=== PATIENT | male | born 1960 | race Caucasian/White ===

== ENCOUNTER 2020-02-29 07:41 | Inpatient (IN) | payer OTHER, SELFPAY ==
[2020-02-29] VITALS (9 sets, daily range): BP systolic 91–141; BP diastolic 63–81; PULSE 55–75; RESP 18–20; TEMP 36.1–36.8; O2SAT 91–98; BMI 46.8
--- NOTE | 2020-02-29 08:19 | ED_ITS ---
HPI - Fall General Chief Complaint: Fall Stated Complaint: fall, face lac Time Seen by Provider: 02/29/20 08:19 Source: EMS Mode of arrival: EMS Limitations: no limitations History of Present Illness HPI Narrative: patient has history of sleep apnea on home oxygen with history of atrial fibrillation was walking upstairs took 2 steps lost balance felt dizzy and fell backwards hitting his head to the oxygen tank came with superficial abrasion to left 2nd toe and right ear pinna patient denies any loss of conscio usness no nausea no vomiting. Patient does have chronic leg venous stasis with poor follow-up has not seen any wound clinic for last 1 year does dressing of his own MD complaint: fall Onset (ago): minute(s) ( just prior to arrival) Fall from: standing Fall witnessed: no Place fall occurred: home Loss of consciousness: none Symptoms prior to fall: dizziness Context: tripped/slipped Location of injury: head and other ( left 2nd toe) Related Data Home Medications Medication Instructions Recorded Confirmed atorvastatin 40 mg PO BEDTIME 02/29/20 02/29/20 bumetanide 2 mg PO BID 02/29/20 02/29/20 diltiazem HCl [Diltia XT] 240 mg PO BID 02/29/20 02/29/20 metoprolol succinate 100 mg PO BID 02/29/20 02/29/20 rivaroxaban [Xarelto] 20 mg PO DAILY 02/29/20 02/29/20 Allergies Allergy/AdvReac Type Severity Reaction Status Date / Time No Known Allergies Allergy Unverified 12/22/19 15:34 [No Known Allergies*] Review of Systems Review of Systems: REVIEW OF SYSTEMS: Pertinent positives and negatives are stated above in the history. GEN: no fevers, chills, fatigue HEENT: no nasal congestion, sore throat, ear pain NEURO: no headache, dizziness, focal weakness PULM: no cough, shortness of breath CV: no chest pain, palpitations, ABD: no abdominal pain, nausea, vomiting, diarrhea : no dysuria, urgency, frequency SKIN: chronic venous stasis bilateral legs ROS otherwise negative x 10 PMFSH Past Medical History Medical History (Updated 02/29/20 @ 14:24 by Wolf Thomas MD) Cellulitis COPD (chronic obstructive pulmonary disease) Hypercholesteremia Hyperlipemia Hypertension Social History Social History Alcohol intake: current Alcohol intake frequency: 3 or more drinks per day Smoking Status: Current every day smoker Use of substances other than those prescribed or required for medical reasons: No Advance Directives: No Advance Directives Information Provided: Yes Physical Exam Vital Signs: Vital Signs: Last Vital Signs Pulse 55 02/29/20 12:00 Resp 18 02/29/20 12:00 BP 91/65 02/29/20 12:00 Pulse Ox 98 02/29/20 12:00 Body Mass Index 46.8 Const: General: cooperative, comfortable, no acute distress and well developed Nutritional Appearance: obese Orientation/consciousness: oriented to person, oriented to place and oriented to time Limitations: no limitations HENMT: Head: Yes abrasion (r EAR) Ears: hearing grossly normal bilaterally General nose exam: Normal external nose present Face and sinus: Yes other (ABRASION RIGHT EAR PAIN) Mouth: Normal oral and palatal mucosa present Eyes: General: appearance normal, both eyes and all related structures Neck: Neck: Yes normal visual inspection Lymphatic: no lymphadenopathy noted Resp: Effort & Inspection: normal respiratory effort Auscultation: clear to auscultation bilaterally, no crackles, no rales and no rhonchi Cardio: Palpation: normal PMI Rate: regular rate Rhythm: regular rhythm Heart sounds: S1 normal heart sound present and S2 normal heart sound present GI: Inspection: Yes normal to inspection Palpation (GI): Soft to palpation and nontender : General: Yes no CVA tenderness Back/Spine/Pelvis: Back: no CVA tenderness Thoracic/Lumbar Spine: thoracic and lumbar spine normal to inspection Skin: Other: venous stasis bilateral lower extremities with crust and weeping wounds with surrounding cellulitis Neuro: General: oriented to person, oriented to place and oriented to time Cranial nerves: Yes CN's II-XII intact bilaterally MDM - Fall MDM Narrative Medical decision making narrative: patient with mechanical fall with no significant injuries CT scan head is negative x-ray is also negative. On further evaluation patient had chronic stasis ulcers on both lower extremities with serous discharge seems to be infected will admit patient for IV antibiotic and wound care as patient has not seen anyone specialist for long time Medical Records Attestation: I reviewed the patient's medical records. Lab Data Attestation: I reviewed the patient's lab results. Result diagrams: 02/29/20 06:07 02/29/20 06:07 Labs: Lab Results 02/29/20 02/29/20 02/29/20 Range/Units 06:07 06:07 08:42 WBC 6.1 (4.8-10.8) X10*3/uL RBC 3.89 L (4.60-5.80) X10*6/uL Hgb 11.3 L (14.0-18.0) g/dl Hct 37.4 L (42-52) % MCV 96.1 (80-98) fL MCH 29.0 (27.0-33.0) pg MCHC 30.2 L (31.0-36.0) g/dl RDW 17.0 H (11.0-16.0) % Plt Count 269 (160-400) X10*3/uL MPV 9.3 L (9.4-12.4) fL Immature Gran % (Auto) 1.5 H (0.0-0.4) % Neut % (Auto) 76.5 H (45-73) % Lymph % (Auto) 7.7 L (20-40) % [place] % (Auto) 13.0 H (2-11) % Eos % (Auto) 1.0 (0-4) % Baso % (Auto) 0.3 (0-2) % Lymph # (Auto) 0.5 L (1.2-4.9) X10*3/uL [place] # (Auto) 0.8 (0.1-1.2) X10*3/uL Eos # (Auto) 0.1 (0.0-0.4) X10*3/uL Baso # (Auto) 0.0 (0.0-0.2) X10*3/uL Abs Immat Gran (auto) 0.09 H (0.00-0.03) X10*3/uL Absolute Neuts (auto) 4.7 (2.0-8.3) X10*3/uL Absolute Nucleated RBC 0.020 H (0.0-0.012) X10*3/uL Nucleated RBC % (auto) 0.3 H (0.0-0.2) /100WBC Smear Tech's Comments VERIFIED PT (10.8-13.0) SEC INR (0.9-1.1) APTT (24.1-38.0) SEC Sodium 135 (135-145) mmol/L Potassium 4.3 (3.3-5.1) mmol/l Chloride 95 L (96-108) mmol/L Carbon Dioxide 27 (22-29) mmol/L Anion Gap 17 (12-20) BUN 28 H (9-16) mg/dL Creatinine 0.87 (0.5-1.4) mg/dL Estim Creat Clear Calc 139.5 Estimated GFR > 60 Random Glucose 111 (60-115) mg/dL Lactic Acid (0.5-2.0) mmol/L Calcium 7.9 L (8.4-10.2) mg/dL Total Bilirubin 0.5 (0.0-1.0) mg/dL Direct Bilirubin 0.4 (0.0-0.5) mg/dL AST 19 (5-37) U/L ALT 12 (0-40) U/L Alkaline Phosphatase 173 H (39-117) U/L Troponin I High Sens (<3.5-35.0) ng/L B-Natriuretic Peptide (<100) pg/mL Total Protein 7.1 (6.5-8.0) g/dL Albumin 3.1 L (3.5-5.0) g/dL Coronavirus (PCR) (Negative) Influenza Type A (PCR) (Negative) Influenza Type B (PCR) (Negative) RSV RNA Qual (PCR) (Negative) 02/29/20 02/29/20 02/29/20 Range/Units 08:42 08:42 08:43 WBC (4.8-10.8) X10*3/uL RBC (4.60-5.80) X10*6/uL Hgb (14.0-18.0) g/dl Hct (42-52) % MCV (80-98) fL MCH (27.0-33.0) pg MCHC (31.0-36.0) g/dl RDW (11.0-16.0) % Plt Count (160-400) X10*3/uL MPV (9.4-12.4) fL Immature Gran % (Auto) (0.0-0.4) % Neut % (Auto) (45-73) % Lymph % (Auto) (20-40) % [place] % (Auto) (2-11) % Eos % (Auto) (0-4) % Baso % (Auto) (0-2) % Lymph # (Auto) (1.2-4.9) X10*3/uL [place] # (Auto) (0.1-1.2) X10*3/uL Eos # (Auto) (0.0-0.4) X10*3/uL Baso # (Auto) (0.0-0.2) X10*3/uL Abs Immat Gran (auto) (0.00-0.03) X10*3/uL Absolute Neuts (auto) (2.0-8.3) X10*3/uL Absolute Nucleated RBC (0.0-0.012) X10*3/uL Nucleated RBC % (auto) (0.0-0.2) /100WBC Smear Tech's Comments PT 14.0 H (10.8-13.0) SEC INR 1.2 H (0.9-1.1) APTT 41.5 H (24.1-38.0) SEC Sodium (135-145) mmol/L Potassium (3.3-5.1) mmol/l Chloride (96-108) mmol/L Carbon Dioxide (22-29) mmol/L Anion Gap (12-20) BUN (9-16) mg/dL Creatinine (0.5-1.4) mg/dL Estim Creat Clear Calc Estimated GFR Random Glucose (60-115) mg/dL Lactic Acid 1.7 (0.5-2.0) mmol/L Calcium (8.4-10.2) mg/dL Total Bilirubin (0.0-1.0) mg/dL Direct Bilirubin (0.0-0.5) mg/dL AST (5-37) U/L ALT (0-40) U/L Alkaline Phosphatase (39-117) U/L Troponin I High Sens (<3.5-35.0) ng/L B-Natriuretic Peptide 205 H (<100) pg/mL Total Protein (6.5-8.0) g/dL Albumin (3.5-5.0) g/dL Coronavirus (PCR) (Negative) Influenza Type A (PCR) (Negative) Influenza Type B (PCR) (Negative) RSV RNA Qual (PCR) (Negative) 02/29/20 02/29/20 Range/Units 08:44 12:23 WBC (4.8-10.8) X10*3/uL RBC (4.60-5.80) X10*6/uL Hgb (14.0-18.0) g/dl Hct (42-52) % MCV (80-98) fL MCH (27.0-33.0) pg MCHC (31.0-36.0) g/dl RDW (11.0-16.0) % Plt Count (160-400) X10*3/uL MPV (9.4-12.4) fL Immature Gran % (Auto) (0.0-0.4) % Neut % (Auto) (45-73) % Lymph % (Auto) (20-40) % [place] % (Auto) (2-11) % Eos % (Auto) (0-4) % Baso % (Auto) (0-2) % Lymph # (Auto) (1.2-4.9) X10*3/uL [place] # (Auto) (0.1-1.2) X10*3/uL Eos # (Auto) (0.0-0.4) X10*3/uL Baso # (Auto) (0.0-0.2) X10*3/uL Abs Immat Gran (auto) (0.00-0.03) X10*3/uL Absolute Neuts (auto) (2.0-8.3) X10*3/uL Absolute Nucleated RBC (0.0-0.012) X10*3/uL Nucleated RBC % (auto) (0.0-0.2) /100WBC Smear Tech's Comments PT (10.8-13.0) SEC INR (0.9-1.1) APTT (24.1-38.0) SEC Sodium (135-145) mmol/L Potassium (3.3-5.1) mmol/l Chloride (96-108) mmol/L Carbon Dioxide (22-29) mmol/L Anion Gap (12-20) BUN (9-16) mg/dL Creatinine (0.5-1.4) mg/dL Estim Creat Clear Calc Estimated GFR Random Glucose (60-115) mg/dL Lactic Acid (0.5-2.0) mmol/L Calcium (8.4-10.2) mg/dL Total Bilirubin (0.0-1.0) mg/dL Direct Bilirubin (0.0-0.5) mg/dL AST (5-37) U/L ALT (0-40) U/L Alkaline Phosphatase (39-117) U/L Troponin I High Sens < 3.5 (<3.5-35.0) ng/L B-Natriuretic Peptide (<100) pg/mL Total Protein (6.5-8.0) g/dL Albumin (3.5-5.0) g/dL Coronavirus (PCR) NEGATIVE (Negative) Influenza Type A (PCR) NEGATIVE (Negative) Influenza Type B (PCR) NEGATIVE (Negative) RSV RNA Qual (PCR) NEGATIVE (Negative) ECG Data Attestation: I personally reviewed and interpreted this ECG as follows: ECG interpretation date: 02/29/20 Interpretation: atrial fibrillation with ventricular rate of 64 RBBB, no acute ST T wave changes poor progression of R-wave impression:: atrial fibrillation no acute ischemia Discharge Plan Discharge Clinical Impression: Infected wound Fall Qualifiers: Encounter type: initial encounter Qualified Code(s): W19.XXXA - Unspecified fall, initial encounter Patient Disposition: Admitted As Inpatient
--- NOTE | 2020-02-29 08:29 | XR_ITS ---
EXAMINATION: CT HEAD WITHOUT CONTRAST. LEFT FOOT AND CHEST. CLINICAL INFORMATION: SOB, cough. Status post fall COMPARISON: None TECHNIQUE: 5 mm thin axial and reformatted 2 mm thin sagittal and coronal images of brain were obtained without contrast. DLP 822. Chest one view. Left foot 3 views. FINDINGS: BRAIN: There is no acute intra-axial, extra-axial bleed, masses or midline shift. The santos to white matter differentiation is maintained. The lateral ventricles are symmetrical in size and configuration without enlargement. Bone windows reveal no calvarial abnormality. I lateral paranasal sinuses and mastoid air cells are well-aerated. There is no scalp soft tissue abnormality. CHEST: The lungs are well-expanded and clear of acute process. Heart size is enlarged with mild prominence of pulmonary vascularity but no congestion seen. No gross bony abnormality noted. LEFT FOOT: There is no visible acute fracture, dislocation or subluxation seen. The ankle mortise and subtalar joints are normal. There is not fully mild dorsal foot soft tissue swelling XR/XR chest 1V IMPRESSION: No acute intracranial process seen. Mild cardiomegaly without congestion. No visible acute fracture or dislocation left foot. Mild nonspecific dorsal foot soft tissue swelling.
--- NOTE | 2020-02-29 08:29 | ECG_ITS ---
Test Reason : SOB Blood Pressure : / mmHG Vent. Rate : 064 BPM Atrial Rate : 153 BPM P-R Int : 000 ms QRS Dur : 152 ms QT Int : 524 ms P-R-T Axes : 000 067 097 degrees QTc Int : 540 ms Atrial fibrillation Right bundle branch block Abnormal ECG When compared with ECG of [id number] Right bundle branch block is new Heart rate has decreased Referred By: Yefri Reyes Electronically Signed By:MOHAN JANG MD
--- NOTE | 2020-02-29 08:30 | PC.NURSE ---
Patient arrives after falling at home after becoming dizzy and tripping on stair. Abrasions noted to right ear, right knee, and both feet. Alert and oriented. Patient lives alone and struggles to get around house and care for self. Patient appears to have poor hygiene. Cellulitis to bilateral legs. Wrapped in gauze but bandages appear saturated and old. Wet dermatitis under all skin folds. Patient reports having COPD and feeling some SOB at times, dry coughing at times. Respirations otherwise appear regular and even. EKG obtained at bedside and shows afib. Patient reports heart issue that he sees lead security officer for but cannot remember what kind of issue. Reports taking metoprolol. IV established and labs drawn. Patient tolerated well. Evaluated by Dr. Reyes. Went for imaging. Awaiting results.
--- NOTE | 2020-02-29 08:34 | CT_ITS ---
EXAMINATION: CT HEAD WITHOUT CONTRAST. LEFT FOOT AND CHEST. CLINICAL INFORMATION: SOB, cough. Status post fall COMPARISON: None TECHNIQUE: 5 mm thin axial and reformatted 2 mm thin sagittal and coronal images of brain were obtained without contrast. DLP 822. Chest one view. Left foot 3 views. FINDINGS: BRAIN: There is no acute intra-axial, extra-axial bleed, masses or midline shift. The santos to white matter differentiation is maintained. The lateral ventricles are symmetrical in size and configuration without enlargement. Bone windows reveal no calvarial abnormality. I lateral paranasal sinuses and mastoid air cells are well-aerated. There is no scalp soft tissue abnormality. CHEST: The lungs are well-expanded and clear of acute process. Heart size is enlarged with mild prominence of pulmonary vascularity but no congestion seen. No gross bony abnormality noted. LEFT FOOT: There is no visible acute fracture, dislocation or subluxation seen. The ankle mortise and subtalar joints are normal. There is not fully mild dorsal foot soft tissue swelling CT/CT head/brain wo con IMPRESSION: No acute intracranial process seen. Mild cardiomegaly without congestion. No visible acute fracture or dislocation left foot. Mild nonspecific dorsal foot soft tissue swelling.
[2020-02-29 08:59] LABS: Basophils Percent Auto 0.3 % (0-2); Eosinophils Absolute Auto 0.1 X10*3/uL (0.0-0.4); Hematocrit 37.4 % (42-52); Hemoglobin 11.3 g/dl (14.0-18.0); Imm Gran Abs Auto 0.09 X10*3/uL (0.00-0.03); Imm Gran Pct Auto 1.5 % (0.0-0.4); Lymphocytes Absolute Auto 0.5 X10*3/uL (1.2-4.9); Lymphocytes Percent Auto 7.7 % (20-40); MANUAL DIFF FLAG SCAN; Mean Corpuscular HGB Conc 30.2 g/dl (31.0-36.0); Mean Corpuscular Volume 96.1 fL (80-98); Mean Platelet Volume 9.3 fL (9.4-12.4); Monocytes Absolute Auto 0.8 X10*3/uL (0.1-1.2); NRBC Pct Auto 0.3 /100WBC (0.0-0.2); Neutrophils Absolute Auto 4.7 X10*3/uL (2.0-8.3); Neutrophils Percent Auto 76.5 % (45-73); Platelet Count 269 X10*3/uL (160-400); Red Blood Count 3.89 X10*6/uL (4.60-5.80); SCAN SMEAR FLAG 1; White Blood Count 6.1 X10*3/uL (4.8-10.8)
[2020-02-29 09:04] LABS: INTERNATIONAL NORM RATIO 1.2 (0.9-1.1)
[2020-02-29 09:07] LABS: Partial Thromboplastin Time 41.5 SEC (24.1-38.0)
[2020-02-29 09:15] LABS: Lactic Acid 1.7 mmol/L (0.5-2.0)
[2020-02-29 09:30] LABS: Anion Gap 17 (12-20); Blood Urea Nitrogen 28 mg/dL (9-16); Calcium 7.9 mg/dL (8.4-10.2); Carbon Dioxide 27 mmol/L (22-29); Chloride 95 mmol/L (96-108); Creatinine Clr Calc Pharmacy 139.5; Estimated Glomerular Filt Rate > 60; Glucose Random 111 mg/dL (60-115); Potassium 4.3 mmol/l (3.3-5.1); Sodium 135 mmol/L (135-145)
[2020-02-29 09:31] LABS: Alanine Aminotransferase 12 U/L (0-40); Albumin Level 3.1 g/dL (3.5-5.0); Alkaline Phosphatase 173 U/L (39-117); Aspartate Amino Transferase 19 U/L (5-37); Bilirubin Direct 0.4 mg/dL (0.0-0.5); Bilirubin Total 0.5 mg/dL (0.0-1.0); Total Protein 7.1 g/dL (6.5-8.0)
[2020-02-29 09:37] LABS: B Type Natriuretic Peptide 205 pg/mL (<100)
[2020-02-29 09:38] LABS: Troponin-I High Sensitivity < 3.5 ng/L (<3.5-35.0)
[2020-02-29 09:51] LABS: SLIDE REVIEW VERIFIED
--- NOTE | 2020-02-29 10:30 | PC.NURSE ---
Patient resting comfortably on stretcher. Respirations remain regular and even with dry cough. O2 sat high 90s on room air. VSS. Patient aware of plan of care for admission. Wraps removed from both legs. Bandage stuck to most of skin. Much of skin is . No bleeding noted. Foul odor. Dr. Reyes to bedside, layered legs with gauze pads and soaked in hydrogen peroxide and saline. Will allow to sit.
[2020-02-29] MEDS: Piperacillin Sodium/Tazobactam 3.375 GM in 0.9 % Sodium Chloride 50 ML IV (12:09)
--- NOTE | 2020-02-29 12:13 | PC.NURSE ---
Zenon Jernigan. Patient tolerating well. Legs continue to soak. Awaiting admission orders.
[2020-02-29 13:15] LABS: Influenza A PCR NEGATIVE (Negative); Influenza B PCR NEGATIVE (Negative); Resp Syncy Virus RNA Qual PCR NEGATIVE (Negative); SARS COV2 PCR INHOUSE NEGATIVE (Negative)
--- NOTE | 2020-02-29 13:51 | PC.NURSE ---
Soaked gauze removed from legs. Bedding beneath replaced with dry linen. Will allow legs time to dry and then rewrap with dry wrap.
--- NOTE | 2020-02-29 14:17 | PM.IMHP ---
History of Present Illness Date of Service: 02/29/20 Chief Complaint: fall 60M presented status post mechanical fall. patient denies chest pain, syncope, significant trauma, states it was purely mechanical due to worsening lower extremity pain and edema. Patient has chronic venous stasis that has been worsening over the last several weeks. He notes increased weeping, pain. Denies fever chills. He notes about a 50 lb weight gain over the last several months. Patient is on Bumex 2 mg b.i.d. for chronic CHF with reduced EF of 45-50% and right ventricular dysfunction. However, he is alcohol dependent and drinks about half a pt of vodka a day. In ED, trauma workup was negative. he was given Zosyn to cover any superficial cellulitis on his ulcers. Admission was requested. Review of Systems Review of Systems: Constitutional: Denies fever, denies Chills Eyes: denies blurry vision ENT: denies sore throat CVS: denies chest pain Respiratory: dyspnea on exertion GI: bloating : denies dysuria MSK: denies neck pain Skin: lower extremity weeping Neuro: denies specific motor weakness Psych: denies suicidal ideation Endocrine: denies heat/cold intoleratnce Hematologic: denies easy bleeding Allergy: denies hives [facility] Medical History (Updated 02/29/20 @ 14:24 by Wolf Thomas MD) Cellulitis COPD (chronic obstructive pulmonary disease) Hypercholesteremia Hyperlipemia Hypertension Pertinent family history: positve for cad Social History Alcohol intake: current Alcohol intake frequency: 3 or more drinks per day Smoking Status: Current every day smoker Use of substances other than those prescribed or required for medical reasons: No Advance Directives: No Advance Directives Information Provided: Yes Meds Allergies Allergy/AdvReac Type Severity Reaction Status Date / Time No Known Allergies Allergy Unverified 12/22/19 15:34 [No Known Allergies*] Home Medications Medication Instructions Recorded Confirmed Type atorvastatin 40 mg PO BEDTIME 02/29/20 02/29/20 History bumetanide 2 mg PO BID 02/29/20 02/29/20 History diltiazem HCl [Diltia XT] 240 mg PO BID 02/29/20 02/29/20 History metoprolol succinate 100 mg PO BID 02/29/20 02/29/20 History rivaroxaban [Xarelto] 20 mg PO DAILY 02/29/20 02/29/20 History Physical Exam Vital Signs and Narrative: Vital Signs: Last Vital Signs Pulse 55 02/29/20 12:00 Resp 18 02/29/20 12:00 BP 91/65 02/29/20 12:00 Pulse Ox 98 02/29/20 12:00 Body Mass Index 46.8 General: no acute distress HEENT: atraumatic Neck: normal to visual inspection CVS: S1, S2, RRR Resp: CTA bilateral Chest: non tender GI: soft, non tender, non distended : no CVA tenderness Skin: stasis dermatitis, plantar fungal infection Extremities: 3+ edema, stasis ulcers with some surrounding erythema Neuro: Oriented X3, grossly intact Psych: cooperative, Results Labs CBC and Chem 7: 02/29/20 06:07 02/29/20 06:07 Labs: Laboratory Results - last 24 hr 02/29/20 02/29/20 02/29/20 06:07 06:07 08:42 MCV 96.1 MCH 29.0 MCHC 30.2 L RDW 17.0 H Plt Count 269 MPV 9.3 L Immature Gran % (Auto) 1.5 H Neut % (Auto) 76.5 H Lymph % (Auto) 7.7 L [place] % (Auto) 13.0 H Eos % (Auto) 1.0 Baso % (Auto) 0.3 Lymph # (Auto) 0.5 L [place] # (Auto) 0.8 Eos # (Auto) 0.1 Baso # (Auto) 0.0 Abs Immat Gran (auto) 0.09 H Absolute Neuts (auto) 4.7 Absolute Nucleated RBC 0.020 H Nucleated RBC % (auto) 0.3 H Smear Tech's Comments VERIFIED PT INR APTT Anion Gap 17 Estim Creat Clear Calc 139.5 Estimated GFR > 60 Random Glucose 111 Lactic Acid Calcium 7.9 L Total Bilirubin 0.5 Direct Bilirubin 0.4 AST 19 ALT 12 Alkaline Phosphatase 173 H Troponin I High Sens B-Natriuretic Peptide Total Protein 7.1 Albumin 3.1 L Coronavirus (PCR) Influenza Type A (PCR) Influenza Type B (PCR) RSV RNA Qual (PCR) 02/29/20 02/29/20 02/29/20 08:42 08:42 08:43 MCV MCH MCHC RDW Plt Count MPV Immature Gran % (Auto) Neut % (Auto) Lymph % (Auto) [place] % (Auto) Eos % (Auto) Baso % (Auto) Lymph # (Auto) [place] # (Auto) Eos # (Auto) Baso # (Auto) Abs Immat Gran (auto) Absolute Neuts (auto) Absolute Nucleated RBC Nucleated RBC % (auto) Smear Tech's Comments PT 14.0 H INR 1.2 H APTT 41.5 H Anion Gap Estim Creat Clear Calc Estimated GFR Random Glucose Lactic Acid 1.7 Calcium Total Bilirubin Direct Bilirubin AST ALT Alkaline Phosphatase Troponin I High Sens B-Natriuretic Peptide 205 H Total Protein Albumin Coronavirus (PCR) Influenza Type A (PCR) Influenza Type B (PCR) RSV RNA Qual (PCR) 02/29/20 02/29/20 08:44 12:23 MCV MCH MCHC RDW Plt Count MPV Immature Gran % (Auto) Neut % (Auto) Lymph % (Auto) [place] % (Auto) Eos % (Auto) Baso % (Auto) Lymph # (Auto) [place] # (Auto) Eos # (Auto) Baso # (Auto) Abs Immat Gran (auto) Absolute Neuts (auto) Absolute Nucleated RBC Nucleated RBC % (auto) Smear Tech's Comments PT INR APTT Anion Gap Estim Creat Clear Calc Estimated GFR Random Glucose Lactic Acid Calcium Total Bilirubin Direct Bilirubin AST ALT Alkaline Phosphatase Troponin I High Sens < 3.5 B-Natriuretic Peptide Total Protein Albumin Coronavirus (PCR) NEGATIVE Influenza Type A (PCR) NEGATIVE Influenza Type B (PCR) NEGATIVE RSV RNA Qual (PCR) NEGATIVE Imaging Radiologist's Impressions: Impressions Chest X-Ray 02/29/20 08:29 IMPRESSION: No acute intracranial process seen. Mild cardiomegaly without congestion. No visible acute fracture or dislocation left foot. Mild nonspecific dorsal foot soft tissue swelling. Foot X-Ray 02/29/20 08:33 IMPRESSION: No acute intracranial process seen. Mild cardiomegaly without congestion. No visible acute fracture or dislocation left foot. Mild nonspecific dorsal foot soft tissue swelling. Head CT 02/29/20 08:34 IMPRESSION: No acute intracranial process seen. Mild cardiomegaly without congestion. No visible acute fracture or dislocation left foot. Mild nonspecific dorsal foot soft tissue swelling. Assessment and Plan (1) Fall: Qualifiers: Encounter type: initial encounter Qualified Code(s): W19.XXXA - Unspecified fall, initial encounter Status: Acute (2) Heart failure with reduced ejection fraction and diastolic dysfunction: Problem details: last ef reported 45-50%, RV dysfunction Status: Acute (3) Morbid obesity: Status: Acute (4) Obesity hypoventilation syndrome: Status: Acute (5) Atrial fibrillation: Status: Acute (6) Chronic venous stasis: Status: Acute (7) Cellulitis: Status: Acute (8) Alcohol dependence: Problem details: with withdrawl Status: Acute (9) Hypertension: Status: Acute (10) COPD (chronic obstructive pulmonary disease): Status: Acute 60M presented with fall, found to have worsening chronic leg wounds fall mechanical due to leg edema and 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
[2020-02-29] MEDS: oxyCODONE HCl Immed Release 5 MG TABLET 10 MG PO (14:18)
[2020-02-29] MEDS: Nicotine 21 MG PATCH.TD24 TRANSDERMA (15:27)
[2020-02-29] MEDS: PHENobarbitaL sodium 130 MG/ML VIAL 249 MG IM (15:28)
[2020-02-29] MEDS: 0.9 % Sodium Chloride Flush 3 ML SYRINGE IVFLUSH (17:29)
[2020-02-29] MEDS: PHENobarbitaL sodium 65 MG/ML VIAL 187 MG IM ×2 (17:29→21:46)
[2020-02-29] MEDS: ceFAZolin Sodium/Dextrose,Iso 2 GM/50 ML PIGGYBACK IV (17:30)
[2020-02-29] MEDS: Flu Vacc QS2020-21(6mos up)/PF 0.5 ML SYRINGE IM (17:31)
[2020-02-29] MEDS: oxyCODONE HCl Immed Release 5 MG TABLET PO (21:45)
[2020-02-29] MEDS: Atorvastatin Calcium 40 MG TABLET PO (21:46)
[2020-02-29] MEDS: Metoprolol Succinate ER 100 MG TAB.ER.24H PO (21:47)
[2020-02-29] MEDS: Bumetanide 1 MG/4 ML VIAL 2 MG IVPUSH (21:47)
[2020-03-01] VITALS (7 sets, daily range): BP systolic 99–134; BP diastolic 59–87; PULSE 68–94; RESP 16–20; TEMP 36.1–36.6; O2SAT 91–97; BMI 47.2
[2020-03-01] MEDS: ceFAZolin Sodium/Dextrose,Iso 2 GM/50 ML PIGGYBACK IV ×3 (01:15→17:13)
[2020-03-01] MEDS: 0.9 % Sodium Chloride Flush 3 ML SYRINGE IVFLUSH ×3 (01:20→17:14)
[2020-03-01] MEDS: PHENobarbitaL 30 MG TABLET 60 MG PO ×2 (09:13→21:02)
[2020-03-01] MEDS: Bumetanide 1 MG/4 ML VIAL 2 MG IVPUSH ×2 (09:14→21:02)
[2020-03-01] MEDS: Metoprolol Succinate ER 100 MG TAB.ER.24H PO ×2 (09:14→21:02)
[2020-03-01] MEDS: Rivaroxaban 20 MG TABLET PO (09:14)
--- NOTE | 2020-03-01 09:52 | MHC.CM.PN ---
CM met with Patient. Patient lives alone on the second floor of a two family house, with his Sister living on the first floor. Patient declines VNA. Patient's goal is to return home and CM has initiated and will follow for dc planning.PCP is Dr. Allen Lyons. O2 is supplied from [facility].
[2020-03-01] MEDS: Acetaminophen 325 MG TABLET 650 MG PO (10:03)
[2020-03-01 10:50] LABS: Basophils Percent Auto 0.3 % (0-2); Eosinophils Absolute Auto 0.1 X10*3/uL (0.0-0.4); Eosinophils Percent Auto 1.3 % (0-4); Hematocrit 34.5 % (42-52); Hemoglobin 10.5 g/dl (14.0-18.0); Imm Gran Abs Auto 0.04 X10*3/uL (0.00-0.03); Imm Gran Pct Auto 0.6 % (0.0-0.4); Lymphocytes Absolute Auto 0.5 X10*3/uL (1.2-4.9); Lymphocytes Percent Auto 8.1 % (20-40); MANUAL DIFF FLAG SCAN; Mean Corpuscular HGB Conc 30.4 g/dl (31.0-36.0); Mean Corpuscular Hemoglobin 29.1 pg (27.0-33.0); Mean Corpuscular Volume 95.6 fL (80-98); Mean Platelet Volume 9.6 fL (9.4-12.4); Monocytes Absolute Auto 0.6 X10*3/uL (0.1-1.2); Monocytes Percent Auto 9.6 % (2-11); Neutrophils Absolute Auto 5.4 X10*3/uL (2.0-8.3); Neutrophils Percent Auto 80.1 % (45-73); Platelet Count 206 X10*3/uL (160-400); Red Blood Count 3.61 X10*6/uL (4.60-5.80); Red Cell Distribution Width 16.7 % (11.0-16.0); SCAN SMEAR FLAG 1; White Blood Count 6.7 X10*3/uL (4.8-10.8)
[2020-03-01 11:07] LABS: Anion Gap 14 (12-20); Blood Urea Nitrogen 24 mg/dL (9-16); Calcium 7.9 mg/dL (8.4-10.2); Carbon Dioxide 33 mmol/L (22-29); Chloride 92 mmol/L (96-108); Creatinine Clr Calc Pharmacy 146.9; Estimated Glomerular Filt Rate > 60; Glucose Random 124 mg/dL (60-115); Magnesium 1.7 mg/dL (1.6-2.6); Potassium 3.6 mmol/l (3.3-5.1); Sodium 135 mmol/L (135-145)
--- NOTE | 2020-03-01 11:22 | P.PNIM_ITS ---
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 Cardiovascular Cardiovascular: Reports no additional cardiovascular complaints Respiratory Respiratory: Reports no additional respiratory complaints Physical Exam Vital Signs: Vital Signs: Last Vital Signs Temp 97.4 F 03/01/20 08:00 Pulse 77 03/01/20 08:00 Resp 18 03/01/20 08:00 BP 134/70 03/01/20 08:00 Pulse Ox 95 03/01/20 08:00 Body Mass Index 47.2 General: AO X 3, no acute distress Resp: CTA bilateral CVS: S1,S2,RRR, 3+ edema, seems to have lessened GI: soft, non tender, non distended Neuro: motor grossly intact Psych: appropriate affect Skin: scaly chornic looking bilateral lower extremity with mild superimposed erythema Objective Data Current Medications Generic Name Dose Route Start Last Admin Trade Name Freq PRN Reason Stop Dose Admin Acetaminophen 650 mg 02/29/20 16:28 03/01/20 10:03 Acetaminophen 325 Mg Tablet PO 650 mg Q6H PRN Administration Pain, Mild (Pain Scale 1-3) Atorvastatin Calcium 40 mg 02/29/20 21:00 02/29/20 21:46 Atorvastatin Calcium 40 Mg Tablet PO 40 mg BEDTIME BECK Administration Bumetanide 2 mg 02/29/20 21:00 03/01/20 09:14 Bumetanide 1 Mg/4 Ml Vial IVPUSH 2 mg BID BECK Administration Protocol Guaifenesin 1,200 mg 03/01/20 10:02 Guaifenesin La 600 Mg Tab.Er.12h PO BID PRN cough Cefazolin Sodium/Dextrose 2 gm in 50 mls @ 100 mls/hr 02/29/20 18:00 03/01/20 09:56 Ancef IV Infused Q8H [facility] Infusion Medication 1 each 02/29/20 15:00 No Benzodiazepines MISCELLANE DAILY BECK Metoprolol Succinate 100 mg 02/29/20 21:00 03/01/20 09:14 Metoprolol Succinate Er 100 Mg Tab.Er.24h PO 100 mg BID BECK Administration Protocol Nystatin 1 appl 03/01/20 15:00 Nystatin Powder 15 Gm Bottle TOPICAL TID BECK Protocol Pharmacy Consult 1 each 02/29/20 11:55 Consult Rx Perform Med Rec MISCELLANE ONCE PRN Consult order Phenobarbital 60 mg 03/01/20 09:00 03/01/20 09:13 Phenobarbital 30 Mg Tablet PO 03/02/20 21:01 60 mg BID BECK Administration Protocol Phenobarbital 30 mg 03/03/20 09:00 Phenobarbital 30 Mg Tablet PO 03/04/20 21:01 BID BECK Protocol Phenobarbital 30 mg 03/05/20 09:00 Phenobarbital 30 Mg Tablet PO 03/06/20 09:01 DAILY [facility] Protocol Rivaroxaban 20 mg 03/01/20 09:00 03/01/20 09:14 Rivaroxaban 20 Mg Tablet PO 20 mg DAILY BECK Administration Sodium Chloride 3 ml 02/29/20 16:28 03/01/20 09:15 0.9 % Sodium Chloride Flush 3 Ml Syringe IVFLUSH 3 ml QSHIFT [facility] Administration Labs CBC & Chem 7: 02/29/20 06:07 03/01/20 09:52 Microbiology Microbiology Results: Microbiology 02/29/20 09:04 Blood - Venous Blood Culture - Preliminary No growth after 24 hours. 02/29/20 08:41 Blood - Venous Blood Culture - Preliminary No growth after 24 hours. Assessment and Plan (1) Fall: Status: Acute (2) Heart failure with reduced ejection fraction and diastolic dysfunction: Problem details: last ef reported 45-50%, RV dysfunction Status: Acute (3) Morbid obesity: Status: Acute (4) Obesity hypoventilation syndrome: Status: Acute (5) Atrial fibrillation: Status: Acute (6) Chronic venous stasis: Status: Acute (7) Cellulitis: Status: Acute (8) Alcohol dependence: Problem details: with withdrawl Status: Acute (9) Hypertension: Status: Acute (10) COPD (chronic obstructive pulmonary disease): Status: Acute Assessment and Plan: 60M presented with fall, found to have worsening chronic leg wounds fall mechanical due to leg edema and 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
[2020-03-01 11:23] LABS: SLIDE REVIEW VERIFIED
[2020-03-01] MEDS: Nystatin Powder 15 GM BOTTLE 1 APPL TOPICAL ×2 (13:14→21:03)
[2020-03-01] MEDS: guaiFENesin LA 600 MG TAB.ER.12H 1200 MG PO (13:14)
[2020-03-01] MEDS: Nicotine 21 MG PATCH.TD24 TRANSDERMA (14:27)
[2020-03-01] MEDS: Atorvastatin Calcium 40 MG TABLET PO (21:02)
[2020-03-02] VITALS: BP 116/58; PULSE 93; RESP 18; TEMP 36.5; O2SAT 90
[2020-03-02] MEDS: 0.9 % Sodium Chloride Flush 3 ML SYRINGE IVFLUSH ×2 (00:57→09:59)
[2020-03-02] MEDS: ceFAZolin Sodium/Dextrose,Iso 2 GM/50 ML PIGGYBACK IV ×2 (00:58→10:04)
[2020-03-02 04:00] VITALS: BP 125/59; PULSE 109; RESP 20; TEMP 36.4; O2SAT 93
[2020-03-02 06:00] VITALS: BMI 46.9
[2020-03-02 07:16] LABS: Basophils Percent Auto 0.4 % (0-2); Eosinophils Absolute Auto 0.1 X10*3/uL (0.0-0.4); Eosinophils Percent Auto 1.3 % (0-4); Hematocrit 34.8 % (42-52); Hemoglobin 10.7 g/dl (14.0-18.0); Imm Gran Abs Auto 0.04 X10*3/uL (0.00-0.03); Imm Gran Pct Auto 0.7 % (0.0-0.4); Lymphocytes Absolute Auto 0.7 X10*3/uL (1.2-4.9); Lymphocytes Percent Auto 12.4 % (20-40); MANUAL DIFF FLAG SCAN; Mean Corpuscular HGB Conc 30.7 g/dl (31.0-36.0); Mean Corpuscular Hemoglobin 29.2 pg (27.0-33.0); Mean Corpuscular Volume 95.1 fL (80-98); Mean Platelet Volume 10.1 fL (9.4-12.4); Monocytes Absolute Auto 0.9 X10*3/uL (0.1-1.2); Neutrophils Absolute Auto 3.8 X10*3/uL (2.0-8.3); Neutrophils Percent Auto 69.2 % (45-73); Platelet Count 185 X10*3/uL (160-400); Red Blood Count 3.66 X10*6/uL (4.60-5.80); Red Cell Distribution Width 16.8 % (11.0-16.0); SCAN SMEAR FLAG 1; White Blood Count 5.5 X10*3/uL (4.8-10.8)
[2020-03-02 08:00] VITALS: BP 101/65; PULSE 110; RESP 20; TEMP 36.1; O2SAT 98
[2020-03-02 08:05] LABS: Anion Gap 14 (12-20); Blood Urea Nitrogen 14 mg/dL (9-16); Calcium 7.6 mg/dL (8.4-10.2); Carbon Dioxide 35 mmol/L (22-29); Chloride 91 mmol/L (96-108); Estimated Glomerular Filt Rate > 60; Glucose Fasting 105 mg/dL (60-99); Potassium 3.8 mmol/l (3.3-5.1); Sodium 136 mmol/L (135-145)
[2020-03-02 08:39] LABS: SLIDE REVIEW VERIFIED
[2020-03-02 09:43] VITALS: BP 101/65; PULSE 110; O2SAT 98
[2020-03-02] MEDS: Bumetanide 1 MG/4 ML VIAL 2 MG IVPUSH (09:57)
[2020-03-02] MEDS: Rivaroxaban 20 MG TABLET PO (10:02)
[2020-03-02] MEDS: PHENobarbitaL 30 MG TABLET 60 MG PO (10:03)
[2020-03-02] MEDS: Nicotine 21 MG PATCH.TD24 TRANSDERMA (10:03)
[2020-03-02] MEDS: Nystatin Powder 15 GM BOTTLE 1 APPL TOPICAL (10:05)
--- NOTE | 2020-03-02 10:26 | PM.DS ---
DS: Providers Provider Date of admission: 02/29/20 14:13 Primary care physician: Allen Lyons MD DS: Diagnosis Discharge Diagnosis (1) Fall: Status: Acute (2) Heart failure with reduced ejection fraction and diastolic dysfunction: Status: Acute Problem details: last ef reported 45-50%, RV dysfunction (3) Morbid obesity: Status: Acute (4) Obesity hypoventilation syndrome: Status: Acute (5) Atrial fibrillation: Status: Acute (6) Chronic venous stasis: Status: Acute (7) Cellulitis: Status: Acute (8) Alcohol dependence: Status: Acute Problem details: with withdrawl (9) Hypertension: Status: Acute (10) COPD (chronic obstructive pulmonary disease): Status: Acute DS: Medications Discharge Medications Home Medications: Home Medications Medication Instructions Recorded Confirmed Xarelto 20 mg PO DAILY 02/29/20 02/29/20 atorvastatin 40 mg PO BEDTIME 02/29/20 02/29/20 bumetanide 2 mg PO BID 02/29/20 02/29/20 metoprolol succinate 100 mg PO BID 02/29/20 02/29/20 Previous Rx's Medication Instructions Recorded cephalexin [Keflex] 500 mg PO Q12H #10 cap 03/02/20 DS: Summary Hospital Course Hospital Course: Patient was admitted for worsening bilateral lower extremity chronic venous stasis with superimposed cellulitis, complicated by acute on chronic systolic CHF and right-sided heart failure. Further complicated by alcohol dependence with withdrawal. Patient was treated with IV Bumex, Ancef, phenobarbital. His lower extremity edema significantly improved as did the superimposed cellulitis. Patient's withdrawal symptoms resolved. He is now feeling much better and more confident in his ambulation. He will be discharged home back on p.o. Bumex 2 mg b.i.d., Keflex for 5 days, outpatient wound care follow-up. Patient is instructed to avoid alcohol intake. Time Spent with Patient Time attestation: Total time spent providing and/or coordinating discharge services: Physical Exam Vital Signs: Vital Signs: Last Vital Signs Temp 96.9 F 03/02/20 08:00 Pulse 110 H 03/02/20 09:43 Resp 20 03/02/20 08:00 BP 101/65 03/02/20 09:43 Pulse Ox 98 03/02/20 09:43 Body Mass Index 46.9 General: AO X 3, no acute distress Resp: CTA bilateral CVS: S1,S2,RRR GI: soft, non tender, non distended Neuro: motor grossly intact Psych: appropriate affect SKIN: edema improved, scaly chronic changes, ertyhema improved DS: Data Data Completed and Pending Labs on day of discharge: 02/29/20 06:07 Basic Metabolic Panel Stat Complete Blood Count Auto Diff Stat SLIDE REVIEW Stat 02/29/20 08:29 EKG Documentation DIRECTED XR chest 1V Stat 02/29/20 08:33 XR foot LT 2V Stat 02/29/20 08:34 CT head/brain wo con Stat 02/29/20 08:42 Lactic Acid Stat Liver Panel Stat Partial Thromboplastin Time Stat Prothrombin Time INR Stat 02/29/20 08:43 B Type Natriuretic Peptide Stat 02/29/20 08:44 Troponin-I High Sensitivity Stat 02/29/20 11:11 Piperacillin Sodium/Tazobactam [Zosyn] 3.375 gm 0.9 % Sodium Chloride [Ns] 50 ml IV ONCE 02/29/20 12:04 Piperacillin Sodium/Tazobactam [Zosyn] 3.375 gm IV .STK-MED ONE 02/29/20 12:23 SARS-CoV2/FLU/RSV Stat 02/29/20 13:57 oxyCODONE HCl Immed Release [Roxicodone] 10 mg PO ONCE ONE 02/29/20 14:10 Transfer Order Routine 02/29/20 14:14 Consult Rx EtOH Phenob Dosing 1 each MISCELLANE ONCE ONE 02/29/20 14:16 Nicotine [Nicoderm] 21 mg TRANSDERMA ONCE ONE 02/29/20 14:46 PHENobarbitaL sodium 249 mg IM NOW STA 02/29/20 Lunch Low Sodium Diet 02/29/20 16:28 Intake and Output QSHIFTE 02/29/20 17:05 Flu Vacc [id number](6mos up)/PF [Fluarix Quad ] 0.5 ml IM .ONCE ONE 02/29/20 18:00 PHENobarbitaL sodium 187 mg IM 1800,2100 02/29/20 21:07 oxyCODONE HCl Immed Release [Roxicodone] 5 mg PO ONCE ONE 03/01/20 09:52 Basic Metabolic Panel Routine Complete Blood Count Auto Diff Routine Magnesium Routine SLIDE REVIEW Routine 03/02/20 05:43 BMP [Basic Metabolic Panel Fasting] Routine Complete Blood Count Auto Diff Routine SLIDE REVIEW Routine Laboratory Last Values WBC 5.5 X10*3/uL (4.8-10.8) 03/02/20 05:43 RBC 3.66 X10*6/uL (4.60-5.80) L 03/02/20 05:43 Hgb 10.7 g/dl (14.0-18.0) L 03/02/20 05:43 Hct 34.8 % (42-52) L 03/02/20 05:43 MCV 95.1 fL (80-98) 03/02/20 05:43 MCH 29.2 pg (27.0-33.0) 03/02/20 05:43 MCHC 30.7 g/dl (31.0-36.0) L 03/02/20 05:43 RDW 16.8 % (11.0-16.0) H 03/02/20 05:43 Plt Count 185 X10*3/uL (160-400) 03/02/20 05:43 MPV 10.1 fL (9.4-12.4) 03/02/20 05:43 Immature Gran % (Auto) 0.7 % (0.0-0.4) H 03/02/20 05:43 Neut % (Auto) 69.2 % (45-73) 03/02/20 05:43 Lymph % (Auto) 12.4 % (20-40) L 03/02/20 05:43 [place] % (Auto) 16.0 % (2-11) H 03/02/20 05:43 Eos % (Auto) 1.3 % (0-4) 03/02/20 05:43 Baso % (Auto) 0.4 % (0-2) 03/02/20 05:43 Lymph # (Auto) 0.7 X10*3/uL (1.2-4.9) L 03/02/20 05:43 [place] # (Auto) 0.9 X10*3/uL (0.1-1.2) 03/02/20 05:43 Eos # (Auto) 0.1 X10*3/uL (0.0-0.4) 03/02/20 05:43 Baso # (Auto) 0.0 X10*3/uL (0.0-0.2) 03/02/20 05:43 Abs Immat Gran (auto) 0.04 X10*3/uL (0.00-0.03) H 03/02/20 05:43 Absolute Neuts (auto) 3.8 X10*3/uL (2.0-8.3) 03/02/20 05:43 Absolute Nucleated RBC 0.000 X10*3/uL (0.0-0.012) 03/02/20 05:43 Nucleated RBC % (auto) 0.0 /100WBC (0.0-0.2) 03/02/20 05:43 Smear Tech's Comments VERIFIED 03/02/20 05:43 PT 14.0 SEC (10.8-13.0) H 02/29/20 08:42 INR 1.2 (0.9-1.1) H 02/29/20 08:42 APTT 41.5 SEC (24.1-38.0) H 02/29/20 08:42 Sodium 136 mmol/L (135-145) 03/02/20 05:43 Potassium 3.8 mmol/l (3.3-5.1) 03/02/20 05:43 Chloride 91 mmol/L (96-108) L 03/02/20 05:43 Carbon Dioxide 35 mmol/L (22-29) H 03/02/20 05:43 Anion Gap 14 (12-20) 03/02/20 05:43 BUN 14 mg/dL (9-16) 03/02/20 05:43 Creatinine 0.71 mg/dL (0.5-1.4) 03/02/20 05:43 Estim Creat Clear Calc 171.0 03/02/20 05:43 Estimated GFR > 60 03/02/20 05:43 Random Glucose 124 mg/dL (60-115) H 03/01/20 09:52 Fasting Glucose 105 mg/dL (60-99) H 03/02/20 05:43 Lactic Acid 1.7 mmol/L (0.5-2.0) 02/29/20 08:42 Calcium 7.6 mg/dL (8.4-10.2) L 03/02/20 05:43 Magnesium 1.7 mg/dL (1.6-2.6) 03/01/20 09:52 Total Bilirubin 0.5 mg/dL (0.0-1.0) 02/29/20 08:42 Direct Bilirubin 0.4 mg/dL (0.0-0.5) 02/29/20 08:42 AST 19 U/L (5-37) 02/29/20 08:42 ALT 12 U/L (0-40) 02/29/20 08:42 Alkaline Phosphatase 173 U/L (39-117) H 02/29/20 08:42 Troponin I High Sens < 3.5 ng/L (<3.5-35.0) 02/29/20 08:44 B-Natriuretic Peptide 205 pg/mL (<100) H 02/29/20 08:43 Total Protein 7.1 g/dL (6.5-8.0) 02/29/20 08:42 Albumin 3.1 g/dL (3.5-5.0) L 02/29/20 08:42 Coronavirus (PCR) NEGATIVE (Negative) 02/29/20 12:23 Influenza Type A (PCR) NEGATIVE (Negative) 02/29/20 12:23 Influenza Type B (PCR) NEGATIVE (Negative) 02/29/20 12:23 RSV RNA Qual (PCR) NEGATIVE (Negative) 02/29/20 12:23 Preliminary micro results at discharge 02/29/20 09:04 Blood Culture - Preliminary Blood - Venous No growth after 24 hours. 02/29/20 08:41 Blood Culture - Preliminary Blood - Venous No growth after 24 hours. Discharge Plan Discharge Patient Disposition: Home Health Service Referrals: [facility] [Other] Manan Rocha MD [Physician] - Allen Lyons MD [Primary Care Provider] - Discharge Medications: New cephalexin [Keflex] 500 mg capsule 500 mg PO Q12H Qty: 10 RF: 0 Continued atorvastatin 40 mg Tablet 40 mg PO BEDTIME RF: 0 bumetanide 2 mg Tablet 2 mg PO BID RF: 0 metoprolol succinate 100 mg Tablet Extended Release 24 Hr 100 mg PO BID RF: 0 Xarelto 20 mg Tablet 20 mg PO DAILY RF: 0 Discontinued diltiazem HCl [Diltia XT] 240 mg Capsule,Ext.Rel 24h Degradable 240 mg PO BID RF: 0 Discharge Orders: Discharge Order (Routine); Ordered 03/02/20 Ordered By: Wolf Thomas Diet: regular diet Activity on Discharge: As tolerated Discharge Date/Time: 03/02/20 13:33 Visit Report Forms: Patient Portal Discharge page Care Plan Goals: recovery Health Concerns: venous stasis, etoh dependence Plan of Treatment: stop cardizem, 5 days keflex, follow up wound care, stop etoh
--- NOTE | 2020-03-02 11:13 | P.F2F_ITS ---
Service Date Service Date: 03/02/20 Reasons for Services Homebound: Leaving the home is medically contraindicated at this time without the asist of a device and/or another person due th the listed conditions above and below. he has chronic leg edema and wounds making it difficult for him to ambulate, therefore, he is homebound and needs help with physical therapy and nursing to improve his ambulation Certification: Based on the above findings, I certify that this patient is confined to the home and needs intermittent [facility] care, physical therapy and/or speech therapy, or continues to need occupational therapy. The patient is under my care, and I have initiated the establishment of the plan of care. The patient will be followed by a physician who will periodically review the plan of care.
--- NOTE | 2020-03-02 11:16 | MHC.CM.PN ---
Patient has been medically cleared for dc to home today, with [facility]NA. Patient wanted to try a different VNA, other than [facility].A referral has been made to [facility], who is aware of today's dc.ROSARIO spoke with May from this [facility]NA ([phone]), who explained that they will be able to open this case for the weekend but are unable to confirm his [facility] [place] [facility] insurance because [facility] is closed for the holiday weekend. Should Thursday come and insurance is not verified, [facility] will contact the PCP to secure another VNA for Patient.
[2020-03-02 11:27] VITALS: BP 139/62; PULSE 118; TEMP 35.9; O2SAT 97
--- NOTE | 2020-03-02 13:05 | HO.WOUNDCONS ---
History of Present Illness Data of Consult Service Date: 03/02/20 Requesting physician: Wolf Thomas Primary Care Provider: Allen Lyons MD HPI Reason for consult: chronic stasis wound 60-year-old male who fell on some stairs with scattered traumatic abrasions, consulted for chronic venous stasis the bilateral lower extremities. The patient states that he has not followed by any other wound clinic for his chronic leg disease. He has significant crusting of the legs, long-term in nature. He caries a history of COPD and atrial fibrillation for which he takes blood thinners. [facility] Medical History (Updated 03/02/20 @ 13:10 by FLEX Antoine) Cellulitis COPD (chronic obstructive pulmonary disease) Hypercholesteremia Hyperlipemia Hypertension Social History Household Members: Family Housing: House Alcohol intake: current Alcohol intake frequency: 3 or more drinks per day Smoking Status: Current every day smoker Packs Per Day: 1 Cigarettes Per Day: 20.0 Use of substances other than those prescribed or required for medical reasons: No Currently Displaying Signs/Symptoms of Drug Intoxication Withdrawal: No Have you been hit, kicked, punched, or otherwise hurt by someone within the past year? If so, by whom?: No Do you feel safe in your current relationship?: Yes Is there a partner from a previous relationship who is making you feel unsafe now?: No Are you made to feel afraid or neglected: No Advance Directives: No Advance Directives Information Provided: Yes Do you have thoughts of harming others: None Do you have a plan to hurt others: No Plan Recently lost weight without trying: No service: No Current occupational status: disabled Meds Allergies Allergy/AdvReac Type Severity Reaction Status Date / Time No Known Allergies Allergy Unverified 12/22/19 15:34 [No Known Allergies*] Home Medications Medication Instructions Recorded Confirmed Type Xarelto 20 mg PO DAILY 02/29/20 02/29/20 History atorvastatin 40 mg PO BEDTIME 02/29/20 02/29/20 History bumetanide 2 mg PO BID 02/29/20 02/29/20 History metoprolol succinate 100 mg PO BID 02/29/20 02/29/20 History Physical Exam Vital Signs and Narrative: Vital Signs: Last Vital Signs Temp 96.7 F L 03/02/20 11: Pulse 118 H 03/02/20 11:27 Resp 20 03/02/20 08:00 BP 139/62 03/02/20 11: Pulse Ox 97 03/02/20 11:27 Body Mass Index 46.9 Dressing on the right ear. Bilateral lower extremity edema with adherent yellow eschar and losing. 1+ edema of the feet. Dorsalis pedis and posterior tibial pulses are not easily palpable. There is an open wound at the distal aspect of the left great toe which he reports his traumatic. Results Labs CBC and Chem 7: 03/02/20 05:43 03/02/20 05:43 Labs: Laboratory Results - last 24 hr 03/02/20 03/02/20 05:43 05:43 MCV 95.1 MCH 29.2 MCHC 30.7 L RDW 16.8 H Plt Count 185 MPV 10.1 Immature Gran % (Auto) 0.7 H Neut % (Auto) 69.2 Lymph % (Auto) 12.4 L [place] % (Auto) 16.0 H Eos % (Auto) 1.3 Baso % (Auto) 0.4 Lymph # (Auto) 0.7 L [place] # (Auto) 0.9 Eos # (Auto) 0.1 Baso # (Auto) 0.0 Abs Immat Gran (auto) 0.04 H Absolute Neuts (auto) 3.8 Absolute Nucleated RBC 0.000 Nucleated RBC % (auto) 0.0 Smear Tech's Comments VERIFIED Anion Gap 14 Estim Creat Clear Calc 171.0 Estimated GFR > 60 Fasting Glucose 105 H Calcium 7.6 L Assessment and Plan (1) Acute bilateral venous stasis dermatitis: Start date: 03/02/20 Status: Acute Agree with Keflex as previously prescribed. The patient has contact information for the wound Clinic to arrange a followup appointment. Debridement is likely to be indicated as well as evaluation for long-term compression therapy when antibiotics are complete. Pay attention to left great toe wound to ensure no arterial component delays natural healing. Thank you for the could see this consultation.
== END 2020-03-02 13:33 | disposition home health service (06) | DRG 383 ==
LOC: HO.ED 12:26 → HO.IMC 14:40
PROVIDERS: Admitting Provider Internal Medicine; Emergency Provider Internal Medicine; PCP Internal Medicine; Visit Provider Internal Medicine
DX: L03.115 Cellulitis of right lower limb (principal); I50.23 Acute on chronic systolic (congestive) heart failure; E66.2 Morbid (severe) obesity with alveolar hypoventilation; G62.1 Alcoholic polyneuropathy; I87.333 Chronic venous hypertension (idiopathic) with ulcer and inflammation of bilateral lower extremity; I48.91 Unspecified atrial fibrillation; Z68.42 Body mass index [BMI] 45.0-49.9, adult; I11.0 Hypertensive heart disease with heart failure; Z99.81 Dependence on supplemental oxygen; Z79.01 Long term (current) use of anticoagulants; E78.5 Hyperlipidemia, unspecified; L03.116 Cellulitis of left lower limb; F17.210 Nicotine dependence, cigarettes, uncomplicated; Z71.6 Tobacco abuse counseling; Z20.828 Contact with and (suspected) exposure to other viral communicable diseases; F10.239 Alcohol dependence with withdrawal, unspecified; L97.919 Non-pressure chronic ulcer of unspecified part of right lower leg with unspecified severity; L97.929 Non-pressure chronic ulcer of unspecified part of left lower leg with unspecified severity; Z79.899 Other long term (current) drug therapy
CPT/HCPCS: 0241U; 36415; 70450; 71045; 73620; 80048; 80076; 83605; 83735; 83880; 84484; 85025; 85610; 85730; 87040; 90686; 93005; 96365; 97162; 99284; 99285; J0690; J2543; J2560

== ENCOUNTER 2020-03-18 05:55 | Inpatient (IN) | payer OTHER, SELFPAY ==
[2020-03-18] VITALS (11 sets, daily range): BP systolic 107–182; BP diastolic 59–143; PULSE 119–150; RESP 18–20; O2SAT 95–96; BMI 49.3
--- NOTE | 2020-03-18 07:04 | XR_ITS ---
EXAMINATION: XR CHEST CLINICAL INFORMATION: Rapid atrial fibrillation, fall COMPARISON: 02/29/2020 TECHNIQUE: Frontal view of the chest was obtained. FINDINGS: The enlarged cardiac silhouette is unchanged. There is no overt pulmonary edema. No focal consolidation is seen. No evidence of pneumothorax or significant pleural effusion. Osseous detail is limited. XR/XR chest 1V IMPRESSION: No definite evidence of acute pulmonary disease.
--- NOTE | 2020-03-18 07:05 | ECG_ITS ---
Test Reason : FALL Blood Pressure : / mmHG Vent. Rate : 143 BPM Atrial Rate : 141 BPM P-R Int : 000 ms QRS Dur : 154 ms QT Int : 350 ms P-R-T Axes : 000 069 025 degrees QTc Int : 540 ms Atrial fibrillation with rapid ventricular response Right bundle branch block Nonspecific ST and T wave abnormality Abnormal ECG When compared with ECG of 29-FEB-2020 07:53, Vent. rate has increased BY 79 BPM Referred By: Janet Kaur Electronically Signed By:MORENA VELAZQUEZ
--- NOTE | 2020-03-18 07:12 | ED_ITS ---
HPI - General Adult General Chief complaint: Fall Stated complaint: ETOH USE W/FALL, NO OBV INJURY,SOB ON HOME O2 Time Seen by Provider: 03/18/20 07:04 Source: patient and EMS Mode of arrival: EMS Limitations: altered mental status (Due to alcohol intoxication) History of Present Illness HPI narrative: This is a 60 years old male brought in by EMS after he fell earlier this morning and he was banging on the floor his sister down stairs call 911 who brought him to the hospital, patient is known history of living home alone, alcohol abuse on a daily basis, obesity hypoventilation problem, COPD using home O2, chronic bilateral leg wounds due to venous stasis patient follow- up with wound clinic but he has not seen by the wound clinic for the past 3 weeks. Patient emergency department is awake, alert, very poor historian unable to provide useful history, patient admitted that he last drink was 04:00 o'clock in the morning, remember he fell but nothing hurt him right now, patient appear very unkempt and disheveled. Related Data Home Medications Medication Instructions Recorded Confirmed Xarelto 20 mg PO DAILY 02/29/20 02/29/20 atorvastatin 40 mg PO BEDTIME 02/29/20 02/29/20 bumetanide 2 mg PO BID 02/29/20 02/29/20 metoprolol succinate 100 mg PO BID 02/29/20 02/29/20 Previous Rx's Medication Instructions Recorded cephalexin [Keflex] 500 mg PO Q12H #10 cap 03/02/20 Allergies Allergy/AdvReac Type Severity Reaction Status Date / Time No Known Allergies Allergy Unverified 12/22/19 15:34 [No Known Allergies*] Review of Systems Review of Systems: All other systems are reviewed and are negative Constitutional: Reports as per HPI and Reports no additional constitutional complaints Eyes: Reports as per HPI and Reports no additional eye complaints Reports system reviewed and no additional complaints, except as documented Cardiovascular: Reports as per HPI and Reports no additional cardiovascular complaints Respiratory: Reports as per HPI and Reports no additional respiratory complaints Gastrointestinal: Reports as per HPI and Reports no additional gastrointestinal complaints Genitourinary: Reports no additional female genitourinary complaints Musculoskeletal: Reports no additional musculoskeletal complaints Skin/Breast: Reports system reviewed and no additional complaints, except as docu Psychiatric: Reports no additional psychiatric complaints Endocrine: Reports no additional endocrine complaints Hematologic/Lymphatic: Reports no additional hematologic/lymphatic complaints Allergic/Immunologic: Reports no additional allergic/immunologic complaints Reports system reviewed and no additional complaints, except as documented and Reports Abnormal speech present COUNTS INCLUDE 234 BEDS AT THE [facility] Past Medical History Medical History Afib Cellulitis CHF (congestive heart failure) COPD (chronic obstructive pulmonary disease) Hypercholesteremia Hyperlipemia Hypertension Social History Social History Household Members: Family Housing: House Alcohol intake: current Alcohol intake frequency: 3 or more drinks per day Smoking Status: Current every day smoker Packs Per Day: 1 Cigarettes Per Day: 20.0 Smoked in Last 30 Days: No Use of substances other than those prescribed or required for medical reasons: No Advance Directives: No Advance Directives Information Provided: No service: No Current occupational status: disabled Physical Exam Vital Signs: Vital Signs: Last Vital Signs Pulse 142 H 03/18/20 09:50 Resp 20 03/18/20 06:07 BP 107/59 L 03/18/20 09:50 Pulse Ox 95 03/18/20 06:07 Body Mass Index 49.3 Vital signs have been reviewed as normal and appeared to be correct. Blood pressure normal. Tachycardia (rapid atrial fibrillation). Respiration rate normal. Temperature normal. Oxygen saturation normal. Appearance: Alert. Oriented X3, No acute distress. Unkempt and disheveled. Head: Normal external exam. Normocephalic. Atraumatic. No Rosas signs noted. No raccoon eyes noted Eyes: PERRLA. EOMI. Conjunctiva and sclera normal. Eyelids normal. ENT: Superficial abrasion to the right ear lobule (patient stated it is old injury to his right ear). TM's Normal. Pharynx normal. Uvula midline. Moist muco us membranes. No trismus noted. No drooling noted. No muffled voice noted. Neck: Normal inspection. Neck supple. FROM. No adenopathy. Thyroid Normal. No meningeal signs. No neck mass noted. CVS: Normal heart rate and rhythm. Heart sound normal. No murmurs noted. Pulses normal throughout. Respiratory: No respiratory distress. Painless inspiration. Breath sounds normal. No wheezes/rales/rhonchi noted. Chest nontender. No accessory muscle usage noted or decreased air movement noted. Abdomen: Soft and nontender. Bowel sounds normal in all 4 quadrants. No distention noted. No organomegaly noted. No visible injury noted. Back: No CVA tenderness. Full range of motion noted. Skin: Skin warm and dry. Normal skin color. Normal skin turgor. No rashes/lesions/lacerations noted. Extremities: Bilateral +3 lower extremity edema. With diffuse venous stasis pigmentation so, superficial ulcerations to bilateral lower extremities Extremities exhibit normal range of motion. Extremities nontender. Neuro: Oriented X 3. No motor deficit. No sensory deficit. Reflexes normal. Medical Decision Making MDM Narrative Medical decision making narrative: Assessment and plan. This is a 60-year-old male with multiple medical issues brought in by ambulance after was found on the floor. 1. Rapid AFib with known history of atrial fibrillation however thought based on the clinical exam patient is volume depleted and with mild IV hydration that might correct will keep monitoring heart rate with 1 dose of IV Cardizem and 1 dose of p.o. Cardizem to keep the heart rate low. 2. Fall unclear mechanism of fall but patient was drunk, no sign of head trauma GCS of 15, no sign of other injuries patient moves 4 extremities with no tenderness or deformity is noted on exam. 3. Mild hyperkalemia with no EKG changes will consider 1 dose of oral Kayexalate and repeat chemistry. 4. Chronic lower extremities angioedema and venous stasis mild ulceration with no acute or active cellulitis. 5. Alcohol withdrawal which also may contribute to rapid atrial fibrillation, will start the patient on phenobarb. Lab Data Result diagrams: 03/18/20 07:31 03/18/20 07:31 Labs: Lab Results 03/18/20 03/18/20 03/18/20 Range/Units 07:31 07:31 07:31 WBC 6.0 (4.8-10.8) X10*3/uL RBC 3.78 L (4.60-5.80) X10*6/uL Hgb 11.0 L (14.0-18.0) g/dl Hct 36.7 L (42-52) % MCV 97.1 (80-98) fL MCH 29.1 (27.0-33.0) pg MCHC 30.0 L (31.0-36.0) g/dl RDW 17.6 H (11.0-16.0) % Plt Count 355 D (160-400) X10*3/uL MPV 9.4 (9.4-12.4) fL Immature Gran % (Auto) 0.5 H (0.0-0.4) % Neut % (Auto) 76.8 H (45-73) % Lymph % (Auto) 7.8 L (20-40) % [place] % (Auto) 13.9 H (2-11) % Eos % (Auto) 0.5 (0-4) % Baso % (Auto) 0.5 (0-2) % Lymph # (Auto) 0.5 L (1.2-4.9) X10*3/uL [place] # (Auto) 0.8 (0.1-1.2) X10*3/uL Eos # (Auto) 0.0 (0.0-0.4) X10*3/uL Baso # (Auto) 0.0 (0.0-0.2) X10*3/uL Abs Immat Gran (auto) 0.03 (0.00-0.03) X10*3/uL Absolute Neuts (auto) 4.6 (2.0-8.3) X10*3/uL Absolute Nucleated RBC 0.020 H (0.0-0.012) X10*3/uL Nucleated RBC % (auto) 0.3 H (0.0-0.2) /100WBC Smear Tech's Comments VERIFIED Sodium 139 (135-145) mmol/L Potassium 5.6 H D (3.3-5.1) mmol/l Chloride 95 L (96-108) mmol/L Carbon Dioxide 33 H (22-29) mmol/L Anion Gap 17 (12-20) BUN 11 (9-16) mg/dL Creatinine 0.85 (0.5-1.4) mg/dL Estim Creat Clear Calc 147.0 Estimated GFR > 60 Random Glucose 134 H (60-115) mg/dL Lactic Acid 2.2 H* (0.5-2.0) mmol/L Calcium 7.6 L (8.4-10.2) mg/dL Magnesium 2.0 (1.6-2.6) mg/dL Total Bilirubin 0.5 (0.0-1.0) mg/dL Direct Bilirubin 0.3 (0.0-0.5) mg/dL AST 22 (5-37) U/L ALT 12 (0-40) U/L Alkaline Phosphatase 237 H D (39-117) U/L Total Creatine Kinase 55 (38-174) U/L B-Natriuretic Peptide (<100) pg/mL Total Protein 7.0 (6.5-8.0) g/dL Albumin 2.9 L (3.5-5.0) g/dL Lipase 65 (8-78) U/L Ethyl Alcohol mg/dL COVID-19 (JAYNE) (Negative) COVID-19 Clin Com 03/18/20 03/18/20 03/18/20 Range/Units 07:31 07:31 07:31 WBC (4.8-10.8) X10*3/uL RBC (4.60-5.80) X10*6/uL Hgb (14.0-18.0) g/dl Hct (42-52) % MCV (80-98) fL MCH (27.0-33.0) pg MCHC (31.0-36.0) g/dl RDW (11.0-16.0) % Plt Count (160-400) X10*3/uL MPV (9.4-12.4) fL Immature Gran % (Auto) (0.0-0.4) % Neut % (Auto) (45-73) % Lymph % (Auto) (20-40) % [place] % (Auto) (2-11) % Eos % (Auto) (0-4) % Baso % (Auto) (0-2) % Lymph # (Auto) (1.2-4.9) X10*3/uL [place] # (Auto) (0.1-1.2) X10*3/uL Eos # (Auto) (0.0-0.4) X10*3/uL Baso # (Auto) (0.0-0.2) X10*3/uL Abs Immat Gran (auto) (0.00-0.03) X10*3/uL Absolute Neuts (auto) (2.0-8.3) X10*3/uL Absolute Nucleated RBC (0.0-0.012) X10*3/uL Nucleated RBC % (auto) (0.0-0.2) /100WBC Smear Tech's Comments Sodium (135-145) mmol/L Potassium (3.3-5.1) mmol/l Chloride (96-108) mmol/L Carbon Dioxide (22-29) mmol/L Anion Gap (12-20) BUN (9-16) mg/dL Creatinine (0.5-1.4) mg/dL Estim Creat Clear Calc Estimated GFR Random Glucose (60-115) mg/dL Lactic Acid (0.5-2.0) mmol/L Calcium (8.4-10.2) mg/dL Magnesium (1.6-2.6) mg/dL Total Bilirubin (0.0-1.0) mg/dL Direct Bilirubin (0.0-0.5) mg/dL AST (5-37) U/L ALT (0-40) U/L Alkaline Phosphatase (39-117) U/L Total Creatine Kinase (38-174) U/L B-Natriuretic Peptide 331 H (<100) pg/mL Total Protein (6.5-8.0) g/dL Albumin (3.5-5.0) g/dL Lipase (8-78) U/L Ethyl Alcohol 284 mg/dL COVID-19 (JAYNE) Negative (Negative) COVID-19 Clin Com See Note Imaging Data Chest x-ray: Radiologist's impression: No acute finding. ECG Data Interpretation: Atrial fibrillation with rapid ventricular rate of 143, right bundle-branch block, diffuse flattening T-wave and inverted T-wave in the lateral leads. Critical Care Time Critical Care Time Critical Care Time: Yes Total Critical Care Time: 50 Attestation: I spent 15 minutes at the bedside providing critical level of care to the patient, monitoring and managing patient's heart rate, check labs, check EKG check x-ray. Discharge Plan Discharge Clinical Impression: Acute hyperkalemia, Atrial fibrillation with rapid ventricular response Alcohol withdrawal Qualifiers: Complication of substance-induced condition: uncomplicated Qualified Code(s): F10.230 - Alcohol dependence with withdrawal, uncomplicated Venous stasis dermatitis Qualifiers: Laterality: bilateral Qualified Code(s): I87.2 - Venous insufficiency (chronic) (peripheral) Prescriptions: No Action atorvastatin 40 mg Tablet 40 mg PO BEDTIME RF: 0 bumetanide 2 mg Tablet 2 mg PO BID RF: 0 metoprolol succinate 100 mg Tablet Extended Release 24 Hr 100 mg PO BID RF: 0 Xarelto 20 mg Tablet 20 mg PO DAILY RF: 0 cephalexin [Keflex] 500 mg capsule 500 mg PO Q12H Qty: 10 RF: 0
[2020-03-18 07:45] LABS: Basophils Percent Auto 0.5 % (0-2); Eosinophils Percent Auto 0.5 % (0-4); Hematocrit 36.7 % (42-52); Imm Gran Abs Auto 0.03 X10*3/uL (0.00-0.03); Imm Gran Pct Auto 0.5 % (0.0-0.4); Lymphocytes Absolute Auto 0.5 X10*3/uL (1.2-4.9); Lymphocytes Percent Auto 7.8 % (20-40); MANUAL DIFF FLAG SCAN; Mean Corpuscular Hemoglobin 29.1 pg (27.0-33.0); Mean Platelet Volume 9.4 fL (9.4-12.4); Monocytes Absolute Auto 0.8 X10*3/uL (0.1-1.2); Monocytes Percent Auto 13.9 % (2-11); NRBC Pct Auto 0.3 /100WBC (0.0-0.2); Neutrophils Absolute Auto 4.6 X10*3/uL (2.0-8.3); Neutrophils Percent Auto 76.8 % (45-73); Platelet Count 355 X10*3/uL (160-400); Red Blood Count 3.78 X10*6/uL (4.60-5.80); Red Cell Distribution Width 17.6 % (11.0-16.0); SCAN SMEAR FLAG 1
[2020-03-18 07:55] LABS: Mean Corpuscular Volume 97.1 fL (80-98)
[2020-03-18 08:03] LABS: COVID-19 Test Negative (Negative)
[2020-03-18 08:11] LABS: Ethanol 284 mg/dL
[2020-03-18 08:18] LABS: Alanine Aminotransferase 12 U/L (0-40); Albumin Level 2.9 g/dL (3.5-5.0); Alkaline Phosphatase 237 U/L (39-117); Anion Gap 17 (12-20); Aspartate Amino Transferase 22 U/L (5-37); Bilirubin Direct 0.3 mg/dL (0.0-0.5); Bilirubin Total 0.5 mg/dL (0.0-1.0); Blood Urea Nitrogen 11 mg/dL (9-16); Calcium 7.6 mg/dL (8.4-10.2); Carbon Dioxide 33 mmol/L (22-29); Chloride 95 mmol/L (96-108); Estimated Glomerular Filt Rate > 60; Glucose Random 134 mg/dL (60-115); Lipase 65 U/L (8-78); Potassium 5.6 mmol/l (3.3-5.1); Sodium 139 mmol/L (135-145)
[2020-03-18 08:19] LABS: SLIDE REVIEW VERIFIED
[2020-03-18 08:20] LABS: B Type Natriuretic Peptide 331 pg/mL (<100)
[2020-03-18] MEDS: PHENobarbitaL sodium 130 MG/ML VIAL 248 MG IM (08:37)
[2020-03-18 09:37] LABS: Reflex Lactate? Lactic Acid Added
[2020-03-18] MEDS: dilTIAZem HCL 30 MG TABLET PO (09:49)
[2020-03-18] MEDS: Sodium Polystyrene Sulfon/Sorb 15 GM/60 ML ORAL.SUSP 30 GM PO (09:50)
[2020-03-18] MEDS: dilTIAZem HCL 50 MG/10 ML VIAL 15.52 MG IVPUSH (09:50)
--- NOTE | 2020-03-18 10:57 | PM.IMHP ---
History of Present Illness Date of Service: 03/18/20 Chief Complaint: Fall This is a 60 year old male with multiple medical problems including alcohol dependence who was brought into the emergency department after falling. He was reportedly banging on the floor and his family member who lives downstairs called the ambulance to bring him to the emergency department. His alcohol level was noted to be 284. Lactic acid elevated at 2.2, potassium 5.6. He was afebrile with no leukocytosis. He was noted to be in rapid atrial fibrillation with a heart rate in the 140s given a dose of IV Cardizem but his heart rate continued to be elevated. Review of Systems Review of Systems: Yes all other systems are reviewed and are negative Constitutional: Constitutional: Denies chills and Denies fever(s) Respiratory: Respiratory: Denies cough Gastrointestinal: Gastrointestinal: Denies abdominal pain [facility] Medical History (Updated 03/18/20 @ 12:43 by Chapo Redd MD) Afib Alcohol dependence Cellulitis Chronic respiratory failure with hypoxia COPD (chronic obstructive pulmonary disease) Heart failure with reduced ejection fraction and diastolic dysfunction Hypercholesteremia Hyperlipemia Hypertension Morbid obesity Obesity hypoventilation syndrome Venous stasis dermatitis Pertinent family history: CAD Social History Household Members: Family Housing: House Alcohol intake: current Alcohol intake frequency: 3 or more drinks per day Smoking Status: Current every day smoker Packs Per Day: 1 Cigarettes Per Day: 20.0 Smoked in Last 30 Days: No Use of substances other than those prescribed or required for medical reasons: No Advance Directives: No Advance Directives Information Provided: No service: No Current occupational status: disabled Meds Allergies Allergy/AdvReac Type Severity Reaction Status Date / Time No Known Allergies Allergy Unverified 12/22/19 15:34 [No Known Allergies*] Home Medications Medication Instructions Recorded Confirmed Type Xarelto 20 mg PO DAILY 02/29/20 02/29/20 History bumetanide 2 mg PO BID 03/18/20 03/18/20 History diltiazem HCl [DILT-XR] 240 mg PO BID 03/18/20 03/18/20 History levofloxacin 750 mg PO DAILY 03/18/20 03/18/20 History metoprolol succinate 100 mg PO BID 03/18/20 03/18/20 History Physical Exam Vital Signs and Narrative: Vital Signs: Last Vital Signs Pulse 142 H 03/18/20 09:50 Resp 20 03/18/20 06:07 BP 107/59 L 03/18/20 09:50 Pulse Ox 95 03/18/20 06:07 Body Mass Index 49.3 Const: General: alert and awake Nutritional Appearance: obese Orientation/consciousness: patient oriented x3 HENMT: Head: Yes normocephalic and Yes atraumatic Eyes: Sclerae: sclerae normal Chest: Chest palpation & inspection: normal inspection of the chest Resp: Effort & Inspection: normal respiratory effort and no respiratory distress Cardio: Other: Tachycardic, irregular GI: Palpation (GI): Soft to palpation and nontender Skin: Other: see extremities below Neuro: General: patient oriented x3 Cranial nerves: Yes CN's II-XII intact bilaterally and Yes Bilaterally intact EOM present Extrem: Other: Chronic venous stasis bilaterally thick, scaly skin. Some shallow areas of ulceration. Leg edema bilaterally 3+ Results Labs CBC and Chem 7: 03/18/20 07:31 03/18/20 07:31 Labs: Laboratory Results - last 24 hr 03/18/20 03/18/20 03/18/20 07:31 07:31 07:31 MCV 97.1 MCH 29.1 MCHC 30.0 L RDW 17.6 H Plt Count 355 D MPV 9.4 Immature Gran % (Auto) 0.5 H Neut % (Auto) 76.8 H Lymph % (Auto) 7.8 L [place] % (Auto) 13.9 H Eos % (Auto) 0.5 Baso % (Auto) 0.5 Lymph # (Auto) 0.5 L [place] # (Auto) 0.8 Eos # (Auto) 0.0 Baso # (Auto) 0.0 Abs Immat Gran (auto) 0.03 Absolute Neuts (auto) 4.6 Absolute Nucleated RBC 0.020 H Nucleated RBC % (auto) 0.3 H Smear Tech's Comments VERIFIED Anion Gap 17 Estim Creat Clear Calc 147.0 Estimated GFR > 60 Random Glucose 134 H Lactic Acid 2.2 H* Calcium 7.6 L Magnesium 2.0 Total Bilirubin 0.5 Direct Bilirubin 0.3 AST 22 ALT 12 Alkaline Phosphatase 237 H D Total Creatine Kinase 55 B-Natriuretic Peptide Total Protein 7.0 Albumin 2.9 L Lipase 65 Ethyl Alcohol COVID-19 ([facility]AYNE) COVID-19 Clin Com 03/18/20 03/18/20 03/18/20 07:31 07:31 07:31 MCV MCH MCHC RDW Plt Count MPV Immature Gran % (Auto) Neut % (Auto) Lymph % (Auto) [place] % (Auto) Eos % (Auto) Baso % (Auto) Lymph # (Auto) [place] # (Auto) Eos # (Auto) Baso # (Auto) Abs Immat Gran (auto) Absolute Neuts (auto) Absolute Nucleated RBC Nucleated RBC % (auto) Smear Tech's Comments Anion Gap Estim Creat Clear Calc Estimated GFR Random Glucose Lactic Acid Calcium Magnesium Total Bilirubin Direct Bilirubin AST ALT Alkaline Phosphatase Total Creatine Kinase B-Natriuretic Peptide 331 H Total Protein Albumin Lipase Ethyl Alcohol 284 COVID-19 (JAYNE) Negative COVID-19 Clin Com See Note Imaging Radiologist's Impressions: Impressions Chest X-Ray 03/18/20 07:04 IMPRESSION: No definite evidence of acute pulmonary disease. Assessment and Plan (1) Chronic venous stasis: Status: Acute (2) Atrial fibrillation: Status: Acute (3) Acute bilateral venous stasis dermatitis: Status: Acute (4) Acute hyperkalemia: Status: Acute This is a 60-year-old male with history of alcohol dependence, atrial fibrillation, heart failure, COPD, chronic venous stasis, hypertension, dyslipidemia noncompliance who presents to the emergency department after fall found to be in rapid atrial fibrillation Atrial fibrillation with rapid ventricular response -start Cardizem drip -continue January if blood pressure allows -unclear patient has been compliant with Xarelto -cardiology consult Fall -may need PT evaluation prior to discharge Chronic venous stasis, bilateral legs Component of superimposed cellulitis -IV Ancef -wound care Alcohol dependence Alcohol level 284 on arrival. Still displaying signs of alcohol withdrawal and therefore started on phenobarbital in the ED -supplementation with thiamine, folic acid -care team prior to discharge Prolonged QTC ?Has been on levofloxacin as outpatient -Mag 2.0 -tele monitoring -repeat EKG in a.m. Hyperkalemia. K 5.6 Received Kayexalate in the ED -follow BMP Heart failure Overall somewhat fluid overloaded although no respiratory symptoms Blood pressure soft. Continue home Bumex for now Follow fluid status closely Tobacco dependence Smoking cessation advised -NRT Obstructive sleep apnea Unable to tolerate CPAP Elevated lactic acid No evidence of sepsis Likely related to demand from AFib/low blood pressure -trend Morbid obesity. BMI 49 Weight loss encouraged This case was discussed with Dr. Thomas
[2020-03-18] MEDS: dilTIAZem HCL 125 MG in 0.9 % Sodium Chloride 100 ML IVCONT (11:17)
[2020-03-18] MEDS: Nicotine 14 MG PATCH.TD24 TRANSDERMA (11:18)
[2020-03-18] MEDS: PHENobarbitaL sodium 130 MG/ML VIAL 186 MG IM ×2 (11:18→15:05)
[2020-03-18 11:32] LABS: Troponin-I High Sensitivity < 3.5 ng/L (<3.5-35.0)
[2020-03-18 11:42] LABS: ~Lactic Acid-LAB USE ONLY 2.1 mmol/L (0.5-2.0)
--- NOTE | 2020-03-18 11:44 | PM.EVENT ---
Event Note Date of Service: 03/18/20 Event Note: Patient seen and examined independently and was present during canales portion of E/M service. Agree with midlevel's history, physical, assessment, and plan. 60M presented with fall, afib, etoh withdrawl cardizem, cardio phenobarb
--- NOTE | 2020-03-18 12:21 | PC.NURSE ---
lab called results for pts lactic from 729 2.3
[2020-03-18 12:23] LABS: Lactic Acid 2.2 mmol/L (0.5-2.0)
--- NOTE | 2020-03-18 12:38 | PM.CNCAR ---
History of Present Illness History of Present Illness Date of Service: 03/18/20 Chief complaint: ETOH USE W/FALL, NO OBV INJURY,SOB ON HOME O2 Narrative: This is a cardiology consultation regarding atrial fibrillation. This is a 60-year-old gentleman well known to us. He has a history of alcohol issues as well as atrial fibrillation. This time it appears that he had a fall again in the setting of alcohol abuse. He was found on the floor and then a family member who live downstairs that called the ambulance to bring him to the ER. His alcohol levels were elevated. He was also in atrial fibrillation rapid rate. He was put on Cardizem drip. We were asked seen in consultation. Patient himself is not offering any specific complaints at this time. He is somewhat sleepy. Review of Systems Review of Systems: Yes Unobtainable due to mental condition Cardiovascular: Cardiovascular: Reports as per [facility] Past Medical History Medical History (Updated 03/18/20 @ 12:43 by Chapo Redd MD) Afib Alcohol dependence Cellulitis Chronic respiratory failure with hypoxia COPD (chronic obstructive pulmonary disease) Heart failure with reduced ejection fraction and diastolic dysfunction Hypercholesteremia Hyperlipemia Hypertension Morbid obesity Obesity hypoventilation syndrome Venous stasis dermatitis Family History Pertinent family history: Unable to obtain family history from patient. Social History Social History Household Members: Family Housing: House Alcohol intake: current Alcohol intake frequency: 3 or more drinks per day Smoking Status: Current every day smoker Packs Per Day: 1 Cigarettes Per Day: 20.0 Smoked in Last 30 Days: No Use of substances other than those prescribed or required for medical reasons: No Advance Directives: No Advance Directives Information Provided: No service: No Current occupational status: disabled Meds Allergies Allergy/AdvReac Type Severity Reaction Status Date / Time No Known Allergies Allergy Unverified 12/22/19 15:34 [No Known Allergies*] Home Medications Medication Instructions Recorded Confirmed Type Xarelto 20 mg PO DAILY 02/29/20 02/29/20 History bumetanide 2 mg PO BID 03/18/20 03/18/20 History diltiazem HCl [DILT-XR] 240 mg PO BID 03/18/20 03/18/20 History levofloxacin 750 mg PO DAILY 03/18/20 03/18/20 History metoprolol succinate 100 mg PO BID 03/18/20 03/18/20 History Physical Exam Vital Signs: Vital Signs: Last Vital Signs Pulse 130 H 03/18/20 12:05 Resp 20 03/18/20 12:05 BP 110/77 03/18/20 12:05 Pulse Ox 95 03/18/20 11:32 Body Mass Index 49.3 Const: General: comfortable and no acute distress HENMT: Other: Unremarkable Neck: Neck: Yes normal visual inspection Chest: Chest palpation & inspection: normal inspection of the chest Resp: Auscultation: no crackles and rhonchi Cardio: Jugular venous distension: no JVD Palpation: normal PMI Heart sounds: S1 normal heart sound present, S2 normal heart sound present, no gallops, no murmurs and no rubs GI: Palpation (GI): Soft to palpation Back/Spine/Pelvis: Other: unremarkable Skin: General skin exam: no rashes or lesions noted Extrem: Other: chronic changes, edema in both lower extremities. Psych: Mental Status: mental status grossly normal Results Labs and Meds Result diagrams: 03/18/20 07:31 03/18/20 07:31 Lab results: Laboratory Results - last 24 hr 03/18/20 03/18/20 03/18/20 07:31 07:31 07:31 WBC 6.0 RBC 3.78 L Hgb 11.0 L Hct 36.7 L MCV 97.1 MCH 29.1 MCHC 30.0 L RDW 17.6 H Plt Count 355 D MPV 9.4 Immature Gran % (Auto) 0.5 H Neut % (Auto) 76.8 H Lymph % (Auto) 7.8 L [place] % (Auto) 13.9 H Eos % (Auto) 0.5 Baso % (Auto) 0.5 Lymph # (Auto) 0.5 L [place] # (Auto) 0.8 Eos # (Auto) 0.0 Baso # (Auto) 0.0 Abs Immat Gran (auto) 0.03 Absolute Neuts (auto) 4.6 Absolute Nucleated RBC 0.020 H Nucleated RBC % (auto) 0.3 H Smear Tech's Comments VERIFIED Sodium 139 Potassium 5.6 H D Chloride 95 L Carbon Dioxide 33 H Anion Gap 17 BUN 11 Creatinine 0.85 Estim Creat Clear Calc 147.0 Estimated GFR > 60 Random Glucose 134 H Lactic Acid 2.2 H* Lactic Acid Fup @ 2Hr Calcium 7.6 L Magnesium 2.0 Total Bilirubin 0.5 Direct Bilirubin 0.3 AST 22 ALT 12 Alkaline Phosphatase 237 H D Total Creatine Kinase 55 Troponin I High Sens B-Natriuretic Peptide Total Protein 7.0 Albumin 2.9 L Lipase 65 Ethyl Alcohol COVID-19 (JAYNE) COVID-19 Cojoin 03/18/20 03/18/20 03/18/20 07:31 07:31 07:31 WBC RBC Hgb Hct MCV MCH MCHC RDW Plt Count MPV Immature Gran % (Auto) Neut % (Auto) Lymph % (Auto) [place] % (Auto) Eos % (Auto) Baso % (Auto) Lymph # (Auto) [place] # (Auto) Eos # (Auto) Baso # (Auto) Abs Immat Gran (auto) Absolute Neuts (auto) Absolute Nucleated RBC Nucleated RBC % (auto) Smear Tech's Comments Sodium Potassium Chloride Carbon Dioxide Anion Gap BUN Creatinine Estim Creat Clear Calc Estimated GFR Random Glucose Lactic Acid Lactic Acid Fup @ 2Hr Calcium Magnesium Total Bilirubin Direct Bilirubin AST ALT Alkaline Phosphatase Total Creatine Kinase Troponin I High Sens B-Natriuretic Peptide 331 H Total Protein Albumin Lipase Ethyl Alcohol 284 COVID-19 (JAYNE) Negative COVIDCelaton See Note 03/18/20 03/18/20 10:41 10:41 WBC RBC Hgb Hct MCV MCH MCHC RDW Plt Count MPV Immature Gran % (Auto) Neut % (Auto) Lymph % (Auto) [place] % (Auto) Eos % (Auto) Baso % (Auto) Lymph # (Auto) [place] # (Auto) Eos # (Auto) Baso # (Auto) Abs Immat Gran (auto) Absolute Neuts (auto) Absolute Nucleated RBC Nucleated RBC % (auto) Smear Tech's Comments Sodium Potassium Chloride Carbon Dioxide Anion Gap BUN Creatinine Estim Creat Clear Calc Estimated GFR Random Glucose Lactic Acid Lactic Acid Fup @ 2Hr 2.1 H* Calcium Magnesium Total Bilirubin Direct Bilirubin AST ALT Alkaline Phosphatase Total Creatine Kinase Troponin I High Sens < 3.5 B-Natriuretic Peptide Total Protein Albumin Lipase Ethyl Alcohol COVID-19 (JAYNE) COVID-19 Cojoin Assessment and Plan (1) Atrial fibrillation with rapid ventricular response: Status: Acute (2) Alcohol withdrawal: Qualifiers: Complication of substance-induced condition: uncomplicated Qualified Code(s): F10.230 - Alcohol dependence with withdrawal, uncomplicated Status: Acute (3) Fall: Qualifiers: Encounter type: initial encounter Qualified Code(s): W19.XXXA - Unspecified fall, initial encounter Status: Acute (4) Chronic venous stasis: Status: Acute (5) Acute hyperkalemia: Status: Acute (6) COPD (chronic obstructive pulmonary disease): Qualifiers: COPD type: unspecified COPD Qualified Code(s): J44.9 - Chronic obstructive pulmonary disease, unspecified Status: Acute EKG shows atrial fibrillation with rapid rate at 143/Min with right bundle-branch block pattern. In the last echocardiogram from April of this year, LVEF is mildly reduced; right ventricle was dilated with [id number] dysfunction. There was also moderate pulmonary hypertension. Medications listed as diltiazem ER 240 mg ?bid and metoprolol but unclear compliance. For now keep him on Cardizem drip. He is on Xarelto at home but we need to decide on risk benefit of continuing anticoagulation considering his continued alcohol abuse. Will follow in the hospital.
[2020-03-18 12:47] LABS: Reflex Lactate? 2 Y
--- NOTE | 2020-03-18 16:10 | PC.NURSE ---
pt continues to be non redirectable. will not keep o2 on or keep arm straight for ivf infusing.
[2020-03-18 16:30] LABS: Anion Gap 16 (12-20); Blood Urea Nitrogen 11 mg/dL (9-16); Calcium 7.2 mg/dL (8.4-10.2); Carbon Dioxide 34 mmol/L (22-29); Chloride 93 mmol/L (96-108); Creatinine Clr Calc Pharmacy 156.2; Estimated Glomerular Filt Rate > 60; Glucose Random 117 mg/dL (60-115); Potassium 4.5 mmol/l (3.3-5.1); Sodium 138 mmol/L (135-145)
--- NOTE | 2020-03-18 19:02 | PC.NURSE ---
awaiting admission. pt remains ill kept not interested in assisting in patient care. pt doesnt want to move until he gets to the floor. continues to not assist in keeping on o2.
[2020-03-18] MEDS: Metoprolol Succinate ER 100 MG TAB.ER.24H PO (20:57)
--- NOTE | 2020-03-18 21:00 | PC.NURSE ---
confirmed with md hawkins that it was safe to administer metoprolol po, while pt currently on cardizen infususion.
[2020-03-18] MEDS: Acetaminophen 325 MG TABLET 650 MG PO (21:20)
[2020-03-18] MEDS: Bumetanide 1 MG TABLET 2 MG PO (21:20)
--- NOTE | 2020-03-18 22:47 | PC.NURSE ---
pt able to transfer to recliner on his own, requested recliner several times. hospitalist called to ask permission to continue argenis flanagan.
--- NOTE | 2020-03-18 23:11 | PC.NURSE ---
pt reports feeling short of breath, pt also unable to void in urinal.
--- NOTE | 2020-03-18 23:23 | PC.NURSE ---
CARDIZEM DRIP STARTED INFUSION AGAIN, NEW BAG STARTED.
[2020-03-18] MEDS: dilTIAZem HCL 125 MG in 0.9 % Sodium Chloride 100 ML 15 MG IVCONT (23:24)
[2020-03-18 23:51] LABS: Glucose Urine UA NEG (NEG); Leukocyte Esterase Urine NEG (NEG); Nitrite Urine NEG (NEG); Specific Gravity - Urine >= 1.030 (1.005-1.025); Urine Blood NEG (NEG); Urine Ketones NEG (NEG); Urine Protein TRACE MG/DL (NEG-TRACE)
[2020-03-18 23:52] LABS: Appearance Urine CLEAR; Color Urine YELLOW
[2020-03-19] VITALS (10 sets, daily range): BP systolic 111–145; BP diastolic 75–90; PULSE 82–134; RESP 18–26; TEMP 36.3–36.8; O2SAT 94–97; BMI 49.3
[2020-03-19 01:31] LABS: HCO3 VBG 32 mmol/L; Oxygen Saturation VBG 88.5 %; PCO2 VBG 50 mmhg; PO2 VBG 59 mmhg; pH VBG 7.42 (7.32-7.43)
--- NOTE | 2020-03-19 01:35 | PC.NURSE ---
pt in no distress, even with spo2 of mid 80's. pt recovers back to low-mid 90's. pt wants to stay seated in recliner, offered to assist him back in bed. pt placed on nasal capnography for reading, ETCO2 of 48.
[2020-03-19] MEDS: Acetaminophen 325 MG TABLET 650 MG PO ×3 (05:12→18:05)
--- NOTE | 2020-03-19 05:19 | PC.NURSE ---
pt still insisting on sitting in recliner, no interest in getting back in bed to elevate lags. the only asset protection specialist left in ER is older and doesn't elevate legs uless head is back at the same time. pt unable to fall asleep. requested tylenol, which helped with his leg discomfort.
[2020-03-19 07:15] LABS: Basophils Percent Auto 0.6 % (0-2); Eosinophils Absolute Auto 0.1 X10*3/uL (0.0-0.4); Eosinophils Percent Auto 1.9 % (0-4); Hematocrit 32.5 % (42-52); Imm Gran Abs Auto 0.03 X10*3/uL (0.00-0.03); Imm Gran Pct Auto 0.5 % (0.0-0.4); Lymphocytes Absolute Auto 0.6 X10*3/uL (1.2-4.9); Lymphocytes Percent Auto 9.3 % (20-40); MANUAL DIFF FLAG SCAN; Mean Corpuscular HGB Conc 30.8 g/dl (31.0-36.0); Mean Corpuscular Hemoglobin 28.7 pg (27.0-33.0); Mean Corpuscular Volume 93.1 fL (80-98); Mean Platelet Volume 9.5 fL (9.4-12.4); Monocytes Absolute Auto 0.9 X10*3/uL (0.1-1.2); Monocytes Percent Auto 14.6 % (2-11); Neutrophils Absolute Auto 4.6 X10*3/uL (2.0-8.3); Neutrophils Percent Auto 73.1 % (45-73); Platelet Count 272 X10*3/uL (160-400); Red Blood Count 3.49 X10*6/uL (4.60-5.80); Red Cell Distribution Width 17.3 % (11.0-16.0); SCAN SMEAR FLAG 1; White Blood Count 6.2 X10*3/uL (4.8-10.8)
[2020-03-19 07:18] LABS: Anion Gap 15 (12-20); Blood Urea Nitrogen 10 mg/dL (9-16); Calcium 7.4 mg/dL (8.4-10.2); Carbon Dioxide 33 mmol/L (22-29); Chloride 92 mmol/L (96-108); Creatinine Clr Calc Pharmacy 186.6; Estimated Glomerular Filt Rate > 60; Glucose Random 110 mg/dL (60-115); Magnesium 1.6 mg/dL (1.6-2.6); Potassium 3.7 mmol/l (3.3-5.1); Sodium 136 mmol/L (135-145)
[2020-03-19 07:25] LABS: B Type Natriuretic Peptide 259 pg/mL (<100)
[2020-03-19] MEDS: dilTIAZem HCL 125 MG in 0.9 % Sodium Chloride 100 ML 15 MG IVCONT ×2 (07:31→15:08)
--- NOTE | 2020-03-19 07:32 | PC.NURSE ---
Report given to [facility] [place]
[2020-03-19 08:14] LABS: SLIDE REVIEW VERIFIED
[2020-03-19] MEDS: Nicotine 14 MG PATCH.TD24 TRANSDERMA (08:36)
[2020-03-19] MEDS: 0.9 % Sodium Chloride Flush 3 ML SYRINGE IVFLUSH ×2 (08:36→23:50)
[2020-03-19] MEDS: PHENobarbitaL 30 MG TABLET 60 MG PO ×2 (08:37→23:37)
[2020-03-19] MEDS: Folic Acid 1 MG TABLET PO (08:37)
[2020-03-19] MEDS: Thiamine HCL 100 MG TABLET PO (08:37)
[2020-03-19] MEDS: Bumetanide 1 MG TABLET 2 MG PO (08:37)
[2020-03-19] MEDS: Metoprolol Succinate ER 100 MG TAB.ER.24H PO (08:37)
--- NOTE | 2020-03-19 10:17 | MHC.CM.PN ---
MALE 60 DX AFIB RVR ETOH WITHDRAWAL ANDREINA LE WOUNDS. He lives alone on 2nd floor of 2 family home. His sister lives on the 1st fl. He private pays for [employer] and home making assistance. He requires assist with ADLs. He uses a walker for ambulation. He was most recently active with [facility]. He has also been a patient of [facility] in the past. DP home with [facility] and private pay [employer]. Family will provide transportation. CM will follow.
--- NOTE | 2020-03-19 10:46 | P.PNIM_ITS ---
Subjective Subjective Date of Service: 03/19/20 Interval History: sob Cardiovascular Cardiovascular: Reports no additional cardiovascular complaints Gastrointestinal Gastrointestinal: Reports no additional gastrointestinal complaints Physical Exam Vital Signs: Vital Signs: Last Vital Signs Temp 97.4 F 03/19/20 08:00 Pulse 130 H 03/19/20 09:18 Resp 20 03/19/20 08:00 BP 121/84 03/19/20 09:18 Pulse Ox 97 03/19/20 08:00 Body Mass Index 49.3 General: AO X 3, no acute distress Resp: CTA bilateral CVS: S1,S2 rapid irregular GI: soft, non tender, non distended Neuro: motor grossly intact Psych: appropriate affect skin: chronic venous stasis Objective Data Current Medications Generic Name Dose Route Start Last Admin Trade Name Freq PRN Reason Stop Dose Admin Acetaminophen 650 mg 03/18/20 13:23 03/19/20 05:12 Acetaminophen 325 Mg Tablet PO 650 mg Q6H PRN Administration Pain, Mild (Pain Scale 1-3) Albuterol/Ipratropium 3 ml 03/19/20 09:48 Albuterol/Iprat 2.5/0.5mg 3 Ml Ampul.Neb INHALE RQ4H PRN sob Atorvastatin Calcium 40 mg 03/20/20 09:00 Atorvastatin Calcium 40 Mg Tablet PO DAILY BECK Bumetanide 2 mg 03/18/20 21:00 03/19/20 08:37 Bumetanide 1 Mg Tablet PO 2 mg BID BECK Administration Docusate Sodium 100 mg 03/18/20 13:23 Docusate Sodium 100 Mg Capsule PO DAILY PRN Constipation Folic Acid 1 mg 03/19/20 09:00 03/19/20 08:37 Folic Acid 1 Mg Tablet PO 1 mg DAILY BECK Administration Diltiazem HCl 125 mg/ Sodium 125 mls @ 5 mls/hr 03/18/20 10:33 03/19/20 09:35 Chloride IVCONT Not Given .Q24H BECK Protocol 5 MG/HR Cefazolin Sodium 2 gm/ Sodium 50 mls @ 100 mls/hr 03/18/20 10:45 03/19/20 05:22 Chloride IV Infused Q8H BECK Infusion Medication 1 each 03/18/20 09:00 No Benzodiazepines MISCELLANE DAILY BECK Metoprolol Succinate 100 mg 03/18/20 21:00 03/19/20 08:37 Metoprolol Succinate Er 100 Mg Tab.Er.24h PO 100 mg BID BECK Administration Protocol Nicotine 14 mg 03/18/20 10:45 03/19/20 08:36 Nicotine 14 Mg Patch.Td24 TRANSDERMA 14 mg DAILY BECK Administration Phenobarbital 60 mg 03/19/20 09:00 03/19/20 08:37 Phenobarbital 30 Mg Tablet PO 03/20/20 21:01 60 mg BID BECK Administration Phenobarbital 30 mg 03/21/20 09:00 Phenobarbital 30 Mg Tablet PO 03/22/20 21:01 BID BECK Phenobarbital 30 mg 03/23/20 09:00 Phenobarbital 30 Mg Tablet PO 03/24/20 09:01 DAILY BECK Sodium Chloride 3 ml 03/18/20 16:00 03/19/20 08:36 0.9 % Sodium Chloride Flush 3 Ml Syringe IVFLUSH 3 ml QSHIFT [facility] Administration Thiamine HCl 100 mg 03/19/20 09:00 03/19/20 08:37 Thiamine Hcl 100 Mg Tablet PO 100 mg DAILY BECK Administration Labs CBC & Chem 7: 03/19/20 06:50 03/19/20 06:50 Microbiology Microbiology Results: Microbiology 03/18/20 07:43 Blood - Venous Blood Culture - Preliminary No growth after 24 hours. 03/18/20 07:31 Blood - Venous Blood Culture - Preliminary No growth after 24 hours. Assessment and Plan (1) Chronic venous stasis: Status: Acute (2) Atrial fibrillation: Status: Acute (3) Acute bilateral venous stasis dermatitis: Status: Acute (4) Acute hyperkalemia: Status: Acute Assessment and Plan: 60-year-old male with history of alcohol dependence, atrial fibrillation, heart failure, COPD, chronic venous stasis, hypertension, dyslipidemia noncompliance who presented to the emergency department after fall found to be in rapid atrial fibrillation Atrial fibrillation with rapid ventricular response Cardizem masha Xarelto cardiology following PT Chronic venous stasis, bilateral legs Component of superimposed cellulitis -IV Ancef -wound care Alcohol dependence Alcohol level 284 on arrival. Still displaying signs of alcohol withdrawal and therefore started on phenobarbital in the ED -supplementation with thiamine, folic acid -care team prior to discharge Heart failure with reduced ef and right sided dysfunction with pulm htn Overall somewhat fluid overloaded although no respiratory symptoms Blood pressure soft. Continue home Bumex for now Follow fluid status closely Tobacco dependence Smoking cessation advised -NRT Obstructive sleep apnea Unable to tolerate CPAP Elevated lactic acid No evidence of sepsis Likely related to demand from AFib/low blood pressure -trend Morbid obesity. BMI 49 Weight loss encouraged
[2020-03-19] MEDS: ceFAZolin Sodium/Dextrose,Iso 2 GM/50 ML PIGGYBACK IV ×2 (11:09→18:00)
--- NOTE | 2020-03-19 11:14 | P.CONIM_ITS ---
History of Present Illness Data of Consult Service Date: 03/19/20 Requesting physician: Wolf Thomas Primary Care Provider: Allen Lyons MD HPI Reason for consult: leg wounds 60-year-old male known to the wound clinic, seen in May of 2019 but relatively noncompliant as he was seen for initial consultation only. Scheduled followup some is or not attended. This patient was hospitalized on the date of admission for alcohol withdrawal in the setting of hypertension, COPD and atrial fibrillation. He has long-standing bilateral lower extremity lymphedema with drainage and crusting without compliant venous compression management. Also noteworthy, a right lateral thigh wound which the patient relates to trauma. A small abrasion about the right trapezius area at the cervicothoracic is reported. [facility] Medical History (Updated 03/19/20 @ 11:43 by FLEX Antoine) Afib Alcohol dependence Cellulitis Chronic respiratory failure with hypoxia COPD (chronic obstructive pulmonary disease) Heart failure with reduced ejection fraction and diastolic dysfunction Hypercholesteremia Hyperlipemia Hypertension Morbid obesity Obesity hypoventilation syndrome Venous stasis dermatitis Social History Household Members: None Housing: Apartment Do you presently have visiting nurse or other home services: No Alcohol intake: current Alcohol intake frequency: 3 or more drinks per day Smoking Status: Current every day smoker Tobacco Type: Cigarette Packs Per Day: 1 Cigarettes Per Day: 20.0 Years Smoked: 40 Smoked in Last 30 Days: Yes Use of substances other than those prescribed or required for medical reasons: No Have you been hit, kicked, punched, or otherwise hurt by someone within the past year? If so, by whom?: No Do you feel safe in your current relationship?: No Current Relationship Is there a partner from a previous relationship who is making you feel unsafe now?: No Are you made to feel afraid or neglected: No Advance Directives: No Advance Directives Information Provided: No Do you have thoughts of harming others: None Do you have a plan to hurt others: No Plan Recently lost weight without trying: No service: No Current occupational status: disabled Meds Allergies Allergy/AdvReac Type Severity Reaction Status Date / Time No Known Allergies Allergy Unverified 12/22/19 15:34 [No Known Allergies*] Home Medications Medication Instructions Recorded Confirmed Type Xarelto 20 mg PO DAILY 02/29/20 02/29/20 History bumetanide 2 mg PO BID 03/18/20 03/18/20 History diltiazem HCl [DILT-XR] 240 mg PO BID 03/18/20 03/18/20 History levofloxacin 750 mg PO DAILY 03/18/20 03/18/20 History metoprolol succinate 100 mg PO BID 03/18/20 03/18/20 History atorvastatin 40 mg PO DAILY 03/19/20 03/19/20 History Physical Exam Vital Signs and Narrative: Vital Signs: Last Vital Signs Temp 97.4 F 03/19/20 08:00 Pulse 130 H 03/19/20 09:18 Resp 20 03/19/20 08:00 BP 121/84 03/19/20 09:18 Pulse Ox 97 03/19/20 08:00 Body Mass Index 49.3 Body habitus is morbidly obese. Vital signs are stable. The right cervicothoracic abrasion about trapezius region is superficial in nature. No evidence of infection. The right lateral thigh wound does not look like an acute laceration or an abrasion but rather a long-standing wound from a nontraumatic cause. It measures approximately 6 cm in length and 4 cm in with with darkened eschar at the base. There is no periwound erythema or edema. There is no streaking or warmth about the lateral thigh wound. The bilateral lower extremities are extremely edematous with weeping. There is maceration of the posterior calves due to excessive nonpurulent drainage. The anterior lower extremities have significant crusting associated with lymphatic drainage and poorly controlled venous disease. Punctate open wounds are difficult to discern due to over covering debris though bilateral uniformity without odor, warmth or appreciable purulence suggests that infection is not present in the lower extremities. Dorsalis pedis and posterior tibial pulses are not well palpable bilaterally. There is 2+ edema of the feet, pitting in nature. Results Labs CBC and Chem 7: 03/19/20 06:50 03/19/20 06:50 Labs: Laboratory Results - last 24 hr 03/18/20 03/18/20 03/18/20 07:31 10:41 10:41 MCV MCH MCHC RDW Plt Count MPV Immature Gran % (Auto) Neut % (Auto) Lymph % (Auto) [place] % (Auto) Eos % (Auto) Baso % (Auto) Lymph # (Auto) [place] # (Auto) Eos # (Auto) Baso # (Auto) Abs Immat Gran (auto) Absolute Neuts (auto) Absolute Nucleated RBC Nucleated RBC % (auto) Smear Tech's Comments VBG pH VBG pCO2 VBG pO2 VBG HCO3 VBG O2 Saturation VBG Base Excess Anion Gap Estim Creat Clear Calc Estimated GFR Random Glucose Lactic Acid 2.2 H* Lactic Acid Fup @ 2Hr 2.1 H* Calcium Magnesium Troponin I High Sens < 3.5 B-Natriuretic Peptide Urine Color Urine Appearance Urine pH Ur Specific [place] Urine Protein Urine Glucose (UA) Urine Ketones Urine Blood Urine Nitrite Ur Leukocyte Esterase 03/18/20 03/18/20 03/19/20 16:05 23:43 01:25 MCV MCH MCHC RDW Plt Count MPV Immature Gran % (Auto) Neut % (Auto) Lymph % (Auto) [place] % (Auto) Eos % (Auto) Baso % (Auto) Lymph # (Auto) [place] # (Auto) Eos # (Auto) Baso # (Auto) Abs Immat Gran (auto) Absolute Neuts (auto) Absolute Nucleated RBC Nucleated RBC % (auto) Smear Tech's Comments VBG pH 7.42 VBG pCO2 50 VBG pO2 59 VBG HCO3 32 VBG O2 Saturation 88.5 VBG Base Excess 6.0 Anion Gap 16 Estim Creat Clear Calc 156.2 Estimated GFR > 60 Random Glucose 117 H Lactic Acid Lactic Acid Fup @ 2Hr Calcium 7.2 L Magnesium Troponin I High Sens B-Natriuretic Peptide Urine Color YELLOW Urine Appearance CLEAR Urine pH 6.0 Ur Specific [place] >= 1.030 H Urine Protein TRACE Urine Glucose (UA) NEG Urine Ketones NEG Urine Blood NEG Urine Nitrite NEG Ur Leukocyte Esterase NEG 03/19/20 03/19/20 03/19/20 06:50 06:50 06:50 MCV 93.1 MCH 28.7 MCHC 30.8 L RDW 17.3 H Plt Count 272 MPV 9.5 Immature Gran % (Auto) 0.5 H Neut % (Auto) 73.1 H Lymph % (Auto) 9.3 L [place] % (Auto) 14.6 H Eos % (Auto) 1.9 Baso % (Auto) 0.6 Lymph # (Auto) 0.6 L [place] # (Auto) 0.9 Eos # (Auto) 0.1 Baso # (Auto) 0.0 Abs Immat Gran (auto) 0.03 Absolute Neuts (auto) 4.6 Absolute Nucleated RBC 0.000 Nucleated RBC % (auto) 0.0 Smear Tech's Comments VERIFIED VBG pH VBG pCO2 VBG pO2 VBG HCO3 VBG O2 Saturation VBG Base Excess Anion Gap 15 Estim Creat Clear Calc 186.6 Estimated GFR > 60 Random Glucose 110 Lactic Acid Lactic Acid Fup @ 2Hr Calcium 7.4 L Magnesium 1.6 Troponin I High Sens B-Natriuretic Peptide 259 H Urine Color Urine Appearance Urine pH Ur Specific [place] Urine Protein Urine Glucose (UA) Urine Ketones Urine Blood Urine Nitrite Ur Leukocyte Esterase Assessment and Plan (1) Lymphedema, not elsewhere classified: Start date: 03/19/20 Problem details: leg wounds Status: Acute Further evaluation of the right lateral thigh Rue wound is recommended. While the patient is hospitalized, and operative debridement of the right lateral thigh might be indicated as complains in the past in the wound clinic has been poor. In the meantime, try it green to this wound in the bilateral lower extremities can help with debris management. The down side of this recommendation is, however, that increased drainage may precipitate worsening maceration and therefore an x-ray absorbent dressing particularly about the posterior calf is necessary. Sheets of alginate with her without silver would need to be changed q.12 hours. He is not a candidate for aggressive compression in the setting of lymphatic in venous drainage because of lack of quantify oval arterial insufficiency. Obviously a referral back to the wound care clinic is in the best interest of the patient with encouraging words to promote compliance. There is deep concern for infection in the setting of poorly managed lymphedema. Management of his acute medical issues takes precedence, but please consider surgical consult while hospitalized regarding right chronic lateral leg wound.
[2020-03-19] MEDS: PHENobarbitaL sodium 130 MG/ML VIAL 160 MG IM (11:20)
--- NOTE | 2020-03-19 11:54 | P.PNCA_ITS ---
Subjective Subjective Date of Service: 03/19/20 Interval history: Continues to have AFib with RVR. Looks volume overloaded. Review of Systems Review of Systems Shortness of breath Yes all other systems are reviewed and are negative Physical Exam Vital Signs: Last Vital Signs Temp 98.2 F 03/19/20 11:35 Pulse 89 03/19/20 11:35 Resp 18 03/19/20 11:35 BP 145/81 H 03/19/20 11:35 Pulse Ox 97 03/19/20 11:35 Body Mass Index 49.3 GENERAL APPEARANCE: in no acute distress, overweight. HEENT: unremarkable. HEAD: normocephalic, atraumatic. NECK/THYROID: no carotid bruit, JVD to the angle of jaw. SKIN: Bilateral chronic venous stasis. HEART: no murmurs, irregularly irregular rhythm, S1, S2 normal. LUNGS: clear to auscultation bilaterally. ABDOMEN: Distended, tense, abdominal wall edema. EXTREMITIES: no clubbing, cyanosis. Bilateral 2+ edema. PERIPHERAL PULSES: equal. NEUROLOGIC: nonfocal, alert and oriented. PSYCH: mood/affect full range. Results Labs and Meds Result diagrams: 03/19/20 06:50 03/19/20 06:50 Lab results: Laboratory Results - last 24 hr 03/18/20 03/18/20 03/18/20 07:31 16:05 23:43 WBC RBC Hgb Hct MCV MCH MCHC RDW Plt Count MPV Immature Gran % (Auto) Neut % (Auto) Lymph % (Auto) [place] % (Auto) Eos % (Auto) Baso % (Auto) Lymph # (Auto) [place] # (Auto) Eos # (Auto) Baso # (Auto) Abs Immat Gran (auto) Absolute Neuts (auto) Absolute Nucleated RBC Nucleated RBC % (auto) Smear Tech's Comments VBG pH VBG pCO2 VBG pO2 VBG HCO3 VBG O2 Saturation VBG Base Excess Sodium 138 Potassium 4.5 Chloride 93 L Carbon Dioxide 34 H Anion Gap 16 BUN 11 Creatinine 0.80 Estim Creat Clear Calc 156.2 Estimated GFR > 60 Random Glucose 117 H Lactic Acid 2.2 H* Calcium 7.2 L Magnesium B-Natriuretic Peptide Urine Color YELLOW Urine Appearance CLEAR Urine pH 6.0 Ur Specific [place] >= 1.030 H Urine Protein TRACE Urine Glucose (UA) NEG Urine Ketones NEG Urine Blood NEG Urine Nitrite NEG Ur Leukocyte Esterase NEG 03/19/20 03/19/20 03/19/20 01:25 06:50 06:50 WBC 6.2 RBC 3.49 L Hgb 10.0 L Hct 32.5 L MCV 93.1 MCH 28.7 MCHC 30.8 L RDW 17.3 H Plt Count 272 MPV 9.5 Immature Gran % (Auto) 0.5 H Neut % (Auto) 73.1 H Lymph % (Auto) 9.3 L [place] % (Auto) 14.6 H Eos % (Auto) 1.9 Baso % (Auto) 0.6 Lymph # (Auto) 0.6 L [place] # (Auto) 0.9 Eos # (Auto) 0.1 Baso # (Auto) 0.0 Abs Immat Gran (auto) 0.03 Absolute Neuts (auto) 4.6 Absolute Nucleated RBC 0.000 Nucleated RBC % (auto) 0.0 Smear Tech's Comments VERIFIED VBG pH 7.42 VBG pCO2 50 VBG pO2 59 VBG HCO3 32 VBG O2 Saturation 88.5 VBG Base Excess 6.0 Sodium 136 Potassium 3.7 Chloride 92 L Carbon Dioxide 33 H Anion Gap 15 BUN 10 Creatinine 0.67 Estim Creat Clear Calc 186.6 Estimated GFR > 60 Random Glucose 110 Lactic Acid Calcium 7.4 L Magnesium 1.6 B-Natriuretic Peptide Urine Color Urine Appearance Urine pH Ur Specific [place] Urine Protein Urine Glucose (UA) Urine Ketones Urine Blood Urine Nitrite Ur Leukocyte Esterase 03/19/20 06:50 WBC RBC Hgb Hct MCV MCH MCHC RDW Plt Count MPV Immature Gran % (Auto) Neut % (Auto) Lymph % (Auto) [place] % (Auto) Eos % (Auto) Baso % (Auto) Lymph # (Auto) [place] # (Auto) Eos # (Auto) Baso # (Auto) Abs Immat Gran (auto) Absolute Neuts (auto) Absolute Nucleated RBC Nucleated RBC % (auto) Smear Tech's Comments VBG pH VBG pCO2 VBG pO2 VBG HCO3 VBG O2 Saturation VBG Base Excess Sodium Potassium Chloride Carbon Dioxide Anion Gap BUN Creatinine Estim Creat Clear Calc Estimated GFR Random Glucose Lactic Acid Calcium Magnesium B-Natriuretic Peptide 259 H Urine Color Urine Appearance Urine pH Ur Specific [place] Urine Protein Urine Glucose (UA) Urine Ketones Urine Blood Urine Nitrite Ur Leukocyte Esterase Progress Note: A&P Assessment and plan (1) Atrial fibrillation: Status: Acute (2) Alcohol withdrawal: Status: Acute (3) Hypertension: Status: Acute (4) Congestive heart failure: Status: Acute Assessment and Plan: 60-year-old gentleman with alcoholism and known atrial fibrillation on Xarelto. He has been using Xarelto off and on. He is still in AFib with RVR. He is quite volume overloaded by my exam. I think the diurese him with IV Bumex. He may need metolazone depending on how well he diuresis with IV Bumex. He has more right heart failure by exam. He also has some lymphedema and chronic leg changes for which Wound Care is following him. We will follow along with you. Thank you for allowing me to participate in the care of your patient. Please feel free to contact me if you have any questions. Fall Risk Details Current Medications: Current Medications Generic Name Dose Route Start Last Admin Trade Name Freq PRN Reason Stop Dose Admin Acetaminophen 650 mg 03/18/20 13:23 03/19/20 11:24 Acetaminophen 325 Mg Tablet PO 650 mg Q6H PRN Administration Pain, Mild (Pain Scale 1-3) Albuterol/Ipratropium 3 ml 03/19/20 09:48 Albuterol/Iprat 2.5/0.5mg 3 Ml Ampul.Neb INHALE RQ4H PRN sob Atorvastatin Calcium 40 mg 03/20/20 09:00 Atorvastatin Calcium 40 Mg Tablet PO DAILY BECK Bumetanide 2 mg 03/18/20 21:00 03/19/20 08:37 Bumetanide 1 Mg Tablet PO 2 mg BID BECK Administration Docusate Sodium 100 mg 03/18/20 13:23 Docusate Sodium 100 Mg Capsule PO DAILY PRN Constipation Folic Acid 1 mg 03/19/20 09:00 03/19/20 08:37 Folic Acid 1 Mg Tablet PO 1 mg DAILY BECK Administration Diltiazem HCl 125 mg/ Sodium 125 mls @ 5 mls/hr 03/18/20 10:33 03/19/20 09:35 Chloride IVCONT Not Given .Q24H BECK Protocol 5 MG/HR Cefazolin Sodium/Dextrose 2 gm in 50 mls @ 100 mls/hr 03/19/20 11:00 03/19/20 11:09 Ancef IV 100 mls/hr Q8H BECK Administration Medication 1 each 03/18/20 09:00 No Benzodiazepines MISCELLANE DAILY BECK Metoprolol Succinate 100 mg 03/18/20 21:00 03/19/20 08:37 Metoprolol Succinate Er 100 Mg Tab.Er.24h PO 100 mg BID BECK Administration Protocol Nicotine 14 mg 03/18/20 10:45 03/19/20 08:36 Nicotine 14 Mg Patch.Td24 TRANSDERMA 14 mg DAILY BECK Administration Phenobarbital 60 mg 03/19/20 09:00 03/19/20 08:37 Phenobarbital 30 Mg Tablet PO 03/20/20 21:01 60 mg BID BECK Administration Phenobarbital 30 mg 03/21/20 09:00 Phenobarbital 30 Mg Tablet PO 03/22/20 21:01 BID BECK Phenobarbital 30 mg 03/23/20 09:00 Phenobarbital 30 Mg Tablet PO 03/24/20 09:01 DAILY BECK Sodium Chloride 3 ml 03/18/20 16:00 03/19/20 08:36 0.9 % Sodium Chloride Flush 3 Ml Syringe IVFLUSH 3 ml QSHIFT BECK Administration Thiamine HCl 100 mg 03/19/20 09:00 03/19/20 08:37 Thiamine Hcl 100 Mg Tablet PO 100 mg DAILY BECK Administration Time Spent With Patient Time: Total time spent is greater than 50% in coordination of care (as documented) at patient's floor/unit and/or counseling patient: Time with patient: less than 15 minutes
[2020-03-19] MEDS: Bumetanide 1 MG/4 ML VIAL 2 MG IVPUSH ×2 (12:23→23:37)
[2020-03-19] MEDS: Albuterol/Iprat 2.5/0.5MG 3 ML AMPUL.NEB INHALE (18:13)
[2020-03-20] VITALS (13 sets, daily range): BP systolic 96–146; BP diastolic 45–74; PULSE 84–122; RESP 18–20; TEMP 36.1–36.9; O2SAT 95–100
[2020-03-20] MEDS: Metoprolol Succinate ER 100 MG TAB.ER.24H PO ×3 (01:45→22:46)
[2020-03-20] MEDS: dilTIAZem HCL 125 MG in 0.9 % Sodium Chloride 100 ML 15 MG IVCONT (01:47)
[2020-03-20] MEDS: ceFAZolin Sodium/Dextrose,Iso 2 GM/50 ML PIGGYBACK IV ×3 (02:02→20:13)
--- NOTE | 2020-03-20 06:29 | PC.NURSE ---
Alert and oriented x 4, afebrile. Lung sounds clear/dim, denied SOB or chest pain. A-fib on tele with the HR of 120s-130s around 2300, and on Cardizem drip max at 15 mg/hr. Evening RN unable to give Metoprolol PO due to low BP, but it was given after 1am when BP became more stable. HR in 90s-100s now, Cardizem drip currently at 12.5 mg/hr. BLE wound dressing remained intact. Peters catheter draining yellow urine. slept on recliner chair overnight. Tolerating oxygen at 3 LPM with sats in the high 90s. Needs were attended. Will continue care plan.
[2020-03-20 07:04] LABS: Basophils Percent Auto 0.6 % (0-2); Eosinophils Absolute Auto 0.2 X10*3/uL (0.0-0.4); Eosinophils Percent Auto 3.4 % (0-4); Hematocrit 32.7 % (42-52); Hemoglobin 9.9 g/dl (14.0-18.0); Imm Gran Abs Auto 0.03 X10*3/uL (0.00-0.03); Imm Gran Pct Auto 0.6 % (0.0-0.4); Lymphocytes Absolute Auto 0.6 X10*3/uL (1.2-4.9); Lymphocytes Percent Auto 11.4 % (20-40); MANUAL DIFF FLAG SCAN; Mean Corpuscular HGB Conc 30.3 g/dl (31.0-36.0); Mean Corpuscular Hemoglobin 28.5 pg (27.0-33.0); Mean Corpuscular Volume 94.2 fL (80-98); Mean Platelet Volume 9.5 fL (9.4-12.4); Monocytes Absolute Auto 0.7 X10*3/uL (0.1-1.2); Monocytes Percent Auto 14.6 % (2-11); Neutrophils Absolute Auto 3.5 X10*3/uL (2.0-8.3); Neutrophils Percent Auto 69.4 % (45-73); Platelet Count 260 X10*3/uL (160-400); Red Blood Count 3.47 X10*6/uL (4.60-5.80); Red Cell Distribution Width 17.2 % (11.0-16.0); SCAN SMEAR FLAG 1; White Blood Count 5.1 X10*3/uL (4.8-10.8)
[2020-03-20 07:24] LABS: Anion Gap 13 (12-20); Blood Urea Nitrogen 8 mg/dL (9-16); Calcium 7.4 mg/dL (8.4-10.2); Carbon Dioxide 38 mmol/L (22-29); Chloride 88 mmol/L (96-108); Creatinine Clr Calc Pharmacy 195.3; Estimated Glomerular Filt Rate > 60; Glucose Fasting 95 mg/dL (60-99); Magnesium 1.5 mg/dL (1.6-2.6); Potassium 3.5 mmol/l (3.3-5.1); Sodium 135 mmol/L (135-145)
[2020-03-20 07:48] LABS: Glucose, Whole Blood 99 mg/dL (60-115)
[2020-03-20 08:07] LABS: SLIDE REVIEW VERIFIED
[2020-03-20] MEDS: Bumetanide 1 MG/4 ML VIAL 2 MG IVPUSH ×2 (08:43→20:14)
[2020-03-20] MEDS: 0.9 % Sodium Chloride Flush 3 ML SYRINGE IVFLUSH ×3 (08:45→20:14)
[2020-03-20] MEDS: Acetaminophen 325 MG TABLET 650 MG PO (08:49)
[2020-03-20] MEDS: Nicotine 14 MG PATCH.TD24 TRANSDERMA (08:49)
[2020-03-20] MEDS: Folic Acid 1 MG TABLET PO (08:51)
[2020-03-20] MEDS: PHENobarbitaL 30 MG TABLET 60 MG PO ×2 (08:51→20:14)
[2020-03-20] MEDS: Thiamine HCL 100 MG TABLET PO (08:51)
[2020-03-20] MEDS: Atorvastatin Calcium 40 MG TABLET PO (08:51)
[2020-03-20] MEDS: dilTIAZem HCL 125 MG in 0.9 % Sodium Chloride 100 ML 12.5 MG IVCONT ×2 (10:31→22:37)
[2020-03-20 11:22] LABS: Glucose, Whole Blood 119 mg/dL (60-115)
--- NOTE | 2020-03-20 11:57 | P.PNIM_ITS ---
Subjective Subjective Date of Service: 03/20/20 Interval History: seen in f/u for afib with rvr, persistent afib with rvr Ros: no fever, no chest pain Physical Exam Vital Signs: Vital Signs: Last Vital Signs Temp 97 F 03/20/20 11:02 Pulse 94 03/20/20 11:02 Resp 20 03/20/20 11:02 BP 116/59 L 03/20/20 11:02 Pulse Ox 95 03/20/20 11:02 Body Mass Index 49.3 General: AO X 3, no acute distress Resp: CTA bilateral CVS: S1,S2,RRR GI: +BS, NT, no distention Skin: No rash Neuro: motor grossly intact Psych: appropriate affect Objective Data Current Medications Generic Name Dose Route Start Last Admin Trade Name Freq PRN Reason Stop Dose Admin Acetaminophen 650 mg 03/18/20 13:23 03/20/20 08:49 Acetaminophen 325 Mg Tablet PO 650 mg Q6H PRN Administration Pain, Mild (Pain Scale 1-3) Albuterol/Ipratropium 3 ml 03/19/20 09:48 03/19/20 18:13 Albuterol/Iprat 2.5/0.5mg 3 Ml Ampul.Neb INHALE 3 ml RQ4H PRN Administration sob Atorvastatin Calcium 40 mg 03/20/20 09:00 03/20/20 08:51 Atorvastatin Calcium 40 Mg Tablet PO 40 mg DAILY BECK Administration Bumetanide 2 mg 03/19/20 12:00 03/20/20 08:43 Bumetanide 1 Mg/4 Ml Vial IVPUSH 2 mg BID BECK Administration Protocol Docusate Sodium 100 mg 03/18/20 13:23 Docusate Sodium 100 Mg Capsule PO DAILY PRN Constipation Folic Acid 1 mg 03/19/20 09:00 03/20/20 08:51 Folic Acid 1 Mg Tablet PO 1 mg DAILY BECK Administration Diltiazem HCl 125 mg/ Sodium 125 mls @ 5 mls/hr 03/18/20 10:33 03/20/20 10:31 Chloride IVCONT 12.5 mg/hr .Q24H BECK 12.5 mls/hr Administration Protocol 5 MG/HR Cefazolin Sodium/Dextrose 2 gm in 50 mls @ 100 mls/hr 03/19/20 11:00 03/20/20 11:11 Ancef IV Infused Q8H BECK Infusion Medication 1 each 03/18/20 09:00 No Benzodiazepines MISCELLANE DAILY [facility] Metoprolol Succinate 100 mg 03/18/20 21:00 03/20/20 08:50 Metoprolol Succinate Er 100 Mg Tab.Er.24h PO 100 mg BID BECK Administration Protocol Nicotine 14 mg 03/18/20 10:45 03/20/20 08:49 Nicotine 14 Mg Patch.Td24 TRANSDERMA 14 mg DAILY BECK Administration Phenobarbital 60 mg 03/19/20 09:00 03/20/20 08:51 Phenobarbital 30 Mg Tablet PO 03/20/20 21:01 60 mg BID BECK Administration Phenobarbital 30 mg 03/21/20 09:00 Phenobarbital 30 Mg Tablet PO 03/22/20 21:01 BID BECK Phenobarbital 30 mg 03/23/20 09:00 Phenobarbital 30 Mg Tablet PO 03/24/20 09:01 DAILY BECK Sodium Chloride 3 ml 03/18/20 16:00 03/20/20 08:45 0.9 % Sodium Chloride Flush 3 Ml Syringe IVFLUSH 3 ml QSHIFT BECK Administration Thiamine HCl 100 mg 03/19/20 09:00 03/20/20 08:51 Thiamine Hcl 100 Mg Tablet PO 100 mg DAILY BECK Administration Labs CBC & Chem 7: 03/20/20 05:48 03/20/20 05:48 Microbiology Microbiology Results: Microbiology 03/18/20 07:43 Blood - Venous Blood Culture - Preliminary No growth after 48 hours. 03/18/20 07:31 Blood - Venous Blood Culture - Preliminary No growth after 48 hours. Assessment and Plan (1) Chronic venous stasis: Status: Acute (2) Atrial fibrillation: Status: Acute (3) Acute bilateral venous stasis dermatitis: Status: Acute (4) Acute hyperkalemia: Status: Acute Assessment and Plan: 60-year-old male with history of alcohol dependence, atrial fibrillation, heart failure, COPD, chronic venous stasis, hypertension, dyslipidemia noncompliance who presented to the emergency department after fall found to be in rapid atrial fibrillation Atrial fibrillation with rapid ventricular response continue Cardizem drip Xarelto cardiology following Chronic venous stasis, bilateral legs Component of superimposed cellulitis -IV Ancef -wound care Alcohol dependence--phenobarbital Heart failure with reduced ef and right sided dysfunction with pulm htn Overall somewhat fluid overloaded although no respiratory symptoms Blood pressure soft. Continue home Bumex for now Follow fluid status closely Tobacco dependence Smoking cessation advised -NRT Obstructive sleep apnea Unable to tolerate CPAP Elevated lactic acid No evidence of sepsis Likely related to demand from AFib/low blood pressure -trend Morbid obesity. BMI 49 Weight loss encouraged
--- NOTE | 2020-03-20 12:04 | PM.PNCARD ---
Subjective Subjective Date of Service: 03/20/20 Principal diagnosis: Afib RVR, CHF Interval history: Cardiology follow up for afib, HF. Today he reports that he is feeling some improvement. He feels less palpitation. Denies sob, no CP. Slept in recliner. Legs with dressings bilaterally due to open skin areas and weeping. Peters in place. Continues on Diltiazem drip. Review of Systems Review of Systems Yes all other systems are reviewed and are negative Constitutional: Reports as per HPI, Reports no additional constitutional complaints and Reports frequent falls Reports system reviewed and no additional complaints, except as documented and Denies dizziness Cardiovascular: Denies chest pain, Denies chest pain at rest, Denies chest pain with activity, Denies Epigastric Pain, Denies syncope, Denies radiating jaw, neck or arm pain and Denies dyspnea on exertion Respiratory: Denies chest congestion, Denies cough, Denies hemoptysis, Denies pain on inspiration and Denies dyspnea on exertion Gastrointestinal: Reports no additional gastrointestinal complaints and Denies abdominal pain Comments: abdominal size is decreasing Comments: Lower extremities with open skin areas with dressings, swollen Denies dizziness, Denies syncope and Reports frequent falls Psychiatric: Reports no additional psychiatric complaints and Denies anxiety Physical Exam Vital Signs: Last Vital Signs Temp 97 F 03/20/20 11:02 Pulse 94 03/20/20 11:02 Resp 20 03/20/20 11:02 BP 116/59 L 03/20/20 11:02 Pulse Ox 95 03/20/20 11:02 Body Mass Index 49.3 Const Other: Calm and appropriate at present, morbidly obese, no acute distress Orientation/consciousness: patient oriented x3 Neck Neck: Yes normal visual inspection and Yes no JVD Resp Other: Bilateral expiratory wheezes noted Effort & Inspection: normal respiratory effort, able to speak in complete sentences and not labored Auscultation: no crackles, no rales and no rhonchi Cardio Other: Irregularly, irreg Palpation: normal PMI Heart sounds: S1 normal heart sound present and S2 normal heart sound present GI Other: Obese, rounded, nontender Neuro General: patient oriented x3 Extrem Other: lower extremities with bilateral open skin areas, skin erosion, weeping tissue, with dry dressings in place Results Labs and Meds Result diagrams: 03/20/20 05:48 03/20/20 05:48 Lab results: Laboratory Results - last 24 hr 03/20/20 03/20/20 03/20/20 05:48 05:48 07:45 WBC 5.1 RBC 3.47 L Hgb 9.9 L Hct 32.7 L MCV 94.2 MCH 28.5 MCHC 30.3 L RDW 17.2 H Plt Count 260 MPV 9.5 Immature Gran % (Auto) 0.6 H Neut % (Auto) 69.4 Lymph % (Auto) 11.4 L [place] % (Auto) 14.6 H Eos % (Auto) 3.4 Baso % (Auto) 0.6 Lymph # (Auto) 0.6 L [place] # (Auto) 0.7 Eos # (Auto) 0.2 Baso # (Auto) 0.0 Abs Immat Gran (auto) 0.03 Absolute Neuts (auto) 3.5 Absolute Nucleated RBC 0.000 Nucleated RBC % (auto) 0.0 Smear Tech's Comments VERIFIED Sodium 135 Potassium 3.5 Chloride 88 L Carbon Dioxide 38 H Anion Gap 13 BUN 8 L Creatinine 0.64 Estim Creat Clear Calc 195.3 Estimated GFR > 60 POC Glucose 99 Fasting Glucose 95 Calcium 7.4 L Magnesium 1.5 L 03/20/20 11:17 WBC RBC Hgb Hct MCV MCH MCHC RDW Plt Count MPV Immature Gran % (Auto) Neut % (Auto) Lymph % (Auto) [place] % (Auto) Eos % (Auto) Baso % (Auto) Lymph # (Auto) [place] # (Auto) Eos # (Auto) Baso # (Auto) Abs Immat Gran (auto) Absolute Neuts (auto) Absolute Nucleated RBC Nucleated RBC % (auto) Smear Tech's Comments Sodium Potassium Chloride Carbon Dioxide Anion Gap BUN Creatinine Estim Creat Clear Calc Estimated GFR POC Glucose 119 H Fasting Glucose Calcium Magnesium Progress Note: A&P Assessment and plan (1) Atrial fibrillation with rapid ventricular response: Status: Acute Assessment and Plan: Hx of persistent afib. Admit with alcohol intoxication, fall, afib RVR. Rates elevated this admit. On Diltiazem drip for rate control. Tele now shows afib rates 98-120. Continues on Metoprolol as well for rate control. Does have evidence of fluid overload and is being diuresed. He is being watched and tx for alcohol withdrawal. Continue Diltiazem drip as needed for goal rates < 100. If alcohol remains stable - then plan to foreign exchange services manager over to PO Ditliazem. Continue Metoprolol. Ongoing tele monitoring. He had been on Xarelto at home for anticoagulation. Being held at present due to falls, alcohol use. We will continue to follow. (2) Alcohol withdrawal: Status: Acute (3) Congestive heart failure: Status: Acute Assessment and Plan: Evidence of right sided HF on exam. Last echo 04/08/19 with EF 45-50%, mild to mod RV dysfunction, increased RV systolic pressure. Being diuresed with IV Bumex. Fluid balance Neg 3200 cc since admit. He reports some decrease in abdominal size. Legs have edema and chronic venous stasis ulcers, weeping. This am K 3.5, Mg 1.5, Ca 7.4. Needs ongoing diuresis with IV Bumex. Recommend electrolyte replacement. Close monitoring of electrolyte and kidney function. Strict I+O monitoring. (4) Chronic venous stasis: Status: Acute Assessment and Plan: Has dressings over lower legs, Noted to have open wounds. Already has consult to technical customer support specialist in place. (5) Hypertension: Status: Acute Assessment and Plan: Good at present. Continue to follow Fall Risk Details Current Medications: Current Medications Generic Name Dose Route Start Last Admin Trade Name Tyroneq PRN Reason Stop Dose Admin Acetaminophen 650 mg 03/18/20 13:23 03/20/20 08:49 Acetaminophen 325 Mg Tablet PO 650 mg Q6H PRN Administration Pain, Mild (Pain Scale 1-3) Albuterol/Ipratropium 3 ml 03/19/20 09:48 03/19/20 18:13 Albuterol/Iprat 2.5/0.5mg 3 Ml Ampul.Neb INHALE 3 ml RQ4H PRN Administration sob Atorvastatin Calcium 40 mg 03/20/20 09:00 03/20/20 08:51 Atorvastatin Calcium 40 Mg Tablet PO 40 mg DAILY BECK Administration Bumetanide 2 mg 03/19/20 12:00 03/20/20 08:43 Bumetanide 1 Mg/4 Ml Vial IVPUSH 2 mg BID BECK Administration Protocol Docusate Sodium 100 mg 03/18/20 13:23 Docusate Sodium 100 Mg Capsule PO DAILY PRN Constipation Folic Acid 1 mg 03/19/20 09:00 03/20/20 08:51 Folic Acid 1 Mg Tablet PO 1 mg DAILY BECK Administration Diltiazem HCl 125 mg/ Sodium 125 mls @ 5 mls/hr 03/18/20 10:33 03/20/20 10:31 Chloride IVCONT 12.5 mg/hr .Q24H BECK 12.5 mls/hr Administration Protocol 5 MG/HR Cefazolin Sodium/Dextrose 2 gm in 50 mls @ 100 mls/hr 03/19/20 11:00 03/20/20 11:11 Ancef IV Infused Q8H BECK Infusion Medication 1 each 03/18/20 09:00 No Benzodiazepines MISCELLANE DAILY BECK Metoprolol Succinate 100 mg 03/18/20 21:00 03/20/20 08:50 Metoprolol Succinate Er 100 Mg Tab.Er.24h PO 100 mg BID BECK Administration Protocol Nicotine 14 mg 03/18/20 10:45 03/20/20 08:49 Nicotine 14 Mg Patch.Td24 TRANSDERMA 14 mg DAILY BECK Administration Phenobarbital 60 mg 03/19/20 09:00 03/20/20 08:51 Phenobarbital 30 Mg Tablet PO 03/20/20 21:01 60 mg BID BECK Administration Phenobarbital 30 mg 03/21/20 09:00 Phenobarbital 30 Mg Tablet PO 03/22/20 21:01 BID BECK Phenobarbital 30 mg 03/23/20 09:00 Phenobarbital 30 Mg Tablet PO 03/24/20 09:01 DAILY BECK Sodium Chloride 3 ml 03/18/20 16:00 03/20/20 08:45 0.9 % Sodium Chloride Flush 3 Ml Syringe IVFLUSH 3 ml QSHIFT BECK Administration Thiamine HCl 100 mg 03/19/20 09:00 03/20/20 08:51 Thiamine Hcl 100 Mg Tablet PO 100 mg DAILY BECK Administration Time Spent With Patient Time: Total time spent is greater than 50% in coordination of care (as documented) at patient's floor/unit and/or counseling patient: Time with patient: 15 - 24 minutes
--- NOTE | 2020-03-20 12:43 | MHC.CM.PN ---
[facility] HAS DECLINED RESUMPTION OF SERVICES. [facility] REFERRED.
[2020-03-20] MEDS: Albuterol/Iprat 2.5/0.5MG 3 ML AMPUL.NEB INHALE (18:27)
[2020-03-21] VITALS (7 sets, daily range): BP systolic 116–158; BP diastolic 73–78; PULSE 96–112; RESP 18–20; TEMP 36.5–36.7; O2SAT 95–100
[2020-03-21] MEDS: ceFAZolin Sodium/Dextrose,Iso 2 GM/50 ML PIGGYBACK IV ×3 (03:54→18:09)
[2020-03-21] MEDS: PHENobarbitaL 30 MG TABLET PO ×2 (08:12→21:01)
[2020-03-21] MEDS: Bumetanide 1 MG/4 ML VIAL 2 MG IVPUSH ×2 (08:12→21:01)
[2020-03-21] MEDS: dilTIAZem HCL CD 180 MG CAP.ER.24H PO (08:13)
[2020-03-21] MEDS: Metoprolol Succinate ER 100 MG TAB.ER.24H PO ×2 (08:13→21:01)
[2020-03-21] MEDS: Thiamine HCL 100 MG TABLET PO (08:13)
[2020-03-21] MEDS: Folic Acid 1 MG TABLET PO (08:13)
[2020-03-21] MEDS: Atorvastatin Calcium 40 MG TABLET PO (08:13)
[2020-03-21] MEDS: 0.9 % Sodium Chloride Flush 3 ML SYRINGE IVFLUSH ×3 (08:14→21:11)
[2020-03-21] MEDS: Nicotine 14 MG PATCH.TD24 TRANSDERMA (08:14)
[2020-03-21] MEDS: dilTIAZem HCL 125 MG in 0.9 % Sodium Chloride 100 ML 12.5 MG IVCONT (08:18)
[2020-03-21] MEDS: Albuterol/Iprat 2.5/0.5MG 3 ML AMPUL.NEB INHALE ×2 (10:36→18:11)
--- NOTE | 2020-03-21 11:08 | MHC.CM.PN ---
Goal for dc continues to be for Patient to return home with VNA; Patient has not yet been medically cleared for dc (IV Bumex/CHF, IV Cefazolin, IV Cardizem, wound care, ETOH). CM will continue to follow for dc planning and possible need to adjust the dc plan.
--- NOTE | 2020-03-21 13:31 | PM.PNCARD ---
Subjective Subjective Date of Service: 03/21/20 Principal diagnosis: Afib RVR, CHF Interval history: Cardiology follow up for HF, afib. Seen at 0910. Pt reports did not sleep well during night. No specific complaints. Breathing comfortable. No chest pains, palpitations. Legs still have swelling. Feels his abdomen is smaller. Does not feel that he is having alcohol withdrawal symptoms. Review of Systems Review of Systems Yes all other systems are reviewed and are negative Physical Exam Vital Signs: Last Vital Signs Temp 97.9 F 03/21/20 11:08 Pulse 105 H 03/21/20 11:08 Resp 20 03/21/20 11:08 BP 135/75 03/21/20 11:08 Pulse Ox 95 03/21/20 11:08 Body Mass Index 49.3 Const General: cooperative, no acute distress, alert and awake HENMT Head: Yes normal to inspection Neck Neck: Yes normal visual inspection Resp Effort & Inspection: normal respiratory effort, able to speak in complete sentences and not labored Auscultation: clear to auscultation bilaterally, no crackles, no rales, no rhonchi and wheezes (bilat expiratory wheezes noted) Cardio Palpation: normal PMI Rhythm: abnormal rhythm (irregularly irregular) Heart sounds: S1 normal heart sound present and S2 normal heart sound present GI Other: Obese, rounded, nontender Extrem Other: Lower legs with venous stasis ulcers, open skin area, weeping skin, mostly covered with dry gauze dressings, upper legs with pitting edema that extends into abdomen. Results Labs and Meds Result diagrams: 03/20/20 05:48 03/20/20 05:48 Progress Note: A&P Assessment and plan (1) Congestive heart failure: Problem details: Ongoing signs of fluid overload on exam with pitting edema in lower extremeties to upper thighs and into abdominal tissue. Has hx of right heart failure. Last echo 04/08/19 shows EF 45-50%, mild to mod RV dysfunction and increased RV systolic pressure. Being diuresed with IV Bumex. Fluid balance neg 5 liters since admit. Recommend continue to diurese with IV Bumex. If Cr starts to rise, then change back to PO Bumex. Strict I+O monitoring. Close monitoring of electrolyte and kidney function. Electrolyte replacement as warranted. Status: Acute (2) Atrial fibrillation with rapid ventricular response: Status: Acute Assessment and Plan: Hx persistent afib. Rates elevated on admit. Being Tx with IV Diltiazem drip in addition to his Metoprolol. Tele shows afib rates 90-118. Was started on po Diltiazem today. Will likely need a higher dose - home dose had been Diltiazem 240mg BID. Recommend wean Diltiazem drip to off. Increase PO dose as needed. Continue Metoprolol. Margaux has been on hold due to fall, alcohol use. He is not displaying active withdrawal symptoms. Use of anticoagulation should be reevaluated. Ongoing Tele monitoring while inpt Fall Risk Details Current Medications: Current Medications Generic Name Dose Route Start Last Admin Trade Name Freq PRN Reason Stop Dose Admin Acetaminophen 650 mg 03/18/20 13:23 03/20/20 08:49 Acetaminophen 325 Mg Tablet PO 650 mg Q6H PRN Administration Pain, Mild (Pain Scale 1-3) Albuterol/Ipratropium 3 ml 03/19/20 09:48 03/21/20 10:36 Albuterol/Iprat 2.5/0.5mg 3 Ml Ampul.Neb INHALE 3 ml RQ4H PRN Administration sob Atorvastatin Calcium 40 mg 03/20/20 09:00 03/21/20 08:13 Atorvastatin Calcium 40 Mg Tablet PO 40 mg DAILY BECK Administration Bumetanide 2 mg 03/19/20 12:00 03/21/20 08:12 Bumetanide 1 Mg/4 Ml Vial IVPUSH 2 mg BID BECK Administration Protocol Diltiazem HCl 180 mg 03/21/20 09:00 03/21/20 08:13 Diltiazem Hcl Cd 180 Mg Cap.Er.24h PO 180 mg DAILY BECK Administration Protocol Docusate Sodium 100 mg 03/18/20 13:23 Docusate Sodium 100 Mg Capsule PO DAILY PRN Constipation Folic Acid 1 mg 03/19/20 09:00 03/21/20 08:13 Folic Acid 1 Mg Tablet PO 1 mg DAILY BECK Administration Cefazolin Sodium/Dextrose 2 gm in 50 mls @ 100 mls/hr 03/19/20 11:00 03/21/20 12:09 Ancef IV Infused Q8H BECK Infusion Medication 1 each 03/18/20 09:00 No Benzodiazepines MISCELLANE DAILY BECK Metoprolol Succinate 100 mg 03/18/20 21:00 03/21/20 08:13 Metoprolol Succinate Er 100 Mg Tab.Er.24h PO 100 mg BID BECK Administration Protocol Nicotine 14 mg 03/18/20 10:45 03/21/20 08:14 Nicotine 14 Mg Patch.Td24 TRANSDERMA 14 mg DAILY BECK Administration Phenobarbital 30 mg 03/21/20 09:00 03/21/20 08:12 Phenobarbital 30 Mg Tablet PO 03/22/20 21:01 30 mg BID BECK Administration Phenobarbital 30 mg 03/23/20 09:00 Phenobarbital 30 Mg Tablet PO 03/24/20 09:01 DAILY BECK Sodium Chloride 3 ml 03/18/20 16:00 03/21/20 08:14 0.9 % Sodium Chloride Flush 3 Ml Syringe IVFLUSH 3 ml QSHIFT BECK Administration Thiamine HCl 100 mg 03/19/20 09:00 03/21/20 08:13 Thiamine Hcl 100 Mg Tablet PO 100 mg DAILY BECK Administration Time Spent With Patient Time: Total time spent is greater than 50% in coordination of care (as documented) at patient's floor/unit and/or counseling patient: Time with patient: 15 - 24 minutes
--- NOTE | 2020-03-21 13:34 | MHC.CLN ---
F/U 100% PO INTAKE DIET RX: 1800 CALORIES 2GM NA -APPROPRIATE GLUCERNA AND COSME IN PLACE TO PROMOTE WOUND HEALING FOLLOWING
--- NOTE | 2020-03-21 13:39 | HO.PM.IMPN ---
Subjective Subjective Date of Service: 03/21/20 Interval History: seen in f/u for afib with rvr, persistent afib with rvr Ros: no fever, no chest pain Physical Exam Vital Signs: Vital Signs: Last Vital Signs Temp 97.9 F 03/21/20 11:08 Pulse 105 H 03/21/20 11:08 Resp 20 03/21/20 11:08 BP 135/75 03/21/20 11:08 Pulse Ox 95 03/21/20 11:08 Body Mass Index 49.3 General: AO X 3, no acute distress Resp: CTA bilateral CVS: ireg ireg GI: +BS, NT, no distention Skin: No rash Neuro: motor grossly intact Psych: appropriate affect Objective Data Current Medications Generic Name Dose Route Start Last Admin Trade Name Freq PRN Reason Stop Dose Admin Acetaminophen 650 mg 03/18/20 13:23 03/20/20 08:49 Acetaminophen 325 Mg Tablet PO 650 mg Q6H PRN Administration Pain, Mild (Pain Scale 1-3) Albuterol/Ipratropium 3 ml 03/19/20 09:48 03/21/20 10:36 Albuterol/Iprat 2.5/0.5mg 3 Ml Ampul.Neb INHALE 3 ml RQ4H PRN Administration sob Atorvastatin Calcium 40 mg 03/20/20 09:00 03/21/20 08:13 Atorvastatin Calcium 40 Mg Tablet PO 40 mg DAILY BECK Administration Bumetanide 2 mg 03/19/20 12:00 03/21/20 08:12 Bumetanide 1 Mg/4 Ml Vial IVPUSH 2 mg BID BECK Administration Protocol Diltiazem HCl 180 mg 03/21/20 09:00 03/21/20 08:13 Diltiazem Hcl Cd 180 Mg Cap.Er.24h PO 180 mg DAILY BECK Administration Protocol Docusate Sodium 100 mg 03/18/20 13:23 Docusate Sodium 100 Mg Capsule PO DAILY PRN Constipation Folic Acid 1 mg 03/19/20 09:00 03/21/20 08:13 Folic Acid 1 Mg Tablet PO 1 mg DAILY BECK Administration Cefazolin Sodium/Dextrose 2 gm in 50 mls @ 100 mls/hr 03/19/20 11:00 03/21/20 12:09 Ancef IV Infused Q8H BECK Infusion Medication 1 each 03/18/20 09:00 No Benzodiazepines MISCELLANE DAILY BECK Metoprolol Succinate 100 mg 03/18/20 21:00 03/21/20 08:13 Metoprolol Succinate Er 100 Mg Tab.Er.24h PO 100 mg BID BECK Administration Protocol Nicotine 14 mg 03/18/20 10:45 03/21/20 08:14 Nicotine 14 Mg Patch.Td24 TRANSDERMA 14 mg DAILY BECK Administration Phenobarbital 30 mg 03/21/20 09:00 03/21/20 08:12 Phenobarbital 30 Mg Tablet PO 03/22/20 21:01 30 mg BID BECK Administration Phenobarbital 30 mg 03/23/20 09:00 Phenobarbital 30 Mg Tablet PO 03/24/20 09:01 DAILY BECK Sodium Chloride 3 ml 03/18/20 16:00 03/21/20 08:14 0.9 % Sodium Chloride Flush 3 Ml Syringe IVFLUSH 3 ml QSHIFT BECK Administration Thiamine HCl 100 mg 03/19/20 09:00 03/21/20 08:13 Thiamine Hcl 100 Mg Tablet PO 100 mg DAILY BECK Administration Labs CBC & Chem 7: 03/20/20 05:48 03/20/20 05:48 Microbiology Microbiology Results: Microbiology 03/18/20 07:43 Blood - Venous Blood Culture - Preliminary No growth after 48 hours. 03/18/20 07:31 Blood - Venous Blood Culture - Preliminary No growth after 48 hours. Assessment and Plan (1) Chronic venous stasis: Status: Acute (2) Atrial fibrillation: Status: Acute (3) Acute bilateral venous stasis dermatitis: Status: Acute (4) Acute hyperkalemia: Status: Acute Assessment and Plan: 60-year-old male with history of alcohol dependence, atrial fibrillation, heart failure, COPD, chronic venous stasis, hypertension, dyslipidemia noncompliance who presented to the emergency department after fall found to be in rapid atrial fibrillation Atrial fibrillation with rapid ventricular response continue Cardizem drip Adjust po cardizem, normallly on 240 bid at home restart xarelto cardiology following Chronic venous stasis, bilateral legs Component of superimposed cellulitis -IV Ancef -wound care Alcohol dependence--phenobarbital Heart failure with reduced ef and right sided dysfunction with pulm htn Overall somewhat fluid overloaded although no respiratory symptoms Blood pressure soft. Continue home Bumex for now Follow fluid status closely Tobacco dependence Smoking cessation advised -NRT Obstructive sleep apnea Unable to tolerate CPAP Elevated lactic acid No evidence of sepsis Likely related to demand from AFib/low blood pressure -trend Morbid obesity. BMI 49 Weight loss encouraged
[2020-03-21] MEDS: Acetaminophen 325 MG TABLET 650 MG PO (21:12)
[2020-03-22] VITALS (14 sets, daily range): BP systolic 91–139; BP diastolic 56–74; PULSE 93–128; RESP 18–20; TEMP 36.4–37; O2SAT 93–98
--- NOTE | 2020-03-22 | ECG_ITS ---
Test Reason : ? AFLUTTER Blood Pressure : / mmHG Vent. Rate : 135 BPM Atrial Rate : 125 BPM P-R Int : 000 ms QRS Dur : 148 ms QT Int : 346 ms P-R-T Axes : 000 057 -54 degrees QTc Int : 519 ms Atrial fibrillation with rapid ventricular response with premature ventricular or aberrantly conducted complexes Right bundle branch block T wave abnormality, consider lateral ischemia Abnormal ECG When compared with ECG of 18-MAR-2020 06:35, T wave inversion more evident in Lateral leads Referred By: Carmelo Kiran Electronically Signed By:Carmelo Kiran
[2020-03-22] MEDS: ceFAZolin Sodium/Dextrose,Iso 2 GM/50 ML PIGGYBACK IV ×3 (02:14→22:27)
[2020-03-22] MEDS: Albuterol/Iprat 2.5/0.5MG 3 ML AMPUL.NEB INHALE (07:49)
[2020-03-22] MEDS: Atorvastatin Calcium 40 MG TABLET PO (09:03)
[2020-03-22] MEDS: Thiamine HCL 100 MG TABLET PO (09:03)
[2020-03-22] MEDS: Folic Acid 1 MG TABLET PO (09:03)
[2020-03-22] MEDS: Nicotine 14 MG PATCH.TD24 TRANSDERMA (09:03)
[2020-03-22] MEDS: dilTIAZem HCL CD 240 MG CAP.ER.DEG PO (09:03)
[2020-03-22] MEDS: 0.9 % Sodium Chloride Flush 3 ML SYRINGE IVFLUSH ×3 (09:04→23:04)
[2020-03-22] MEDS: Bumetanide 1 MG/4 ML VIAL 2 MG IVPUSH (09:04)
[2020-03-22 10:18] LABS: B Type Natriuretic Peptide 378 pg/mL (<100)
[2020-03-22 10:21] LABS: Anion Gap 9 (12-20); Blood Urea Nitrogen 6 mg/dL (9-16); Calcium 7.5 mg/dL (8.4-10.2); Carbon Dioxide 43 mmol/L (22-29); Chloride 88 mmol/L (96-108); Creatinine Clr Calc Pharmacy 208.3; Estimated Glomerular Filt Rate > 60; Glucose Random 121 mg/dL (60-115); Magnesium 1.4 mg/dL (1.6-2.6); Potassium 3.3 mmol/l (3.3-5.1); Sodium 137 mmol/L (135-145)
[2020-03-22] MEDS: Metoprolol Succinate ER 100 MG TAB.ER.24H PO (10:42)
[2020-03-22] MEDS: PHENobarbitaL 30 MG TABLET PO ×2 (10:43→22:29)
--- NOTE | 2020-03-22 11:08 | PM.PNCARD ---
Subjective Subjective Date of Service: 03/22/20 Principal diagnosis: Afib RVR, CHF Interval history: Cardiology follow up for AF, Diastolic CHF. Today he reports feeling well. He denies having heart palpitations, chest pains, shortness of breath. Slept in recliner. Legs are uncomfortable with burning at times. Peters remains in place. He denies having issues with alcohol withdrawal at present. Review of Systems Review of Systems as above Yes all other systems are reviewed and are negative Physical Exam Vital Signs: Last Vital Signs Temp 97.5 F 03/22/20 07:42 Pulse 115 H 03/22/20 10:42 Resp 20 03/22/20 07:42 BP 139/56 L 03/22/20 10:42 Pulse Ox 96 03/22/20 07:42 Body Mass Index 49.3 Const Other: Calm, pleasant and appropriate General: cooperative, no acute distress, alert and awake HENMT Other: Obese, difficult to accurately assess for JVD Head: Yes normal to inspection Neck Neck: Yes normal visual inspection Resp Effort & Inspection: normal respiratory effort, able to speak in complete sentences, no cough, not labored and no respiratory distress Auscultation: clear to auscultation bilaterally (Diminished in lower lobes), no crackles, no rales, no rhonchi and no wheezes Cardio Palpation: normal PMI Rhythm: abnormal rhythm (irregularly irregular - rapid this am) Heart sounds: S1 normal heart sound present and S2 normal heart sound present GI Other: obese, rounded Inspection: Yes normal to inspection Skin Other: venous stasis ulcers over his lower legs bilaterally, dressings in place Extrem Other: SMITH, no gross weakness. Pitting edema to skin of upper thighs and lower abdomen Results Labs and Meds Result diagrams: 03/20/20 05:48 03/22/20 09:15 Lab results: Laboratory Results - last 24 hr 03/22/20 03/22/20 09:15 09:15 Sodium 137 Potassium 3.3 Chloride 88 L Carbon Dioxide 43 H* Anion Gap 9 L BUN 6 L Creatinine 0.60 Estim Creat Clear Calc 208.3 Estimated GFR > 60 Random Glucose 121 H Calcium 7.5 L Magnesium 1.4 L* B-Natriuretic Peptide 378 H Progress Note: A&P Assessment and plan (1) Congestive heart failure: Status: Acute Assessment and Plan: Has hx of right heart failure. Last echo 04/08/19 shows EF 45-50%, mild to mod RV dysfunction and increased RV systolic pressure. Evidence of volume overload this admit. Being diuresed with IV Bumex. Fluid balance neg 10 liters since admit. [place] dropping and Co2 rising, Cr stable, K borderline low, mg 1.4. Still has some pitting edema in legs, upper thighs and lower abdomen tissue. Has Lymphedema issues as well. Recommend continue IB Numex through today and change to PO Bumex tomorrow. Continue I+O monitoring. Close monitoring of electrolyte and kidney function. Electrolyte replacement as warranted: Recommend K and Mg replacement today. (2) Atrial fibrillation with rapid ventricular response: Status: Acute Assessment and Plan: Afib RVR on admit. Had been on Diltiazem drip, then started on PO Diltiazem yesterday and continued on his usual metoprolol. Heart rates elevated this am and BP on lower side. EKG done, Atrial flutter. Reviewed meds with Dr Kiran. - Will stop Diltiazem. Will start Digoxin, 0.25mg IV q 6 hr x3 and then 0.125mg EOD. Continue Metoprolol. Ongoing tele monitoring. Pt is off his home xarelto at present due to fall and alcohol use. If he plans to continue to use alcohol at home then would no resume Xarelto on discharge. (3) Lymphedema, not elsewhere classified: Problem details: leg wounds Status: Acute Fall Risk Details Current Medications: Current Medications Generic Name Dose Route Start Last Admin Trade Name Freq PRN Reason Stop Dose Admin Acetaminophen 650 mg 03/18/20 13:23 03/21/20 21:12 Acetaminophen 325 Mg Tablet PO 650 mg Q6H PRN Administration Pain, Mild (Pain Scale 1-3) Albuterol/Ipratropium 3 ml 03/19/20 09:48 03/22/20 07:49 Albuterol/Iprat 2.5/0.5mg 3 Ml Ampul.Neb INHALE 3 ml RQ4H PRN Administration sob Atorvastatin Calcium 40 mg 03/20/20 09:00 03/22/20 09:03 Atorvastatin Calcium 40 Mg Tablet PO 40 mg DAILY BECK Administration Bumetanide 2 mg 03/19/20 12:00 03/22/20 09:04 Bumetanide 1 Mg/4 Ml Vial IVPUSH 2 mg BID BECK Administration Protocol Diltiazem HCl 240 mg 03/22/20 09:00 03/22/20 09:03 Diltiazem Hcl Cd 240 Mg Cap.Er.Deg PO 240 mg DAILY BECK Administration Protocol Docusate Sodium 100 mg 03/18/20 13:23 Docusate Sodium 100 Mg Capsule PO DAILY PRN Constipation Folic Acid 1 mg 03/19/20 09:00 03/22/20 09:03 Folic Acid 1 Mg Tablet PO 1 mg DAILY BECK Administration Cefazolin Sodium/Dextrose 2 gm in 50 mls @ 100 mls/hr 03/19/20 11:00 03/22/20 10:43 Ancef IV 50 mls/hr Q8H BECK Administration Medication 1 each 03/18/20 09:00 No Benzodiazepines MISCELLANE DAILY BECK Metoprolol Succinate 100 mg 03/18/20 21:00 03/22/20 10:42 Metoprolol Succinate Er 100 Mg Tab.Er.24h PO 100 mg BID BECK Administration Protocol Nicotine 14 mg 03/18/20 10:45 03/22/20 09:03 Nicotine 14 Mg Patch.Td24 TRANSDERMA 14 mg DAILY BECK Administration Phenobarbital 30 mg 03/21/20 09:00 03/22/20 10:43 Phenobarbital 30 Mg Tablet PO 03/22/20 21:01 30 mg BID BECK Administration Phenobarbital 30 mg 03/23/20 09:00 Phenobarbital 30 Mg Tablet PO 03/24/20 09:01 DAILY BECK Sodium Chloride 3 ml 03/18/20 16:00 03/22/20 09:04 0.9 % Sodium Chloride Flush 3 Ml Syringe IVFLUSH 3 ml QSHIFT BECK Administration Thiamine HCl 100 mg 03/19/20 09:00 03/22/20 09:03 Thiamine Hcl 100 Mg Tablet PO 100 mg DAILY BECK Administration Time Spent With Patient Time: Total time spent is greater than 50% in coordination of care (as documented) at patient's floor/unit and/or counseling patient: Time with patient: 15 - 24 minutes
[2020-03-22] MEDS: Acetaminophen 325 MG TABLET 650 MG PO (12:31)
[2020-03-22] MEDS: Digoxin 0.5 MG/2 ML AMPUL 0.25 MG IVPUSH ×2 (14:16→22:27)
[2020-03-22] MEDS: Potassium Chloride ER 20 MEQ TAB.ER.PRT 40 MEQ PO (14:17)
[2020-03-22] MEDS: Magnesium Sulfate/H2O 2 GM/50 ML PIGGYBACK IV ×2 (14:18→16:46)
--- NOTE | 2020-03-22 16:11 | HO.PM.IMPN ---
Subjective Subjective Date of Service: 03/22/20 Interval History: seen in f/u for afib with rvr, persistent afib with rvr Ros: no fever, no chest pain Physical Exam Vital Signs: Vital Signs: Last Vital Signs Temp 97.6 F 03/22/20 15:41 Pulse 96 03/22/20 15:41 Resp 18 03/22/20 15:41 BP 109/60 03/22/20 15:41 Pulse Ox 98 03/22/20 15:41 Body Mass Index 49.3 Objective Data Current Medications Generic Name Dose Route Start Last Admin Trade Name Freq PRN Reason Stop Dose Admin Acetaminophen 650 mg 03/18/20 13:23 03/22/20 12:31 Acetaminophen 325 Mg Tablet PO 650 mg Q6H PRN Administration Pain, Mild (Pain Scale 1-3) Albuterol/Ipratropium 3 ml 03/19/20 09:48 03/22/20 07:49 Albuterol/Iprat 2.5/0.5mg 3 Ml Ampul.Neb INHALE 3 ml RQ4H PRN Administration sob Atorvastatin Calcium 40 mg 03/20/20 09:00 03/22/20 09:03 Atorvastatin Calcium 40 Mg Tablet PO 40 mg DAILY BECK Administration Bumetanide 2 mg 03/19/20 12:00 03/22/20 09:04 Bumetanide 1 Mg/4 Ml Vial IVPUSH 2 mg BID BECK Administration Protocol Digoxin 0.25 mg 03/22/20 12:30 03/22/20 14:16 Digoxin 0.5 Mg/2 Ml Ampul IVPUSH 03/23/20 00:31 0.25 mg Q6H BECK Administration Docusate Sodium 100 mg 03/18/20 13:23 Docusate Sodium 100 Mg Capsule PO DAILY PRN Constipation Folic Acid 1 mg 03/19/20 09:00 03/22/20 09:03 Folic Acid 1 Mg Tablet PO 1 mg DAILY BECK Administration Cefazolin Sodium/Dextrose 2 gm in 50 mls @ 100 mls/hr 03/19/20 11:00 03/22/20 12:03 Ancef IV Infused Q8H BECK Infusion Medication 1 each 03/18/20 09:00 No Benzodiazepines MISCELLANE DAILY BECK Metoprolol Succinate 100 mg 03/18/20 21:00 03/22/20 10:42 Metoprolol Succinate Er 100 Mg Tab.Er.24h PO 100 mg BID BECK Administration Protocol Nicotine 14 mg 03/18/20 10:45 03/22/20 09:03 Nicotine 14 Mg Patch.Td24 TRANSDERMA 14 mg DAILY BECK Administration Phenobarbital 30 mg 03/21/20 09:00 03/22/20 10:43 Phenobarbital 30 Mg Tablet PO 03/22/20 21:01 30 mg BID BECK Administration Phenobarbital 30 mg 03/23/20 09:00 Phenobarbital 30 Mg Tablet PO 03/24/20 09:01 DAILY BECK Sodium Chloride 3 ml 03/18/20 16:00 03/22/20 14:25 0.9 % Sodium Chloride Flush 3 Ml Syringe IVFLUSH 3 ml QSHIFT BECK Administration Thiamine HCl 100 mg 03/19/20 09:00 03/22/20 09:03 Thiamine Hcl 100 Mg Tablet PO 100 mg DAILY BECK Administration Labs CBC & Chem 7: 03/20/20 05:48 03/22/20 09:15 Microbiology Microbiology Results: Microbiology 03/18/20 07:43 Blood - Venous Blood Culture - Preliminary No growth after 48 hours. 03/18/20 07:31 Blood - Venous Blood Culture - Preliminary No growth after 48 hours. Assessment and Plan (1) Chronic venous stasis: Status: Acute (2) Atrial fibrillation: Status: Acute (3) Acute bilateral venous stasis dermatitis: Status: Acute (4) Acute hyperkalemia: Status: Acute Assessment and Plan: 60-year-old male with history of alcohol dependence, atrial fibrillation, heart failure, COPD, chronic venous stasis, hypertension, dyslipidemia noncompliance who presented to the emergency department after fall found to be in rapid atrial fibrillation Atrial fibrillation with rapid ventricular response -Off cardizem -being loaded with Dig -continue Xarelto Chronic venous stasis, bilateral legs Component of superimposed cellulitis -IV Ancef, change to PO Doxy at discharge -wound care Alcohol dependence--phenobarbital Heart failure with reduced ef and right sided dysfunction with pulm htn Overall somewhat fluid overloaded although no respiratory symptoms Blood pressure soft. Continue IV Bumex Follow fluid status closely--So far negative 10 liters Tobacco dependence Smoking cessation advised -NRT Obstructive sleep apnea Unable to tolerate CPAP -he does better sleeping in chair Elevated lactic acid No evidence of sepsis Likely related to demand from AFib/low blood pressure -trend Morbid obesity. BMI 49 Weight loss encouraged to minimize adverse health effect of above mentions problems
[2020-03-22] MEDS: Rivaroxaban 20 MG TABLET PO (16:48)
[2020-03-23] VITALS (11 sets, daily range): BP systolic 96–124; BP diastolic 58–73; PULSE 99–132; RESP 16–20; TEMP 36.3–37; O2SAT 92–97
[2020-03-23] MEDS: ceFAZolin Sodium/Dextrose,Iso 2 GM/50 ML PIGGYBACK IV ×3 (02:58→19:57)
[2020-03-23] MEDS: Digoxin 0.5 MG/2 ML AMPUL 0.25 MG IVPUSH (02:59)
--- NOTE | 2020-03-23 08:34 | MHC.CM.PN ---
Patient has been denied by 2 VNAs; broad search VNA referral initiated. CM will follow for dc planning and possible need to adjust the dc plan.
[2020-03-23] MEDS: 0.9 % Sodium Chloride Flush 3 ML SYRINGE IVFLUSH ×3 (09:16→20:12)
[2020-03-23] MEDS: Atorvastatin Calcium 40 MG TABLET PO (09:16)
[2020-03-23] MEDS: Bumetanide 1 MG/4 ML VIAL 2 MG IVPUSH (09:16)
[2020-03-23] MEDS: Rivaroxaban 20 MG TABLET PO (09:16)
[2020-03-23] MEDS: Folic Acid 1 MG TABLET PO (09:16)
[2020-03-23] MEDS: PHENobarbitaL 30 MG TABLET PO (09:16)
[2020-03-23] MEDS: Nicotine 14 MG PATCH.TD24 TRANSDERMA (09:17)
[2020-03-23] MEDS: Thiamine HCL 100 MG TABLET PO (09:17)
[2020-03-23 09:26] LABS: Hematocrit 34.8 % (42-52); Hemoglobin 10.5 g/dl (14.0-18.0); Mean Corpuscular HGB Conc 30.2 g/dl (31.0-36.0); Mean Corpuscular Hemoglobin 28.7 pg (27.0-33.0); Mean Corpuscular Volume 95.1 fL (80-98); Mean Platelet Volume 9.5 fL (9.4-12.4); Platelet Count 258 X10*3/uL (160-400); Red Blood Count 3.66 X10*6/uL (4.60-5.80); Red Cell Distribution Width 17.1 % (11.0-16.0); White Blood Count 4.8 X10*3/uL (4.8-10.8)
[2020-03-23 09:52] LABS: Anion Gap 10 (12-20); Blood Urea Nitrogen 6 mg/dL (9-16); Calcium 7.9 mg/dL (8.4-10.2); Carbon Dioxide 41 mmol/L (22-29); Chloride 91 mmol/L (96-108); Creatinine Clr Calc Pharmacy 208.3; Estimated Glomerular Filt Rate > 60; Glucose Random 109 mg/dL (60-115); Magnesium 1.9 mg/dL (1.6-2.6); Potassium 3.6 mmol/l (3.3-5.1); Sodium 138 mmol/L (135-145)
[2020-03-23] MEDS: Metoprolol Succinate ER 100 MG TAB.ER.24H PO ×2 (11:22→19:58)
--- NOTE | 2020-03-23 11:52 | MHC.CLN ---
F/U 100% PO INTAKE CONTINUES DIET RX: 1800 CALORIES 2GM NA -APPROPRIATE GLUCERNA AND COSME IN PLACE TO PROMOTE WOUND HEALING FOLLOWING
--- NOTE | 2020-03-23 12:08 | PM.PNCARD ---
Subjective Subjective Date of Service: 03/23/20 Principal diagnosis: Afib RVR, CHF Interval history: Cardiology follow up for afib, CHF. Seen at 0900 this am. Today he reports doing good. His legs continue to bother him, otherwise no other complaints. Breathing is comfortable. Slept in recliner. No chest pains or palpitation. No dizziness with standing. Abdominal size is decreasing. Still has swelling in upper legs. Lower legs have dry dressings in place. Peters cath in use. Review of Systems Review of Systems as above Yes all other systems are reviewed and are negative Physical Exam Vital Signs: Last Vital Signs Temp 97.3 F 03/23/20 11:21 Pulse 112 H 03/23/20 11:22 Resp 20 03/23/20 11:21 BP 113/72 03/23/20 11:22 Pulse Ox 92 03/23/20 11:21 Body Mass Index 49.3 Const Other: Obese, sitting in chair General: no acute distress, alert and awake HENMT Other: JVD difficult to assess, no carotid bruit noted Resp Effort & Inspection: normal respiratory effort, able to speak in complete sentences and not labored Auscultation: clear to auscultation bilaterally (diminished sounds throughout ), no crackles, no rales, no rhonchi and no wheezes Cardio Rhythm: abnormal rhythm (Irregular, elevated rate) Heart sounds: S1 normal heart sound present, S2 normal heart sound present and Abnormal heart opening sounds (heart tones are distant ) GI Other: rounded, obese, edema to skin of lower abdomen, Softer and less distended since admit Extrem Other: ulcers to lower legs, covered with dry dressings bilaterally Results Labs and Meds Result diagrams: 03/23/20 08:34 03/23/20 08:34 Lab results: Laboratory Results - last 24 hr 03/23/20 03/23/20 03/23/20 08:34 08:34 08:34 WBC 4.8 RBC 3.66 L Hgb 10.5 L Hct 34.8 L MCV 95.1 MCH 28.7 MCHC 30.2 L RDW 17.1 H Plt Count 258 MPV 9.5 Absolute Nucleated RBC 0.000 Nucleated RBC % (auto) 0.0 Sodium 138 Potassium 3.6 Chloride 91 L Carbon Dioxide 41 H* Anion Gap 10 L BUN 6 L Creatinine 0.60 Estim Creat Clear Calc 208.3 Estimated GFR > 60 Random Glucose 109 Calcium 7.9 L Magnesium 1.9 Progress Note: A&P Assessment and plan (1) Atrial fibrillation with rapid ventricular response: Status: Acute Assessment and Plan: Afib with RVR this admit. Had been on Diltiazem drip then PO. Rate still not controlled. Continued on his usual home Metoprolol xl 100mg bid. Was loaded with Digoxin yesterday. Will start on Digoxin 0.125mg po EOD. Cr 0.6. Tele today shows Afib, RBBB rates 90s- 120s. He denies any palpitations. He is back on Xarelto. If he plans to go back to drinking alcohol after being discharged, the ongoing use of Xarelto needs to be reevaluated. Ongoing Tele monitoring while inpt. Increase activity as tolerated. (2) Congestive heart failure: Status: Acute Assessment and Plan: Hx of diastolic HF. Evidence of fluid overload on admit. Diuresed with IV Bumex with neg fluid balance 14 liters. He continues to have some edema of skin upper thighs and lower abdomen. He does have known hx of lymphedema which likely contributes. Will change him to PO Bumex at this time. Continue with I+O monitoring, close monitoring of electrolyte and kidney function. K today 3.6, Mg 1.9. Recieved replacement for each yesterday. (3) Lymphedema, not elsewhere classified: Problem details: leg wounds Status: Acute (4) Hypertension: Status: Acute Assessment and Plan: On low side, asymptomatic. Changing to PO Bumex. Dig added for heart rate control. Can continue metoprolol. Ongoing BP monitoring. Fall Risk Details Current Medications: Current Medications Generic Name Dose Route Start Last Admin Trade Name Freq PRN Reason Stop Dose Admin Acetaminophen 650 mg 03/18/20 13:23 03/22/20 12:31 Acetaminophen 325 Mg Tablet PO 650 mg Q6H PRN Administration Pain, Mild (Pain Scale 1-3) Albuterol/Ipratropium 3 ml 03/19/20 09:48 03/22/20 07:49 Albuterol/Iprat 2.5/0.5mg 3 Ml Ampul.Neb INHALE 3 ml RQ4H PRN Administration sob Atorvastatin Calcium 40 mg 03/20/20 09:00 03/23/20 09:16 Atorvastatin Calcium 40 Mg Tablet PO 40 mg DAILY BECK Administration Bumetanide 2 mg 03/19/20 12:00 03/23/20 09:16 Bumetanide 1 Mg/4 Ml Vial IVPUSH 2 mg BID BECK Administration Protocol Docusate Sodium 100 mg 03/18/20 13:23 Docusate Sodium 100 Mg Capsule PO DAILY PRN Constipation Folic Acid 1 mg 03/19/20 09:00 03/23/20 09:16 Folic Acid 1 Mg Tablet PO 1 mg DAILY BECK Administration Cefazolin Sodium/Dextrose 2 gm in 50 mls @ 100 mls/hr 03/19/20 11:00 03/23/20 11:23 Ancef IV 100 mls/hr Q8H BECK Administration Medication 1 each 03/18/20 09:00 No Benzodiazepines MISCELLANE DAILY BECK Metoprolol Succinate 100 mg 03/18/20 21:00 03/23/20 11:22 Metoprolol Succinate Er 100 Mg Tab.Er.24h PO 100 mg BID BECK Administration Protocol Nicotine 14 mg 03/18/20 10:45 03/23/20 09:17 Nicotine 14 Mg Patch.Td24 TRANSDERMA 14 mg DAILY BECK Administration Phenobarbital 30 mg 03/23/20 09:00 03/23/20 09:16 Phenobarbital 30 Mg Tablet PO 03/24/20 09:01 30 mg DAILY BECK Administration Rivaroxaban 20 mg 03/22/20 16:25 03/23/20 09:16 Rivaroxaban 20 Mg Tablet PO 20 mg DAILY BECK Administration Sodium Chloride 3 ml 03/18/20 16:00 03/23/20 09:16 0.9 % Sodium Chloride Flush 3 Ml Syringe IVFLUSH 3 ml QSHIFT BECK Administration Thiamine HCl 100 mg 03/19/20 09:00 03/23/20 09:17 Thiamine Hcl 100 Mg Tablet PO 100 mg DAILY BECK Administration Time Spent With Patient Time: Total time spent is greater than 50% in coordination of care (as documented) at patient's floor/unit and/or counseling patient: Time with patient: 15 - 24 minutes
--- NOTE | 2020-03-23 12:38 | HO.PM.IMPN ---
Subjective Subjective Date of Service: 03/23/20 Interval History: seen in f/u for afib with rvr, heart failure. HR is better, no sob Ros: no fever, no chest pain Physical Exam Vital Signs: Vital Signs: Last Vital Signs Temp 97.3 F 03/23/20 11:21 Pulse 112 H 03/23/20 11:22 Resp 20 03/23/20 11:21 BP 113/72 03/23/20 11:22 Pulse Ox 92 03/23/20 11:21 Body Mass Index 49.3 General: AO X 3, no acute distress Resp: diminished breath sounds CVS: S1,S2,RRR, marked leg edema, wrapings in place GI: +BS, NT, no distention Skin: No rash Neuro: motor grossly intact Psych: appropriate affect Objective Data Current Medications Generic Name Dose Route Start Last Admin Trade Name Freq PRN Reason Stop Dose Admin Acetaminophen 650 mg 03/18/20 13:23 03/22/20 12:31 Acetaminophen 325 Mg Tablet PO 650 mg Q6H PRN Administration Pain, Mild (Pain Scale 1-3) Albuterol/Ipratropium 3 ml 03/19/20 09:48 03/22/20 07:49 Albuterol/Iprat 2.5/0.5mg 3 Ml Ampul.Neb INHALE 3 ml RQ4H PRN Administration sob Atorvastatin Calcium 40 mg 03/20/20 09:00 03/23/20 09:16 Atorvastatin Calcium 40 Mg Tablet PO 40 mg DAILY BECK Administration Bumetanide 2 mg 03/23/20 17:00 Bumetanide 1 Mg Tablet PO BID@0800,1700 [facility] Protocol Digoxin 0.125 mg 03/24/20 10:00 Digoxin 0.125 Mg Tablet PO Q2D [facility] Docusate Sodium 100 mg 03/18/20 13:23 Docusate Sodium 100 Mg Capsule PO DAILY PRN Constipation Folic Acid 1 mg 03/19/20 09:00 03/23/20 09:16 Folic Acid 1 Mg Tablet PO 1 mg DAILY BECK Administration Cefazolin Sodium/Dextrose 2 gm in 50 mls @ 100 mls/hr 03/19/20 11:00 03/23/20 12:30 Ancef IV Infused Q8H [facility] Infusion Medication 1 each 03/18/20 09:00 No Benzodiazepines MISCELLANE DAILY [facility] Metoprolol Succinate 100 mg 03/18/20 21:00 03/23/20 11:22 Metoprolol Succinate Er 100 Mg Tab.Er.24h PO 100 mg BID BECK Administration Protocol Nicotine 14 mg 03/18/20 10:45 03/23/20 09:17 Nicotine 14 Mg Patch.Td24 TRANSDERMA 14 mg DAILY BECK Administration Phenobarbital 30 mg 03/23/20 09:00 03/23/20 09:16 Phenobarbital 30 Mg Tablet PO 03/24/20 09:01 30 mg DAILY BECK Administration Rivaroxaban 20 mg 03/22/20 16:25 03/23/20 09:16 Rivaroxaban 20 Mg Tablet PO 20 mg DAILY BECK Administration Sodium Chloride 3 ml 03/18/20 16:00 03/23/20 09:16 0.9 % Sodium Chloride Flush 3 Ml Syringe IVFLUSH 3 ml QSHIFT BECK Administration Thiamine HCl 100 mg 03/19/20 09:00 03/23/20 09:17 Thiamine Hcl 100 Mg Tablet PO 100 mg DAILY BECK Administration Labs CBC & Chem 7: 03/23/20 08:34 03/23/20 08:34 Microbiology Microbiology Results: Microbiology 03/18/20 07:43 Blood - Venous Blood Culture - Final No growth after 5 days. 03/18/20 07:31 Blood - Venous Blood Culture - Final No growth after 5 days. Assessment and Plan (1) Chronic venous stasis: Status: Acute (2) Atrial fibrillation: Status: Acute (3) Acute bilateral venous stasis dermatitis: Status: Acute (4) Acute hyperkalemia: Status: Acute Assessment and Plan: 60-year-old male with history of alcohol dependence, atrial fibrillation, heart failure, COPD, chronic venous stasis, hypertension, dyslipidemia noncompliance who presented to the emergency department after fall found to be in rapid atrial fibrillation Atrial fibrillation with rapid ventricular response, overall obetter -Off cardizem--will worsen leg edema -continue Metorprolol -being loaded with Dig -continue Xarelto Chronic venous stasis, bilateral legs Component of superimposed cellulitis -IV Ancef, change to PO Doxy at discharge -wound care Alcohol dependence--phenobarbital Heart failure with reduced ef and right sided dysfunction with pulm htn Overall still look fluid overloaded Changed to PO Bumex today Follow fluid status closely--So far negative 14 liters Metabolic Alkalosis due to diuretics--Monitor Tobacco dependence Smoking cessation advised -NRT Obstructive sleep apnea Unable to tolerate CPAP -he does better sleeping in chair Elevated lactic acid No evidence of sepsis Likely related to demand from AFib/low blood pressure -trend Morbid obesity. BMI 49 Weight loss encouraged to minimize adverse health effect of above mentions problems Remove santana and if better tomorrow, discharge with VNA
[2020-03-23] MEDS: Bumetanide 1 MG TABLET 2 MG PO (17:19)
[2020-03-23] MEDS: Albuterol/Iprat 2.5/0.5MG 3 ML AMPUL.NEB INHALE (18:08)
[2020-03-24] VITALS (8 sets, daily range): BP systolic 101–132; BP diastolic 51–76; PULSE 95–128; RESP 20–22; TEMP 36.4–37.2; O2SAT 91–94
[2020-03-24] MEDS: ceFAZolin Sodium/Dextrose,Iso 2 GM/50 ML PIGGYBACK IV ×3 (03:19→19:55)
[2020-03-24] MEDS: Nicotine 14 MG PATCH.TD24 TRANSDERMA (07:55)
[2020-03-24] MEDS: Bumetanide 1 MG TABLET 2 MG PO ×2 (07:55→16:39)
[2020-03-24] MEDS: 0.9 % Sodium Chloride Flush 3 ML SYRINGE IVFLUSH ×3 (07:55→20:03)
[2020-03-24] MEDS: Atorvastatin Calcium 40 MG TABLET PO (07:55)
[2020-03-24] MEDS: Folic Acid 1 MG TABLET PO (07:56)
[2020-03-24] MEDS: Metoprolol Succinate ER 100 MG TAB.ER.24H PO ×2 (07:56→19:56)
[2020-03-24] MEDS: Thiamine HCL 100 MG TABLET PO (07:56)
[2020-03-24] MEDS: PHENobarbitaL 30 MG TABLET PO (07:56)
[2020-03-24] MEDS: Rivaroxaban 20 MG TABLET PO (07:56)
[2020-03-24] MEDS: Digoxin 0.125 MG TABLET PO (11:10)
--- NOTE | 2020-03-24 12:55 | P.PNCA_ITS ---
Subjective Subjective Date of Service: 03/24/20 Principal diagnosis: Afib RVR, CHF Interval history: Continues to have AFib with RVR. Review of Systems Review of Systems No significant symptoms Yes all other systems are reviewed and are negative Constitutional: Reports frequent falls Denies dizziness Cardiovascular: Denies syncope Denies dizziness, Denies syncope and Reports frequent falls Physical Exam Vital Signs: Last Vital Signs Temp 98.9 F 03/24/20 12:00 Pulse 95 03/24/20 12:00 Resp 20 03/24/20 12:00 BP 132/71 03/24/20 12:00 Pulse Ox 94 03/24/20 12:00 Body Mass Index 49.3 GENERAL APPEARANCE: in no acute distress, overweight. HEENT: unremarkable. HEAD: normocephalic, atraumatic. NECK/THYROID: no carotid bruit. SKIN: Bilateral chronic venous stasis changes, wounds-dressed.. HEART: no murmurs, irregularly irregular rhythm, S1, S2 normal. LUNGS: clear to auscultation bilaterally. ABDOMEN: Distended, softer, abdominal wall edema improving. EXTREMITIES: no clubbing, cyanosis. NEUROLOGIC: nonfocal, alert and oriented. PSYCH: mood/affect full range. Results Labs and Meds Result diagrams: 03/23/20 08:34 03/23/20 08:34 Progress Note: A&P Assessment and plan (1) Lymphedema, not elsewhere classified: Problem details: leg wounds Status: Acute (2) Fall: Status: Acute (3) Atrial fibrillation with rapid ventricular response: Status: Acute (4) Alcohol withdrawal: Status: Acute (5) Heart failure with reduced ejection fraction and diastolic dysfunction: Problem details: last ef reported 45-50%, RV dysfunction Status: Acute Assessment and Plan: 60-year-old gentleman with alcoholism and background of cardiomyopathy with EF 45-50% with right ventricular dysfunction. He presented with fall in the setting of alcoholism. He was found to be in AFib with RVR and right heart failure. He was diuresed with improvement in volume status. His heart rate in particular has been difficult to control. He previously was on Cardizem and metoprolol. Given his RV dysfunction the Cardizem has been stopped. He is on 100 mg twice a day of Toprol XL. We have added digoxin 125 mcg daily. He is not consistently taking rivaroxaban and given his habits of alcoholism it is also challenging whether he will take rivaroxaban consistently. I think this makes cardioversion in him quite challenging. Post cardioversion the stroke risk is higher than usual and interruption of medications can be quite problematic. Also with his alcoholism we cannot use any medication like a miodarone as there is significant risk of liver injury. I have explained this to Mr. Pearce in detail. I have explained to him that our options are limited and we will try to do the best with the medications we can use. Thank you for allowing me to participate in the care of your patient. Please fe el free to contact me if you have any questions. Fall Risk Details Current Medications: Current Medications Generic Name Dose Route Start Last Admin Trade Name Freq PRN Reason Stop Dose Admin Acetaminophen 650 mg 03/18/20 13:23 03/22/20 12:31 Acetaminophen 325 Mg Tablet PO 650 mg Q6H PRN Administration Pain, Mild (Pain Scale 1-3) Albuterol/Ipratropium 3 ml 03/19/20 09:48 03/23/20 18:08 Albuterol/Iprat 2.5/0.5mg 3 Ml Ampul.Neb INHALE 3 ml RQ4H PRN Administration sob Atorvastatin Calcium 40 mg 03/20/20 09:00 03/24/20 07:55 Atorvastatin Calcium 40 Mg Tablet PO 40 mg DAILY BECK Administration Bumetanide 2 mg 03/23/20 17:00 03/24/20 07:55 Bumetanide 1 Mg Tablet PO 2 mg BID@0800,1700 BECK Administration Protocol Digoxin 0.125 mg 03/24/20 12:30 Digoxin 0.125 Mg Tablet PO DAILY BECK Docusate Sodium 100 mg 03/18/20 13:23 Docusate Sodium 100 Mg Capsule PO DAILY PRN Constipation Folic Acid 1 mg 03/19/20 09:00 03/24/20 07:56 Folic Acid 1 Mg Tablet PO 1 mg DAILY BECK Administration Cefazolin Sodium/Dextrose 2 gm in 50 mls @ 100 mls/hr 03/19/20 11:00 03/24/20 12:24 Ancef IV Infused Q8H BECK Infusion Medication 1 each 03/18/20 09:00 No Benzodiazepines MISCELLANE DAILY BECK Metoprolol Succinate 100 mg 03/18/20 21:00 03/24/20 07:56 Metoprolol Succinate Er 100 Mg Tab.Er.24h PO 100 mg BID BECK Administration Protocol Nicotine 14 mg 03/18/20 10:45 03/24/20 07:55 Nicotine 14 Mg Patch.Td24 TRANSDERMA 14 mg DAILY BECK Administration Rivaroxaban 20 mg 03/22/20 16:25 03/24/20 07:56 Rivaroxaban 20 Mg Tablet PO 20 mg DAILY BECK Administration Sodium Chloride 3 ml 03/18/20 16:00 03/24/20 07:55 0.9 % Sodium Chloride Flush 3 Ml Syringe IVFLUSH 3 ml QSHIFT BECK Administration Thiamine HCl 100 mg 03/19/20 09:00 03/24/20 07:56 Thiamine Hcl 100 Mg Tablet PO 100 mg DAILY BECK Administration Time Spent With Patient Time: Total time spent is greater than 50% in coordination of care (as documented) at patient's floor/unit and/or counseling patient: Time with patient: 15 - 24 minutes
--- NOTE | 2020-03-24 13:39 | P.PNIM_ITS ---
Subjective Subjective Date of Service: 03/24/20 Interval History: seen in f/u for afib with rvr, heart failure. HR is better, no sob Ros: no fever, no chest pain Physical Exam Vital Signs: Vital Signs: Last Vital Signs Temp 98.9 F 03/24/20 12:00 Pulse 95 03/24/20 12:00 Resp 20 03/24/20 12:00 BP 132/71 03/24/20 12:00 Pulse Ox 94 03/24/20 12:00 Body Mass Index 49.3 General: AO X 3, no acute distress Resp: diminished breath sounds CVS: S1,S2,RRR, marked leg edema, wrapings in place GI: +BS, NT, no distention Skin: No rash Neuro: motor grossly intact Psych: appropriate affect Objective Data Current Medications Generic Name Dose Route Start Last Admin Trade Name Freq PRN Reason Stop Dose Admin Acetaminophen 650 mg 03/18/20 13:23 03/22/20 12:31 Acetaminophen 325 Mg Tablet PO 650 mg Q6H PRN Administration Pain, Mild (Pain Scale 1-3) Albuterol/Ipratropium 3 ml 03/19/20 09:48 03/23/20 18:08 Albuterol/Iprat 2.5/0.5mg 3 Ml Ampul.Neb INHALE 3 ml RQ4H PRN Administration sob Atorvastatin Calcium 40 mg 03/20/20 09:00 03/24/20 07:55 Atorvastatin Calcium 40 Mg Tablet PO 40 mg DAILY BECK Administration Bumetanide 2 mg 03/23/20 17:00 03/24/20 07:55 Bumetanide 1 Mg Tablet PO 2 mg BID@0800,1700 BECK Administration Protocol Digoxin 0.125 mg 03/24/20 12:30 Digoxin 0.125 Mg Tablet PO DAILY BECK Docusate Sodium 100 mg 03/18/20 13:23 Docusate Sodium 100 Mg Capsule PO DAILY PRN Constipation Folic Acid 1 mg 03/19/20 09:00 03/24/20 07:56 Folic Acid 1 Mg Tablet PO 1 mg DAILY BECK Administration Cefazolin Sodium/Dextrose 2 gm in 50 mls @ 100 mls/hr 03/19/20 11:00 03/24/20 12:24 Ancef IV Infused Q8H [facility] Infusion Medication 1 each 03/18/20 09:00 No Benzodiazepines MISCELLANE DAILY [facility] Metoprolol Succinate 100 mg 03/18/20 21:00 03/24/20 07:56 Metoprolol Succinate Er 100 Mg Tab.Er.24h PO 100 mg BID BECK Administration Protocol Nicotine 14 mg 03/18/20 10:45 03/24/20 07:55 Nicotine 14 Mg Patch.Td24 TRANSDERMA 14 mg DAILY BECK Administration Rivaroxaban 20 mg 03/22/20 16:25 03/24/20 07:56 Rivaroxaban 20 Mg Tablet PO 20 mg DAILY BECK Administration Sodium Chloride 3 ml 03/18/20 16:00 03/24/20 07:55 0.9 % Sodium Chloride Flush 3 Ml Syringe IVFLUSH 3 ml QSHIFT [facility] Administration Thiamine HCl 100 mg 03/19/20 09:00 03/24/20 07:56 Thiamine Hcl 100 Mg Tablet PO 100 mg DAILY BECK Administration Labs CBC & Chem 7: 03/23/20 08:34 03/23/20 08:34 Microbiology Microbiology Results: Microbiology 03/18/20 07:43 Blood - Venous Blood Culture - Final No growth after 5 days. 03/18/20 07:31 Blood - Venous Blood Culture - Final No growth after 5 days. Assessment and Plan (1) Chronic venous stasis: Status: Acute (2) Atrial fibrillation: Status: Acute (3) Acute bilateral venous stasis dermatitis: Status: Acute (4) Acute hyperkalemia: Status: Acute Assessment and Plan: 60-year-old male with history of alcohol dependence, atrial fibrillation, heart failure, COPD, chronic venous stasis, hypertension, dyslipidemia noncompliance who presented to the emergency department after fall found to be in rapid atrial fibrillation Atrial fibrillation that is very hard to control. Rate is very variable. Presently is on Metoprololand digoxin. Cardizem is disontinued as it is worsening edema and heart failure. Cardioversion is risky in this man due to non compliance with anticoagulation and if cardioverted should be consistent with anticoagulation for weeks as stroke risk in higher imidiately after cardioversion. For now will be on Metoprolol and cardizem ans Xarelto but at discharge will need to be reevaluated for xarelto Chronic venous stasis, bilateral legs Component of superimposed cellulitis -IV Ancef, change to PO Doxy at discharge -wound care Alcohol dependence--phenobarbital Heart failure with reduced ef and right sided dysfunction with pulm htn Overall still look fluid overloaded Changed to PO Bumex today Follow fluid status closely--So far negative 20 liters Metabolic Alkalosis due to diuretics--Monitor Tobacco dependence Smoking cessation advised -NRT Obstructive sleep apnea Unable to tolerate CPAP -he does better sleeping in chair Elevated lactic acid No evidence of sepsis Likely related to demand from AFib/low blood pressure -trend Morbid obesity. BMI 49 Weight loss encouraged to minimize adverse health effect of above mentions problems Remove santana and if better tomorrow, discharge with VNA
[2020-03-24] MEDS: Albuterol/Iprat 2.5/0.5MG 3 ML AMPUL.NEB INHALE (16:40)
[2020-03-25] VITALS (11 sets, daily range): BP systolic 100–126; BP diastolic 57–72; PULSE 78–134; RESP 18–20; TEMP 35.9–37; O2SAT 92–96
[2020-03-25] MEDS: ceFAZolin Sodium/Dextrose,Iso 2 GM/50 ML PIGGYBACK IV ×3 (04:30→18:15)
[2020-03-25 07:15] LABS: Hematocrit 35.1 % (42-52); Hemoglobin 10.4 g/dl (14.0-18.0); Mean Corpuscular HGB Conc 29.6 g/dl (31.0-36.0); Mean Corpuscular Hemoglobin 27.8 pg (27.0-33.0); Mean Corpuscular Volume 93.9 fL (80-98); Mean Platelet Volume 9.3 fL (9.4-12.4); Platelet Count 271 X10*3/uL (160-400); Red Blood Count 3.74 X10*6/uL (4.60-5.80); Red Cell Distribution Width 16.8 % (11.0-16.0); White Blood Count 5.4 X10*3/uL (4.8-10.8)
[2020-03-25 07:33] LABS: Anion Gap 11 (12-20); Blood Urea Nitrogen 8 mg/dL (9-16); Carbon Dioxide 39 mmol/L (22-29); Chloride 93 mmol/L (96-108); Creatinine Clr Calc Pharmacy 201.6; Estimated Glomerular Filt Rate > 60; Glucose Random 128 mg/dL (60-115); Potassium 3.5 mmol/l (3.3-5.1); Sodium 139 mmol/L (135-145)
[2020-03-25] MEDS: 0.9 % Sodium Chloride Flush 3 ML SYRINGE IVFLUSH ×2 (09:44→17:04)
[2020-03-25] MEDS: Bumetanide 1 MG TABLET 2 MG PO ×2 (09:44→17:04)
[2020-03-25] MEDS: Rivaroxaban 20 MG TABLET PO (09:44)
[2020-03-25] MEDS: Digoxin 0.125 MG TABLET PO (09:45)
[2020-03-25] MEDS: Metoprolol Succinate ER 100 MG TAB.ER.24H PO ×2 (09:45→20:36)
[2020-03-25] MEDS: Folic Acid 1 MG TABLET PO (09:46)
[2020-03-25] MEDS: Atorvastatin Calcium 40 MG TABLET PO (09:46)
[2020-03-25] MEDS: Thiamine HCL 100 MG TABLET PO (09:46)
[2020-03-25] MEDS: Nicotine 14 MG PATCH.TD24 TRANSDERMA (09:46)
--- NOTE | 2020-03-25 11:10 | P.PNIM_ITS ---
Subjective Subjective Date of Service: 03/25/20 Interval History: seen in f/u for afib with rvr, heart failure. HR remains very variable from 115 to 130s on average Ros: no fever, no chest pain Physical Exam Vital Signs: Vital Signs: Last Vital Signs Temp 96.7 F L 03/25/20 08:29 Pulse 127 H 03/25/20 09:45 Resp 20 03/25/20 08:29 BP 101/57 L 03/25/20 09:45 Pulse Ox 96 03/25/20 08:29 Body Mass Index 49.3 General: AO X 3, no acute distress Resp: diminished breath sounds CVS: S1,S2,RRR, marked leg edema, wrapings in place GI: +BS, NT, no distention Skin: No rash Neuro: motor grossly intact Psych: appropriate affect Objective Data Current Medications Generic Name Dose Route Start Last Admin Trade Name Freq PRN Reason Stop Dose Admin Acetaminophen 650 mg 03/18/20 13:23 03/22/20 12:31 Acetaminophen 325 Mg Tablet PO 650 mg Q6H PRN Administration Pain, Mild (Pain Scale 1-3) Albuterol/Ipratropium 3 ml 03/19/20 09:48 03/24/20 16:40 Albuterol/Iprat 2.5/0.5mg 3 Ml Ampul.Neb INHALE 3 ml RQ4H PRN Administration sob Atorvastatin Calcium 40 mg 03/20/20 09:00 03/25/20 09:46 Atorvastatin Calcium 40 Mg Tablet PO 40 mg DAILY BECK Administration Bumetanide 2 mg 03/23/20 17:00 03/25/20 09:44 Bumetanide 1 Mg Tablet PO 2 mg BID@0800,1700 BECK Administration Protocol Digoxin 0.125 mg 03/25/20 09:00 03/25/20 09:45 Digoxin 0.125 Mg Tablet PO 0.125 mg DAILY BECK Administration Docusate Sodium 100 mg 03/18/20 13:23 Docusate Sodium 100 Mg Capsule PO DAILY PRN Constipation Folic Acid 1 mg 03/19/20 09:00 03/25/20 09:46 Folic Acid 1 Mg Tablet PO 1 mg DAILY BECK Administration Cefazolin Sodium/Dextrose 2 gm in 50 mls @ 100 mls/hr 03/19/20 11:00 03/25/20 05:19 Ancef IV Infused Q8H BECK Infusion Medication 1 each 03/18/20 09:00 No Benzodiazepines MISCELLANE DAILY [facility] Metoprolol Succinate 100 mg 03/18/20 21:00 03/25/20 09:45 Metoprolol Succinate Er 100 Mg Tab.Er.24h PO 100 mg BID BECK Administration Protocol Nicotine 14 mg 03/18/20 10:45 03/25/20 09:46 Nicotine 14 Mg Patch.Td24 TRANSDERMA 14 mg DAILY BECK Administration Rivaroxaban 20 mg 03/22/20 16:25 03/25/20 09:44 Rivaroxaban 20 Mg Tablet PO 20 mg DAILY BECK Administration Sodium Chloride 3 ml 03/18/20 16:00 03/25/20 09:44 0.9 % Sodium Chloride Flush 3 Ml Syringe IVFLUSH 3 ml QSHIFT BECK Administration Thiamine HCl 100 mg 03/19/20 09:00 03/25/20 09:46 Thiamine Hcl 100 Mg Tablet PO 100 mg DAILY BECK Administration Labs CBC & Chem 7: 03/25/20 06:52 03/25/20 06:52 Microbiology Microbiology Results: Microbiology 03/18/20 07:43 Blood - Venous Blood Culture - Final No growth after 5 days. 03/18/20 07:31 Blood - Venous Blood Culture - Final No growth after 5 days. Assessment and Plan (1) Chronic venous stasis: Status: Acute (2) Atrial fibrillation: Status: Acute (3) Acute bilateral venous stasis dermatitis: Status: Acute (4) Acute hyperkalemia: Status: Acute Assessment and Plan: 60-year-old male with history of alcohol dependence, atrial fibrillation, heart failure, COPD, chronic venous stasis, hypertension, dyslipidemia noncompliance who presented to the emergency department after fall found to be in rapid atrial fibrillation Atrial fibrillation that is very hard to control. Rate is very variable. Presently is on Metoprololand digoxin. Cardizem is disontinued as it is worsening edema and heart failure. Cardioversion is risky in this man due to non compliance with anticoagulation and if cardioverted should be consistent with anticoagulation for weeks as stroke risk in higher imidiately after cardioversion. -For now to continue Toprolol XL 150 in am and 100 at night, Digoxin 0.125 mg daily. Xarelto--he says he wants it to prevent and will take it discharge and avoid alcohol--all associated risks explained to him Chronic venous stasis, bilateral legs Component of superimposed cellulitis -IV Ancef, change to PO Doxy at discharge for 7 more days -wound care Alcohol dependence--phenobarbital Heart failure with reduced ef and right sided dysfunction with pulm htn Overall still look fluid overloaded Changed to PO Bumex today Follow fluid status closely--So far negative 21 liters Metabolic Alkalosis due to diuretics--Monitor, diamox today Tobacco dependence Smoking cessation advised -NRT Obstructive sleep apnea Unable to tolerate CPAP -he does better sleeping in chair Elevated lactic acid No evidence of sepsis Likely related to demand from AFib/low blood pressure -trend Morbid obesity. BMI 49 Weight loss encouraged to minimize adverse health effect of above mentions problems Remove santana and if better tomorrow, discharge with VNA...doesn't want rehab
[2020-03-25 11:35] LABS: Magnesium 1.7 mg/dL (1.6-2.6)
[2020-03-25] MEDS: Metoprolol Succinate ER 50 MG TAB.ER.24H PO (12:01)
--- NOTE | 2020-03-25 14:16 | PC.NURSE ---
Peters cath removed at 10 am per verbal order per MD. Patient voided 800 cc of pale yellow urine into urinal by 1200. Patient continues to void without issue
--- NOTE | 2020-03-25 17:38 | PC.NURSE ---
Patient refused chair alarm,encouraged to ask for assistance
[2020-03-26] MEDS: 0.9 % Sodium Chloride Flush 3 ML SYRINGE IVFLUSH ×2 (00:59→07:44)
[2020-03-26] MEDS: ceFAZolin Sodium/Dextrose,Iso 2 GM/50 ML PIGGYBACK IV ×2 (02:48→10:17)
[2020-03-26 04:00] VITALS: BP 123/73; PULSE 92; RESP 20; TEMP 36.4; O2SAT 91
[2020-03-26] MEDS: Acetaminophen 325 MG TABLET 650 MG PO (07:43)
[2020-03-26 07:54] VITALS: BP 111/77; PULSE 111; RESP 20; TEMP 36.4; O2SAT 96
[2020-03-26] MEDS: oxyCODONE HCl Immed Release 5 MG TABLET PO (08:13)
[2020-03-26] MEDS: Nicotine 14 MG PATCH.TD24 TRANSDERMA (08:13)
[2020-03-26] MEDS: Digoxin 0.125 MG TABLET PO (08:14)
[2020-03-26] MEDS: Metoprolol Succinate ER 100 MG TAB.ER.24H PO (08:14)
[2020-03-26] MEDS: Bumetanide 1 MG TABLET 2 MG PO (08:14)
[2020-03-26] MEDS: Rivaroxaban 20 MG TABLET PO (08:14)
[2020-03-26] MEDS: Atorvastatin Calcium 40 MG TABLET PO (08:14)
[2020-03-26] MEDS: Folic Acid 1 MG TABLET PO (08:14)
[2020-03-26] MEDS: Thiamine HCL 100 MG TABLET PO (08:14)
--- NOTE | 2020-03-26 10:48 | P.F2F_ITS ---
Service Date Service Date: 03/26/20 Reasons for Services Homebound: Leaving the home is medically contraindicated at this time without the asist of a device and/or another person due th the listed conditions above and below. needs home wound care, alginate and compression daily, follow up with wound care clinic when able. Certification: Based on the above findings, I certify that this patient is confined to the home and needs intermittent correction care, physical therapy and/or speech therapy, or continues to need occupational therapy. The patient is under my care, and I have initiated the establishment of the plan of care. The patient will be followed by a physician who will periodically review the plan of care.
[2020-03-26 11:44] VITALS: BP 114/62; PULSE 98; RESP 20; TEMP 36.8; O2SAT 98
--- NOTE | 2020-03-26 12:24 | P.PNCA_ITS ---
Subjective Subjective Date of Service: 03/26/20 <DARIN Dowd - Last Filed: 03/26/20 12:45> 03/26/20 <Nayan Cao MD - Last Filed: 03/26/20 18:03> Principal diagnosis: Afib RVR, Right heart failure, CHF <DARIN Dowd - Last Filed: 03/26/20 12:45> Interval history: Cardiology follow up of Afib RVR, right heart failure. Seen at 1015. Today he states he is going home. He is feeling good. He denies any sob, CP, palpitations. No dizziness. Abdominal size much decreased. Legs less swollen. Has new leg dressing applied this am. Slept in recliner which he has done all admission. <DARIN Dowd - Last Filed: 03/26/20 12:45> Review of Systems Review of Systems as above <DARIN Dowd - Last Filed: 03/26/20 12:45> Yes all other systems are reviewed and are negative <DARIN Dowd - Last Filed: 03/26/20 12:45> Physical Exam Vital Signs: Last Vital Signs Temp 98.2 F 03/26/20 11:44 Pulse 98 03/26/20 11:44 Resp 20 03/26/20 11:44 BP 114/62 03/26/20 11:44 Pulse Ox 98 03/26/20 11:44 Body Mass Index 49.3 <DARIN Dowd - Last Filed: 03/26/20 12:45> Const Other: Pleasant and appropriate <DARIN Dowd - Last Filed: 03/26/20 12:45> General: cooperative, no acute distress, alert and awake <DARIN Dowd - Last Filed: 03/26/20 12:45> Neck Neck: Yes normal visual inspection and Yes no JVD (No noted JVD) <DARIN Dowd - Last Filed: 03/26/20 12:45> Resp Effort & Inspection: normal respiratory effort, able to speak in complete sentences, not labored and no respiratory distress <DARIN Dowd - Last Filed: 03/26/20 12:45> Auscultation: no crackles, no rales, no rhonchi, no wheezes and diminished lung sounds <DARIN Dowd - Last Filed: 03/26/20 12:45> Cardio Heart sounds: S1 normal heart sound present, S2 normal heart sound present, no gallops, no murmurs, no rubs and Abnormal heart opening sounds (irregularly irregular, rapid) <MARK ANTHONY DowdC - Last Filed: 03/26/20 12:45> GI Other: obese, nontender <MARK ANTHONY DowdC - Last Filed: 03/26/20 12:45> Skin Other: dry dressings over lower legs - venous stasis ulcers <MARK ANTHONY Dowd - Last Filed: 03/26/20 12:45> Extrem Other: pitting edema in his thighs, less dense than previously noted on exam <DARIN Dowd - Last Filed: 03/26/20 12:45> Results Labs and Meds Result diagrams: : 03/25/20 06:52 03/25/20 06:52 <MARK ANTHONY DowdC - Last Filed: 03/26/20 12:45> Progress Note: A&P Assessment and plan (1) Atrial fibrillation with rapid ventricular response: Status: Acute <DARIN Dowd - Last Filed: 03/26/20 12:45> Assessment and Plan: Being treated for afib rate control this admit. Rate has been difficult to control. Pt denies symptoms. Tele shows afib rates average 100-120. Will increase his metoprolol xl from 100mg BID to 100mg TID. Will continue Digoxin 0.125mg daily. Check digoxin level in 5 days. Spent time discussing his alcohol use and the risk of bleeding/ falls with anticoagulation. He tells me that he is committed to stopping drinking but will continue his smoking. Will continue on Xarelto at this time. If he does infact continue alcohol use, this will need to be reevaluated. We will plan for outpt Holter monitor and cardiology follow up. We will sign off. He tells me that he is being discharged today. <DARIN Dowd - Last Filed: 03/26/20 12:45> (2) Heart failure with reduced ejection fraction and diastolic dysfunction: Problem details: last ef reported 45-50%, RV dysfunction <Genie Naranjo DARIN Esteban - Last Filed: 03/26/20 12:45> Status: Acute <Genie KhanDARIN degroot - Last Filed: 03/26/20 12:45> Assessment and Plan: Evidence of right heart failure on admit. Echo from 04/2019 shows EF 45-50%, mild to mod RV dysfunction, mild to mod MR. Diuresed with IV Bumex with neg fluid balance of 24 liters this admit. He reports much reduced abdominal and leg size. Breathing unlabored. Back on po Bumex as of 3 days ago. Cr 0.62, mg 1.7, K 3.5. Wearing O2 supplement which he states he uses at home as well. Continue on Bumex 2mg po BID. We will arrange for outpt echo. <DARIN Dowd - Last Filed: 03/26/20 12:45> (3) Hypertension: Status: Acute <Genie Naranjo DARIN Esteban - Last Filed: 03/26/20 12:45> (4) Chronic venous stasis: Status: Acute <Genie DARIN Denise - Last Filed: 03/26/20 12:45> Assessment and Plan: To be following with wound clinic after discharge <DARIN Dowd - Last Filed: 03/26/20 12:45> (5) Lymphedema, not elsewhere classified: Problem details: leg wounds <Genie M DARIN Esteban - Last Filed: 03/26/20 12:45> Status: Acute <Genie Naranjo DARIN Esteban - Last Filed: 03/26/20 12:45> (6) Congestive heart failure: Status: Acute <DARIN Dowd - Last Filed: 03/26/20 12:45> Assessment and Plan: Congestive heart failure predominantly severe right-sided heart failure has been diuresed about 24 L since admission. Clinically appears to be euvolemic. Switch to p.o. Bumex. Remains extremely poor candidate for long- term management given his noncompliance with follow-ups. He never comes for office visit. Discussed with him the importance of following of the office he said he will. Continue current diuretic dose. Will require outpatient workup for his right heart failure including workup for sleep apnea. He understands and agrees. Discharge home with VNA. <Nayan Cao MD - Last Filed: 03/26/20 18:03> (7) Atrial fibrillation: Status: Acute <DARIN Dowd - Last Filed: 03/26/20 12:45> Assessment and Plan: Atrial fibrillation borderline rate control. Not an ideal candidate for oral anticoagulant but is currently agreeing to use it. Complete abstinence from alcohol was discussed. Should stay in the hospital for 1 more day increase metoprolol to 100 mg t.i.d.. Continue digoxin dose. However he is adamant on wanting to go home. Will set up for outpatient follow-up with Holter monitor and echocardiogram. <Nayan Cao MD - Last Filed: 03/26/20 18:03> Fall Risk Details Current Medications: Current Medications Generic Name Dose Route Start Last Admin Trade Name Freq PRN Reason Stop Dose Admin Acetaminophen 650 mg 03/18/20 13:23 03/26/20 07:43 Acetaminophen 325 Mg Tablet PO 650 mg Q6H PRN Administration Pain, Mild (Pain Scale 1-3) Atorvastatin Calcium 40 mg 03/20/20 09:00 03/26/20 08:14 Atorvastatin Calcium 40 Mg Tablet PO 40 mg DAILY BECK Administration Bumetanide 2 mg 03/23/20 17:00 03/26/20 08:14 Bumetanide 1 Mg Tablet PO 2 mg BID@0800,1700 BECK Administration Protocol Digoxin 0.125 mg 03/25/20 09:00 03/26/20 08:14 Digoxin 0.125 Mg Tablet PO 0.125 mg DAILY BECK Administration Docusate Sodium 100 mg 03/18/20 13:23 Docusate Sodium 100 Mg Capsule PO DAILY PRN Constipation Folic Acid 1 mg 03/19/20 09:00 03/26/20 08:14 Folic Acid 1 Mg Tablet PO 1 mg DAILY BECK Administration Medication 1 each 03/18/20 09:00 No Benzodiazepines MISCELLANE DAILY BECK Metoprolol Succinate 100 mg 03/18/20 21:00 03/26/20 08:14 Metoprolol Succinate Er 100 Mg Tab.Er.24h PO 100 mg BID BECK Administration Protocol Nicotine 14 mg 03/18/20 10:45 03/26/20 08:13 Nicotine 14 Mg Patch.Td24 TRANSDERMA 14 mg DAILY BECK Administration Rivaroxaban 20 mg 03/22/20 16:25 03/26/20 08:14 Rivaroxaban 20 Mg Tablet PO 20 mg DAILY BECK Administration Sodium Chloride 3 ml 03/18/20 16:00 03/26/20 07:44 0.9 % Sodium Chloride Flush 3 Ml Syringe IVFLUSH 3 ml QSHIFT BECK Administration Thiamine HCl 100 mg 03/19/20 09:00 03/26/20 08:14 Thiamine Hcl 100 Mg Tablet PO 100 mg DAILY BECK Administration <DARIN Dowd - Last Filed: 03/26/20 12:45> Time Spent With Patient Time: Total time spent is greater than 50% in coordination of care (as documented) at patient's floor/unit and/or counseling patient: <DARIN Dowd - Last Filed: 03/26/20 12:45> Time with patient: 15 - 24 minutes <DARIN Dowd - Last Filed: 03/26/20 12:45>
--- NOTE | 2020-03-26 12:29 | PM.DS ---
DS: Providers Provider Date of admission: 03/18/20 10:33 Primary care physician: Allen Lyons MD Consults: 03/18/20 10:33 Consult to Cardiology Routine Consulting Provider: Chapo Redd Reason for consultation: afib rvr, chf Has provider been notified: No 03/18/20 13:23 Consult to Wound Care Provider Routine Consulting Provider: Manan Rocha Reason for consultation: chronic venous stasis, leg wounds Has provider been notified: No DS: Diagnosis Discharge Diagnosis (1) Chronic venous stasis: Status: Acute (2) Atrial fibrillation: Status: Acute (3) Acute bilateral venous stasis dermatitis: Status: Acute (4) Acute hyperkalemia: Status: Acute (5) Cellulitis: Status: Acute (6) Atrial fibrillation with rapid ventricular response: Status: Acute (7) Heart failure with reduced ejection fraction and diastolic dysfunction: Status: Acute Problem details: last ef reported 45-50%, RV dysfunction DS: Medications Discharge Medications Home Medications: Home Medications Medication Instructions Recorded Confirmed Xarelto 20 mg PO DAILY 02/29/20 02/29/20 bumetanide 2 mg PO BID 03/18/20 03/18/20 metoprolol succinate 100 mg PO BID 03/18/20 03/18/20 atorvastatin 40 mg PO DAILY 03/19/20 03/19/20 Previous Rx's Medication Instructions Recorded digoxin 125 mcg PO DAILY #30 tab 03/26/20 DS: Summary Hospital Course Hospital Course: Patient was admitted for acute on chronic diastolic and systolic CHF complicated by atrial fibrillation with rapid ventricular response, chronic venous stasis with some superficial cellulitis and alcohol dependence with withdrawal. He was given IV Bumex and diuresed well, with 21 L negative. For his AFib, this was difficult to control, he was continued on Toprol 100 b.i.d. he was started on digoxin 0.125 mg daily, he was seen by Cardiology, due to relative hypotension unable to increase beta-marck or calcium channel marck, patient not a good candidate for amiodarone given alcohol use, not a candidate for cardioversion due to noncompliance with Xarelto. Currently patient is still in AFib and low 100s. Relatively asymptomatic. For his alcohol dependence with withdrawal he received phenobarbital withdrawal resolved. His venous stasis improved with diuresis, he received IV Ancef for any superficial cellulitis. Patient will be discharged home with services. Time Spent with Patient Time attestation: Total time spent providing and/or coordinating discharge services: Physical Exam Vital Signs: Vital Signs: Last Vital Signs Temp 98.2 F 03/26/20 11:44 Pulse 98 03/26/20 11:44 Resp 20 03/26/20 11:44 BP 114/62 03/26/20 11:44 Pulse Ox 98 03/26/20 11:44 Body Mass Index 49.3 General: AO X 3, no acute distress Resp: CTA bilateral CVS: S1,S2,RRR, cvhronic venous stasis GI: soft, non tender, non distended Neuro: motor grossly intact Psych: appropriate affect DS: Data Data Completed and Pending Completed studies during hospitalization [Text1]: Procedures Detoxification Services for Substance Abuse Treatment (02/29/20) Labs on day of discharge: 03/18/20 07:04 XR chest 1V Stat Consult Rx EtOH Phenob Dosing 620.8 each MISCELLANE ONCE ONE 03/18/20 07:05 ECG 12 lead EKG Stat EKG Documentation DIRECTED 03/18/20 07:15 0.9 % Sodium Chloride [Ns] 1,000 ml Folic Acid 1 mg Thiamine HCL 100 mg MVI, Adult [Infuvite Adult] 10 ml IV 999 mls/hr 03/18/20 07:31 B Type Natriuretic Peptide Stat Basic Metabolic Panel Stat COVID-19 ID NOW (Saenz) Stat Complete Blood Count Auto Diff Stat Creatine Kinase Total Stat Ethanol Stat Lactic Acid Stat Lipase Stat Liver Panel Stat Magnesium Stat SLIDE REVIEW Stat 03/18/20 07:43 Blood Culture X2 [BC] Stat 03/18/20 08:00 PHENobarbitaL sodium 248 mg IM ONCE@0800 03/18/20 08:42 Sodium Polystyrene Sulfon/Sorb [Kayexalate] 30 gm PO ONCE ONE 03/18/20 08:47 Add Laboratory Test Stat 03/18/20 09:26 dilTIAZem HCL [Cardizem] 30 mg PO ONCE ONE 03/18/20 09:29 dilTIAZem HCL [Cardizem] 15.52 mg IVPUSH ONCE ONE 03/18/20 09:41 Add Laboratory Test Stat 03/18/20 10:16 Transfer Order Routine 03/18/20 10:33 0.9 % Sodium Chloride [Ns] 100 ml dilTIAZem HCL [Cardizem] 125 mg IVCONT 5 mg/hr 03/18/20 10:41 Troponin-I High Sensitivity Stat ~Lactic Acid-LAB USE ONLY Stat 03/18/20 10:45 ceFAZolin Sodium [Ancef] 2 gm 0.9 % Sodium Chloride [Ns] 50 ml IV Q8H 03/18/20 11:00 PHENobarbitaL sodium 186 mg IM 1100,1400 03/18/20 11:09 ceFAZolin Sodium [Ancef] 1 gm .ROUTE .STK-MED ONE dilTIAZem HCL [Cardizem] 125 mg IVCONT .STK-MED ONE 03/18/20 13:15 ED Diet NOW 03/18/20 13:23 EKG Documentation DIRECTED 03/18/20 Lunch Low Sodium Diet 03/18/20 16:05 Basic Metabolic Panel Routine 03/18/20 20:32 ceFAZolin Sodium [Ancef] 1 gm .ROUTE .STK-MED ONE 03/18/20 21:00 Bumetanide [Bumex] 2 mg PO BID 03/18/20 23:13 dilTIAZem HCL [Cardizem] 125 mg IVCONT .STK-MED ONE 03/18/20 23:30 ABG (RT) ONCE 03/18/20 23:43 UA CC w/rflx Micro + Cult Stat 03/19/20 01:25 Venous Blood Gas Stat 03/19/20 04:34 ceFAZolin Sodium [Ancef] 1 gm .ROUTE .STK-MED ONE 03/19/20 06:50 B Type Natriuretic Peptide Routine Basic Metabolic Panel DAILY@0600 Complete Blood Count Auto Diff DAILY@0600 Magnesium Routine SLIDE REVIEW Routine 03/19/20 07:10 dilTIAZem HCL [Cardizem] 125 mg IVCONT .STK-MED ONE 03/19/20 09:00 PHENobarbitaL 60 mg PO BID 03/19/20 09:48 Albuterol/Iprat 2.5/0.5MG 3 ML [Duoneb] 3 ml INHALE RQ4H PRN 03/19/20 11:00 ceFAZolin Sodium/Dextrose,Iso [Ancef] 2 gm in 50 ml IV Q8H 03/19/20 11:12 PHENobarbitaL sodium 160 mg IM STAT STA 03/19/20 12:00 Bumetanide [Bumex] 2 mg IVPUSH BID 03/19/20 15:03 dilTIAZem HCL [Cardizem] 125 mg IVCONT .STK-MED ONE 03/20/20 01:34 dilTIAZem HCL [Cardizem] 125 mg IVCONT .STK-MED ONE 03/20/20 05:48 BMP [Basic Metabolic Panel Fasting] Routine Complete Blood Count Auto Diff Routine Magnesium Routine SLIDE REVIEW Routine 03/20/20 07:45 Glucose, Whole Blood Routine 03/20/20 10:21 dilTIAZem HCL [Cardizem] 125 mg IVCONT .STK-MED ONE 03/20/20 11:17 Glucose, Whole Blood Routine 03/20/20 22:24 dilTIAZem HCL [Cardizem] 125 mg IVCONT .[facility]-MED ONE 03/21/20 08:09 dilTIAZem HCL [Cardizem] 125 mg IVCONT .[facility]-MED ONE 03/21/20 09:00 PHENobarbitaL 30 mg PO BID dilTIAZem HCL CD [Cardizem CD] 180 mg PO DAILY 03/22/20 ECG 12 lead EKG Urgent 03/22/20 09:00 dilTIAZem HCL CD [Cardizem CD] 240 mg PO DAILY dilTIAZem HCL CD [Cardizem CD] 240 mg PO DAILY 03/22/20 09:15 B Type Natriuretic Peptide Urgent Basic Metabolic Panel Urgent Magnesium Urgent 03/22/20 12:30 Digoxin [Lanoxin] 0.25 mg IVPUSH Q6H 03/22/20 12:46 Magnesium Sulfate/H2O 4 gm in 50 ml IV ONCE 03/22/20 12:51 Potassium Chloride ER [Klor-con] 40 meq PO DAILY ONE 03/22/20 13:00 Magnesium Sulfate/H2O 2 gm in 50 ml IV Q1H 03/22/20 20:30 Digoxin [Lanoxin] 0.25 mg IVPUSH Q6H 03/23/20 08:34 Basic Metabolic Panel Routine Complete Blood Count no Diff Routine Magnesium Routine 03/23/20 09:00 PHENobarbitaL 30 mg PO DAILY 03/24/20 10:00 Digoxin [Lanoxin] 0.125 mg PO Q2D 03/24/20 12:30 Digoxin [Lanoxin] 0.125 mg PO DAILY 03/25/20 06:52 Basic Metabolic Panel Routine Complete Blood Count no Diff Routine Magnesium Routine 03/25/20 11:11 Metoprolol Succinate ER [Toprol XL] 50 mg PO ONCE ONE 03/25/20 11:24 Add Laboratory Test Routine 03/26/20 07:50 oxyCODONE HCl Immed Release [Roxicodone] 5 mg PO ONCE ONE Laboratory Last Values WBC 5.4 X10*3/uL (4.8-10.8) 03/25/20 06:52 RBC 3.74 X10*6/uL (4.60-5.80) L 03/25/20 06:52 Hgb 10.4 g/dl (14.0-18.0) L 03/25/20 06:52 Hct 35.1 % (42-52) L 03/25/20 06:52 MCV 93.9 fL (80-98) 03/25/20 06:52 MCH 27.8 pg (27.0-33.0) 03/25/20 06:52 MCHC 29.6 g/dl (31.0-36.0) L 03/25/20 06:52 RDW 16.8 % (11.0-16.0) H 03/25/20 06:52 Plt Count 271 X10*3/uL (160-400) 03/25/20 06:52 MPV 9.3 fL (9.4-12.4) L 03/25/20 06:52 Immature Gran % (Auto) 0.6 % (0.0-0.4) H 03/20/20 05:48 Neut % (Auto) 69.4 % (45-73) 03/20/20 05:48 Lymph % (Auto) 11.4 % (20-40) L 03/20/20 05:48 [place] % (Auto) 14.6 % (2-11) H 03/20/20 05:48 Eos % (Auto) 3.4 % (0-4) 03/20/20 05:48 Baso % (Auto) 0.6 % (0-2) 03/20/20 05:48 Lymph # (Auto) 0.6 X10*3/uL (1.2-4.9) L 03/20/20 05:48 [place] # (Auto) 0.7 X10*3/uL (0.1-1.2) 03/20/20 05:48 Eos # (Auto) 0.2 X10*3/uL (0.0-0.4) 03/20/20 05:48 Baso # (Auto) 0.0 X10*3/uL (0.0-0.2) 03/20/20 05:48 Abs Immat Gran (auto) 0.03 X10*3/uL (0.00-0.03) 03/20/20 05:48 Absolute Neuts (auto) 3.5 X10*3/uL (2.0-8.3) 03/20/20 05:48 Absolute Nucleated RBC 0.000 X10*3/uL (0.0-0.012) 03/25/20 06:52 Nucleated RBC % (auto) 0.0 /100WBC (0.0-0.2) 03/25/20 06:52 Smear Tech's Comments VERIFIED 03/20/20 05:48 VBG pH 7.42 (7.32-7.43) 03/19/20 01:25 VBG pCO2 50 mmhg 03/19/20 01:25 VBG pO2 59 mmhg 03/19/20 01:25 VBG HCO3 32 mmol/L 03/19/20 01:25 VBG O2 Saturation 88.5 % 03/19/20 01:25 VBG Base Excess 6.0 mmol/L 03/19/20 01:25 Sodium 139 mmol/L (135-145) 03/25/20 06:52 Potassium 3.5 mmol/l (3.3-5.1) 03/25/20 06:52 Chloride 93 mmol/L (96-108) L 03/25/20 06:52 Carbon Dioxide 39 mmol/L (22-29) H 03/25/20 06:52 Anion Gap 11 (12-20) L 03/25/20 06:52 BUN 8 mg/dL (9-16) L 03/25/20 06:52 Creatinine 0.62 mg/dL (0.5-1.4) 03/25/20 06:52 Estim Creat Clear Calc 201.6 03/25/20 06:52 Estimated GFR > 60 03/25/20 06:52 POC Glucose 119 mg/dL (60-115) H 03/20/20 11:17 Random Glucose 128 mg/dL (60-115) H 03/25/20 06:52 Fasting Glucose 95 mg/dL (60-99) 03/20/20 05:48 Lactic Acid 2.2 mmol/L (0.5-2.0) H* 03/18/20 07:31 Lactic Acid Fup @ 2Hr 2.1 mmol/L (0.5-2.0) H* 03/18/20 10:41 Calcium 8.0 mg/dL (8.4-10.2) L 03/25/20 06:52 Magnesium 1.7 mg/dL (1.6-2.6) 03/25/20 06:52 Total Bilirubin 0.5 mg/dL (0.0-1.0) 03/18/20 07:31 Direct Bilirubin 0.3 mg/dL (0.0-0.5) 03/18/20 07:31 AST 22 U/L (5-37) 03/18/20 07:31 ALT 12 U/L (0-40) 03/18/20 07:31 Alkaline Phosphatase 237 U/L (39-117) H D 03/18/20 07:31 Total Creatine Kinase 55 U/L (38-174) 03/18/20 07:31 Troponin I High Sens < 3.5 ng/L (<3.5-35.0) 03/18/20 10:41 B-Natriuretic Peptide 378 pg/mL (<100) H 03/22/20 09:15 Total Protein 7.0 g/dL (6.5-8.0) 03/18/20 07:31 Albumin 2.9 g/dL (3.5-5.0) L 03/18/20 07:31 Lipase 65 U/L (8-78) 03/18/20 07:31 Urine Color YELLOW 03/18/20 23:43 Urine Appearance CLEAR 03/18/20 23:43 Urine pH 6.0 (5.0-8.0) 03/18/20 23:43 Ur Specific [place] >= 1.030 (1.005-1.025) H 03/18/20 23:43 Urine Protein TRACE MG/DL (NEG-TRACE) 03/18/20 23:43 Urine Glucose (UA) NEG MG/DL (NEG) 03/18/20 23:43 Urine Ketones NEG MG/DL (NEG) 03/18/20 23:43 Urine Blood NEG (NEG) 03/18/20 23:43 Urine Nitrite NEG (NEG) 03/18/20 23:43 Ur Leukocyte Esterase NEG (NEG) 03/18/20 23:43 Ethyl Alcohol 284 mg/dL 03/18/20 07:31 COVID-19 (JAYNE) Negative (Negative) 03/18/20 07:31 COVID-19 Clin Com See Note 03/18/20 07:31 Discharge Plan Discharge Patient Disposition: Home Health Service Referrals: [email or web address] [Outside] Allen Lyons MD [Primary Care Provider] - 1 Week (04/09/2020 1PM Please call and reschedule if you can't keep this appointment.) Discharge Medications: New digoxin 125 mcg (0.125 mg) Tablet 125 mcg PO DAILY Qty: 30 RF: 0 Continued Xarelto 20 mg Tablet 20 mg PO DAILY RF: 0 bumetanide 2 mg tablet 2 mg PO BID RF: 0 metoprolol succinate 100 mg tablet extended release 24 hr 100 mg PO BID RF: 0 atorvastatin 40 mg tablet 40 mg PO DAILY RF: 0 Discontinued diltiazem HCl [DILT-XR] 240 mg capsule,ext.rel 24h degradable 240 mg PO BID RF: 0 levofloxacin 750 mg tablet 750 mg PO DAILY RF: 0 Discharge Orders: Discharge Order (Routine); Ordered 03/26/20 Ordered By: Wolf Thomas Diet: advance to usual diet Activity on Discharge: As tolerated Discharge Date/Time: 03/26/20 14:39 Visit Report Forms: Patient Portal Discharge page Care Plan Goals: [facility] Concerns: CHF and AFib, chronic venous stasis Plan of Treatment: Started on digoxin, Cardizem discontinued, avoid alcohol
--- NOTE | 2020-03-26 13:03 | MHC.CM.PN ---
Patient has been medically cleared for dc to home today with [facility]. [facility] has been notified of today's dc.
--- NOTE | 2020-03-26 14:39 | MHC.CM.PN ---
ROSARIO returned a call to Yulissa at [facility] @ [phone], Ext. [phone], but was only able to leaver a message. ROSARIO encouraged Yulissa to reach out to Patient's Nurse/Greta if she has any clinical questions.
== END 2020-03-26 14:39 | disposition home health service (06) | DRG 194 ==
LOC: HO.ED 10:09 → HO.IMC 03-19 06:05
PROVIDERS: Internal Medicine; Nurse Practitioner Family; Physician Assistant Medical; Admitting Provider Internal Medicine; Emergency Provider Emergency Medicine; PCP Internal Medicine; Visit Provider Internal Medicine
DX: I11.0 Hypertensive heart disease with heart failure (principal); E87.2 Acidosis; E87.3 Alkalosis; I27.29 Other secondary pulmonary hypertension; E66.2 Morbid (severe) obesity with alveolar hypoventilation; E87.5 Hyperkalemia; L03.115 Cellulitis of right lower limb; Z99.81 Dependence on supplemental oxygen; I50.43 Acute on chronic combined systolic (congestive) and diastolic (congestive) heart failure; I48.91 Unspecified atrial fibrillation; F10.239 Alcohol dependence with withdrawal, unspecified; Z68.42 Body mass index [BMI] 45.0-49.9, adult; I50.810 Right heart failure, unspecified; E78.5 Hyperlipidemia, unspecified; J44.9 Chronic obstructive pulmonary disease, unspecified; I87.333 Chronic venous hypertension (idiopathic) with ulcer and inflammation of bilateral lower extremity; L97.929 Non-pressure chronic ulcer of unspecified part of left lower leg with unspecified severity; L03.116 Cellulitis of left lower limb; L97.919 Non-pressure chronic ulcer of unspecified part of right lower leg with unspecified severity; Y90.8 Blood alcohol level of 240 mg/100 ml or more; Z20.828 Contact with and (suspected) exposure to other viral communicable diseases; Z91.19 Patient's noncompliance with other medical treatment and regimen; R94.31 Abnormal electrocardiogram [ECG] [EKG]; F17.210 Nicotine dependence, cigarettes, uncomplicated; Z71.6 Tobacco abuse counseling; Z99.89 Dependence on other enabling machines and devices; Z79.01 Long term (current) use of anticoagulants; Z79.899 Other long term (current) drug therapy
CPT/HCPCS: 36415; 71045; 80048; 80076; 80320; 81003; 82550; 82803; 82947; 83605; 83690; 83735; 83880; 84484; 85025; 85027; 87040; 87635; 93005; 94640; 96365; 96372; 96375; 97110; 97116; 97162; 97530; 99285; 99291; J0690; J1160; J2560; J3411; J3475

== ENCOUNTER → 2020-03-28 11:06 | Outpatient (REF) | payer OTHER, SELFPAY ==
--- NOTE | 2020-03-28 11:10 | CA_ITS ---
Transthoracic Echocardiogram Patient (Last, First, Middle): Martin Pearce E Gender: Male Date of : 1960 Age: 60 Procedure Date: 03/28/2020 Procedure Type: Transthoracic Echocardiogram Location: OP Height: 182.88 cm Weight: 136.08 kg BSA: 2.53 m2 Heart Rate: bpm BP: 110 / 60 mmHg Media Relations Coordinator: SERENA Macdonald MD: Genie Esteban NP-Jorge Human Factors Advisor Lead: Nayan Cao MD Symptoms: I48.91 - Unspecified atrial fibrillation Study Quality: Technically Difficult ECG Rhythm: Atrial Fibrillation with rapid ventricular respons Conclusions: - 1. Left ventricular systolic function is difficult to assess 2. Severely increased right ventricular size 3. At least moderate tricuspid regurgitation 4. Moderately elevated right ventricular systolic pressure and significantly elevated right atrial pressures 5. No gross pericardial effusion Findings Left Ventricle Normal left ventricular cavity size. Right Ventricle Severely increased right ventricular cavity size. Atria Severe biatrial enlargement. Aortic Valve The aortic valve was not well visualized. There is no aortic valve stenosis. Mitral Valve There is mild anterior and moderate posterior mitral leaflet thickening. There is no mitral valve stenosis. Pulmonic Valve The pulmonic valve was not well visualized. Tricuspid Valve There is moderate tricuspid valve regurgitation. Significantly elevated right atrial pressure. Moderate pulmonary hypertension is present. Great Vessels The aorta was not well visualized. The pulmonary artery was not well visualized. Venous The inferior vena cava is severely dilated and does not collapse with inspiration. Pericardium/Pleural There is no evidence of pericardial effusion. Prior Study Comparison Difficult to compare to prior study due to poor present study. Patient was in atrial fibrillation rapid ventricular response with shortness of breath. He declined to go to the emergency room Measurements 2D Linear Measurements RVIDd: 5.50 RVIDd Index: 2.17 IVSd: 0.86 0.6-0.9/0.6-1.0 cm LVIDd: 6.68 3.9-5.3/4.2-5.9 cm LVIDd Index: 2.64 2.4-3.2/2.2-3.1 cm/m2 LVIDs: 5.03 2.0-3.6 cm LVPWd: 1.39 0.7-1.1 cm LV Mass: 430.36 67-162/88-224 g LV Mass Index: 170.10 43-95/49-115 g/m2 Tricuspid Valve TR Pk Cade: 2.87 TR Pk Grad: 33.00 RA Press: 15.00 RVSP: 48.00 Updated in Other Vendor System with Status of Final Nayan Cao MD electronically signed on 03/29/2020 1:51:39 PM with status of Final
== END ==
LOC: HO.CARD 11:06
PROVIDERS: Visit Provider Nurse Practitioner Family
DX: I48.91 Unspecified atrial fibrillation (principal)
CPT/HCPCS: 93306

== ENCOUNTER 2021-02-15 01:58 | Inpatient (IN) | payer MEDICARE, SELFPAY ==
[2021-02-15] VITALS (20 sets, daily range): BP systolic 45–136; BP diastolic 33–100; PULSE 116–155; RESP 10–29; TEMP 31.1–36.3; O2SAT 68–94; BMI 45.4; BMI 48.1
--- NOTE | ~2021-02-15 | CT_ITS ---
EXAMINATION: CT HEAD WITHOUT CONTRAST CLINICAL INFORMATION: Fall. On blood thinners. COMPARISON: 02/29/2020 TECHNIQUE: Contiguous axial imaging was performed from the skull base to vertex without intravenous contrast. This CT examination was performed using dose optimization techniques as appropriate, variously including the following: * Automated exposure control * Adjustment of mA and/or kV according to patient size (this includes techniques or standardized protocols for targeted exams where dose is matched to indication/reason for exam; i.e. extremities or head) Use of iterative reconstruction technique DLP: 2564 mGy-cm. FINDINGS: Motion limited evaluation. There is no evidence of acute intracranial hemorrhage or territorial infarction. No abnormal mass effect or midline shift is seen. Duke to white matter differentiation is well preserved. No extra-axial fluid collections are identified. No hydrocephalus. No significant volume loss. There is no abnormal attenuation within the brain parenchyma. The osseous structures and soft tissues are normal. The mastoid air cells and visualized portions of the paranasal sinuses are well aerated. CT/CT head/brain wo con IMPRESSION: Motion limited evaluation. No acute intracranial pathology.
--- NOTE | ~2021-02-15 | CT_ITS ---
EXAMINATION: CT CHEST WITHOUT CONTRAST CT ABDOMEN AND PELVIS WITHOUT CONTRAST CLINICAL INFORMATION: Increasing shortness of breath. Nausea and vomiting. Abdominal pain. COMPARISON: Prior chest radiograph from 02/29/2020. No prior CT. TECHNIQUE: Multidetector volumetric imaging was performed through the chest, abdomen and pelvis without contrast. Sagittal and coronal reformatted images were obtained on the technologist's workstation. Axial MIP volume rendering provided. This CT examination was performed using dose optimization techniques as appropriate, variously including the following: *Automated exposure control *Adjustment of mA and/or kV according to patient size (this includes techniques or standardized protocols for targeted exams where dose is matched to indication/reason for exam; i.e. extremities or head) *Use of iterative reconstruction technique DLP: 2358 mGy-cm. FINDINGS: The examination is significantly limited by motion. CHEST: Lungs: The central airways are patent. Bilateral airspace opacities are seen, greatest at the left mid to upper lung in the right mid to lower lung. No pleural effusion or pneumothorax. Evaluation for subtle pulmonary nodules cannot be performed due to the motion on the study. Mediastinum: The heart is of normal size. There is no pericardial effusion. Central vascular structures are unremarkable. Aortic calcifications. No hilar or mediastinal lymphadenopathy. Chest Wall/Axilla: No lymphadenopathy. No chest wall mass. ABDOMEN/PELVIS: Liver, Gallbladder, Biliary Tree: Prominent liver. Normal shape of the liver. Diffusely decreased attenuation. There is a 1.9 cm area of focally increased attenuation in segment 8/4b. No biliary ductal dilatation is present. The gallbladder is unremarkable with no evidence of radiopaque gallstones, gallbladder wall thickening, or pericholecystic inflammatory changes. Pancreas: Unremarkable. Spleen: Unremarkable. Adrenal Glands: Unremarkable. Kidneys and Ureters: The kidneys are normal in size, shape, and attenuation. No hydronephrosis, hydroureter or calculi seen. No perinephric stranding. Exophytic cyst at the midpole of the right kidney. No follow-up imaging recommended. Bladder: Decompressed with a Peters catheter in place. Gastrointestinal Tract: The stomach and small bowel appear unremarkable. No dilated loops of bowel or evidence of obstruction. No diverticulosis. No colonic wall thickening or adjacent inflammatory changes. No free air or free fluid. The appendix is unremarkable. Abdominal Wall: No hernia is demonstrated. Lymphovascular Structures: Lymph nodes: Normal. Vascular: Normal caliber aorta with moderate atherosclerotic calcification. Pelvic Viscera: The prostate and seminal vesicles are unremarkable. OSSEOUS STRUCTURES: No suspicious sclerotic or lytic bone lesions are identified. Degenerative changes are mild throughout the spine. Mild degenerative changes of the hips. CT/CT abdomen pelvis wo con IMPRESSION: Study significantly limited due to motion. 1. Bilateral lung opacities, which could be infectious or inflammatory. 2. Hepatic steatosis. 3. No acute abnormalities are seen within the abdomen or pelvis.
--- NOTE | 2021-02-15 02:09 | ECG_ITS ---
Test Reason : SOB,FALL Blood Pressure : / mmHG Vent. Rate : 123 BPM Atrial Rate : 000 BPM P-R Int : 000 ms QRS Dur : 152 ms QT Int : 334 ms P-R-T Axes : 000 056 015 degrees QTc Int : 478 ms Atrial fibrillation with rapid ventricular response Right bundle branch block ST depression in Lateral leads Abnormal ECG When compared with ECG of 22-MAR-2020 10:57, No significant change was found Referred By: Kecia Valenzuela Electronically Signed By:MOHAN JANG MD
--- NOTE | 2021-02-15 02:12 | ED.SOB ---
HPI - SOB/Dyspnea General Chief Complaint: Fall Stated Complaint: sob, ankle pain due to fall Time Seen by Provider: 02/15/21 02:02 Source: patient and EMS Mode of arrival: EMS History of Present Illness HPI Narrative: 61-year-old male with multiple medical comorbidities, of note COPD requiring home oxygen/atrial fibrillation on anticoagulation/alcohol dependence, every day smoker who is brought in by EMS for patient's state fall at home without head strike or LOC Patient reports some mild dizziness prior to the fall. Patient states he has had a cough for a while now and states he has had chest discomfort for approximately 1 month. When asked about the open wounds across his chest/back/arms patient states that he scratches himself. EMS endorses the patient was not on his home oxygen on arrival. Related Data Previous Rx's Medication Instructions Recorded rivaroxaban 20 mg tablet (Xarelto) 20 mg PO DAILY #90 tab 04/17/20 metoprolol succinate 100 mg 100 mg PO BID #180 tab 05/12/20 tablet,extended release 24 hr bumetanide 2 mg tablet 2 mg PO BID #180 tab 09/07/20 digoxin 125 mcg (0.125 mg) tablet 125 mcg PO DAILY #90 tab 09/09/20 atorvastatin 40 mg tablet 40 mg PO DAILY #90 tab 12/03/20 Allergies Allergy/AdvReac Type Severity Reaction Status Date / Time No Known Allergies Allergy Verified 04/17/20 04:45 [No Known Allergies*] Review of Systems Review of Systems: Pertinent positives and negatives as stated in HPI 10 point review of systems is otherwise negative. [facility] Past Medical History Source: nursing notes reviewed Medical History Afib Alcohol dependence Cellulitis Chronic respiratory failure with hypoxia COPD (chronic obstructive pulmonary disease) Heart failure with reduced ejection fraction and diastolic dysfunction Hypercholesteremia Hyperlipemia Hypertension Morbid obesity Obesity hypoventilation syndrome Venous stasis dermatitis Surgical History No pertinent past surgical history Social History Social History Household Members: None Housing: Apartment Do you presently have visiting nurse or other home services: No Alcohol intake: current Alcohol intake frequency: 3 or more drinks per day Cigarette Packs Per Day: 1 Cigarettes Per Day: 20.0 Years Smoked: 40 Advance Directives: No Advance Directives Information Provided: No service: No Current occupational status: disabled Physical Exam Vital Signs: Vital Signs: Last Vital Signs Temp 93 F L 02/15/21 06:00 Pulse 128 H 02/15/21 06:00 Resp 20 02/15/21 06:00 BP 81/51 L 02/15/21 06:01 Pulse Ox 91 L 02/15/21 06:23 Oxygen Flow Rate 3 02/15/21 02:08 Body Mass Index 45.4 VITAL SIGNS: Reviewed. GENERAL: Obese,Chronically ill, appears older than stated age, unkempt, poor hygiene HEAD: Normocephalic/atraumatic EYES: PERRLA, EOMI OROPHARYNX: no oral lesions noted, posterior pharynx clear, dry mucosa NECK: Supple, no adenopathy LUNGS: Decreased breath sounds bibasilar, mild rales noted, increased work of breathing with tachypnea. SpO2<90> on 3.5 L nasal cannula CARDIOVASCULAR: Regular rate and rhythm without noted murmurs, no JVD ABDOMEN: Obese, Soft, non-tender, non-distended with bowel sounds. MUSCULOSKELETAL: No tenderness, deformities, or effusions noted on gross inspection. EXTREMITIES: Significant bilateral lower extremity enlargement with lymphedema appearance in combination, stigmata of venous stasis as well as open areas of skin SKIN: Inspection of the skin reveals no rashes, but noted multiple healing scabs to bilateral upper extremities/back/upper chest without surrounding erythema/induration/drainage NEUROLOGIC: Alert and oriented x 4. Course Course Course Narrative: 0235: 61-year-old male with history and clinical presentation consistent with fall and given he is on anticoagulation he will undergo CT of the head, he is noted to be in atrial fibrillation with RVR (no acute EKG changes when compared to prior), otherwise oxygenation will be evaluated for evidence of CHF/COPD. Ultimately, patient will be admitted. 0315: Review of initial investigations there is no evidence to suggest COPD exacerbation, pH is noted to be acidotic and likely secondary to lactic acidosis from severe sepsis unknown source at this time, but legs are suspected. Patient was started on a bicarb drip, antibiotics were administered, and 1 L of IV fluids with careful monitoring blood pressure, patient is noted to be hypothermic as measured by temperature sensing Peters catheter. Patient is noted to be in atrial fibrillation with RVR but withholding rate control at this time given suspicion for severe sepsis. On review all investigations patient may have combination etiology for sepsis to include pneumonia (given alcohol dependence and reported history of vomiting on Thursday may consider aspiration) as well as lower extremity cellulitis. On review of CT scan the Peters catheter appears to be in good place with a decompressed bladder but no urine output. I discussed this case with the plastic printer who accepts admission and recommends evaluation IVC and agrees with pursuing ABG. Unfortunately, attempts to identify IVC were technically difficult and although patient was noted to be hypotensive on repeat blood pressure he remained interactive and verbally appropriate. Patient received 2 L IV fluid as well as receiving bicarb drip. Suspect patient is combination of alcoholic ketoacidosis and severe sepsis. MDM - SOB/Dyspnea Lab Data Result diagrams: 02/15/21 02:32 02/15/21 02:27 Labs: Lab Results 02/15/21 02/15/21 02/15/21 Range/Units 02:27 02:27 02:27 WBC (4.8-10.8) X10*3/uL RBC (4.60-5.80) X10*6/uL Hgb (14.0-18.0) g/dl Hct (42.0-52.0) % MCV (80.0-98.0) fL MCH (27.0-33.0) pg MCHC (31.0-36.0) g/dl RDW (11.0-16.0) % Plt Count (160-400) X10*3/uL MPV (9.4-12.4) fL Immature Gran % (Auto) (0.0-0.4) % Neut % (Auto) (45-73) % Lymph % (Auto) (20-40) % [place] % (Auto) (2-11) % Eos % (Auto) (0-4) % Baso % (Auto) (0-2) % Lymph # (Auto) (1.2-4.9) X10*3/uL [place] # (Auto) (0.1-1.2) X10*3/uL Eos # (Auto) (0.0-0.4) X10*3/uL Baso # (Auto) (0.0-0.2) X10*3/uL Abs Immat Gran (auto) (0.00-0.03) X10*3/uL Absolute Neuts (auto) (2.0-8.3) x10*3/uL Absolute Nucleated RBC (0.0-0.012) X10*3/uL Nucleated RBC % (auto) (0.0-0.2) /100WBC Smear Tech's Comments PT (9.9-13.0) SEC INR (0.9-1.1) VBG pH VBG pCO2 VBG pO2 VBG HCO3 VBG O2 Saturation VBG Base Excess Sodium 128 L (135-145) mmol/L Potassium 5.2 H (3.3-5.1) mmol/L Chloride 95 L (96-108) mmol/L Carbon Dioxide 5 L* D (22-29) mmol/L Anion Gap 33 H (12-20) BUN 33 H D (9-16) mg/dL Creatinine 4.79 H* (0.5-1.4) mg/dL Estim Creat Clear Calc 24.5 Estimated GFR 12 Random Glucose 104 (60-115) mg/dL Lactic Acid (0.5-2.0) mmol/L Calcium 9.3 D (8.4-10.2) mg/dL Magnesium 2.5 (1.6-2.6) mg/dL Total Bilirubin 0.9 (0.0-1.0) mg/dL AST 55 H (5-37) U/L ALT 61 H (0-40) U/L Alkaline Phosphatase 434 H D (39-117) U/L Troponin I High Sens 5.9 (<3.5-35.0) ng/L B-Natriuretic Peptide 123 H (<100) pg/mL Total Protein 7.2 (6.5-8.0) g/dL Albumin 1.8 L D (3.5-5.0) g/dL Lipase 259 H (8-78) U/L Ethyl Alcohol mg/dL COVID-19 (JAYNE) Negative (Negative) COVID-19 Clin Com See Note Blood Type Antibody Screen 02/15/21 02/15/21 02/15/21 Range/Units 02:31 02:32 02:32 WBC 17.5 H (4.8-10.8) X10*3/uL RBC 3.32 L (4.60-5.80) X10*6/uL Hgb 11.3 L (14.0-18.0) g/dl Hct 38.7 L (42.0-52.0) % MCV 116.6 H (80.0-98.0) fL MCH 34.0 H (27.0-33.0) pg MCHC 29.2 L (31.0-36.0) g/dl RDW 21.9 H (11.0-16.0) % Plt Count 297 (160-400) X10*3/uL MPV 8.9 L (9.4-12.4) fL Immature Gran % (Auto) 2.9 H (0.0-0.4) % Neut % (Auto) 83.3 H (45-73) % Lymph % (Auto) 5.0 L (20-40) % [place] % (Auto) 8.6 (2-11) % Eos % (Auto) 0.1 (0-4) % Baso % (Auto) 0.1 (0-2) % Lymph # (Auto) 0.9 L (1.2-4.9) X10*3/uL [place] # (Auto) 1.5 H (0.1-1.2) X10*3/uL Eos # (Auto) 0.0 (0.0-0.4) X10*3/uL Baso # (Auto) 0.0 (0.0-0.2) X10*3/uL Abs Immat Gran (auto) 0.51 H (0.00-0.03) X10*3/uL Absolute Neuts (auto) 14.5 H (2.0-8.3) x10*3/uL Absolute Nucleated RBC 0.370 H (0.0-0.012) X10*3/uL Nucleated RBC % (auto) 2.1 H (0.0-0.2) /100WBC Smear Tech's Comments VERIFIED PT 18.2 H (9.9-13.0) SEC INR 1.6 H (0.9-1.1) VBG pH Cancelled VBG pCO2 Cancelled VBG pO2 Cancelled VBG HCO3 Cancelled VBG O2 Saturation Cancelled VBG Base Excess Cancelled Sodium (135-145) mmol/L Potassium (3.3-5.1) mmol/L Chloride (96-108) mmol/L Carbon Dioxide (22-29) mmol/L Anion Gap (12-20) BUN (9-16) mg/dL Creatinine (0.5-1.4) mg/dL Estim Creat Clear Calc Estimated GFR Random Glucose (60-115) mg/dL Lactic Acid (0.5-2.0) mmol/L Calcium (8.4-10.2) mg/dL Magnesium (1.6-2.6) mg/dL Total Bilirubin (0.0-1.0) mg/dL AST (5-37) U/L ALT (0-40) U/L Alkaline Phosphatase (39-117) U/L Troponin I High Sens (<3.5-35.0) ng/L B-Natriuretic Peptide (<100) pg/mL Total Protein (6.5-8.0) g/dL Albumin (3.5-5.0) g/dL Lipase (8-78) U/L Ethyl Alcohol mg/dL COVID-19 (JAYNE) (Negative) COVID-19 Clin Com Blood Type Antibody Screen 02/15/21 02/15/21 02/15/21 Range/Units 02:32 02:33 02:35 WBC (4.8-10.8) X10*3/uL RBC (4.60-5.80) X10*6/uL Hgb (14.0-18.0) g/dl Hct (42.0-52.0) % MCV (80.0-98.0) fL MCH (27.0-33.0) pg MCHC (31.0-36.0) g/dl RDW (11.0-16.0) % Plt Count (160-400) X10*3/uL MPV (9.4-12.4) fL Immature Gran % (Auto) (0.0-0.4) % Neut % (Auto) (45-73) % Lymph % (Auto) (20-40) % [place] % (Auto) (2-11) % Eos % (Auto) (0-4) % Baso % (Auto) (0-2) % Lymph # (Auto) (1.2-4.9) X10*3/uL [place] # (Auto) (0.1-1.2) X10*3/uL Eos # (Auto) (0.0-0.4) X10*3/uL Baso # (Auto) (0.0-0.2) X10*3/uL Abs Immat Gran (auto) (0.00-0.03) X10*3/uL Absolute Neuts (auto) (2.0-8.3) x10*3/uL Absolute Nucleated RBC (0.0-0.012) X10*3/uL Nucleated RBC % (auto) (0.0-0.2) /100WBC Smear Tech's Comments PT (9.9-13.0) SEC INR (0.9-1.1) VBG pH 7.03 L* VBG pCO2 30 VBG pO2 43 VBG HCO3 8 L VBG O2 Saturation 54.0 VBG Base Excess -21.1 Sodium (135-145) mmol/L Potassium (3.3-5.1) mmol/L Chloride (96-108) mmol/L Carbon Dioxide (22-29) mmol/L Anion Gap (12-20) BUN (9-16) mg/dL Creatinine (0.5-1.4) mg/dL Estim Creat Clear Calc Estimated GFR Random Glucose (60-115) mg/dL Lactic Acid 11.7 H* (0.5-2.0) mmol/L Calcium (8.4-10.2) mg/dL Magnesium (1.6-2.6) mg/dL Total Bilirubin (0.0-1.0) mg/dL AST (5-37) U/L ALT (0-40) U/L Alkaline Phosphatase (39-117) U/L Troponin I High Sens (<3.5-35.0) ng/L B-Natriuretic Peptide (<100) pg/mL Total Protein (6.5-8.0) g/dL Albumin (3.5-5.0) g/dL Lipase (8-78) U/L Ethyl Alcohol < 10 mg/dL COVID-19 (JAYNE) (Negative) COVID-19 Clin Com Blood Type Antibody Screen 02/15/21 Range/Units 04:20 WBC (4.8-10.8) X10*3/uL RBC (4.60-5.80) X10*6/uL Hgb (14.0-18.0) g/dl Hct (42.0-52.0) % MCV (80.0-98.0) fL MCH (27.0-33.0) pg MCHC (31.0-36.0) g/dl RDW (11.0-16.0) % Plt Count (160-400) X10*3/uL MPV (9.4-12.4) fL Immature Gran % (Auto) (0.0-0.4) % Neut % (Auto) (45-73) % Lymph % (Auto) (20-40) % [place] % (Auto) (2-11) % Eos % (Auto) (0-4) % Baso % (Auto) (0-2) % Lymph # (Auto) (1.2-4.9) X10*3/uL [place] # (Auto) (0.1-1.2) X10*3/uL Eos # (Auto) (0.0-0.4) X10*3/uL Baso # (Auto) (0.0-0.2) X10*3/uL Abs Immat Gran (auto) (0.00-0.03) X10*3/uL Absolute Neuts (auto) (2.0-8.3) x10*3/uL Absolute Nucleated RBC (0.0-0.012) X10*3/uL Nucleated RBC % (auto) (0.0-0.2) /100WBC Smear Tech's Comments PT (9.9-13.0) SEC INR (0.9-1.1) VBG pH VBG pCO2 VBG pO2 VBG HCO3 VBG O2 Saturation VBG Base Excess Sodium (135-145) mmol/L Potassium (3.3-5.1) mmol/L Chloride (96-108) mmol/L Carbon Dioxide (22-29) mmol/L Anion Gap (12-20) BUN (9-16) mg/dL Creatinine (0.5-1.4) mg/dL Estim Creat Clear Calc Estimated GFR Random Glucose (60-115) mg/dL Lactic Acid (0.5-2.0) mmol/L Calcium (8.4-10.2) mg/dL Magnesium (1.6-2.6) mg/dL Total Bilirubin (0.0-1.0) mg/dL AST (5-37) U/L ALT (0-40) U/L Alkaline Phosphatase (39-117) U/L Troponin I High Sens (<3.5-35.0) ng/L B-Natriuretic Peptide (<100) pg/mL Total Protein (6.5-8.0) g/dL Albumin (3.5-5.0) g/dL Lipase (8-78) U/L Ethyl Alcohol mg/dL COVID-19 (JAYNE) (Negative) COVID-19 Clin Com Blood Type A Negative Antibody Screen NEGATIVE ECG Data Attestation: I personally reviewed and interpreted this ECG as follows: Prior ECG tracings: available for review (03/22/2020 no acute changes on comparison) Interpretation: Atrial fibrillation with RVR, HR-123, no STEMI, Critical Care Time Critical Care Time Critical Care Time: Yes Total Critical Care Time: 45 Attestation: I personally attest to this time spent taking care of the patient. Discharge Plan Discharge Clinical Impression: IFRAH (acute kidney injury), Alcoholic ketoacidosis, Severe sepsis Patient Disposition: Admitted As Inpatient Interventions: Admission Worksheet (ED) Last Done: 02/15/21 06:20 Discharge Date/Time: 02/15/21 05:21
[2021-02-15 02:40] LABS: Basophils Percent Auto 0.1 % (0-2); Eosinophils Percent Auto 0.1 % (0-4); Hematocrit 38.7 % (42.0-52.0); Hemoglobin 11.3 g/dl (14.0-18.0); Imm Gran Abs Auto 0.51 X10*3/uL (0.00-0.03); Imm Gran Pct Auto 2.9 % (0.0-0.4); Lymphocytes Absolute Auto 0.9 X10*3/uL (1.2-4.9); MANUAL DIFF FLAG SCAN; Mean Corpuscular HGB Conc 29.2 g/dl (31.0-36.0); Mean Platelet Volume 8.9 fL (9.4-12.4); Monocytes Absolute Auto 1.5 X10*3/uL (0.1-1.2); Monocytes Percent Auto 8.6 % (2-11); Neutrophils Absolute Auto 14.5 x10*3/uL (2.0-8.3); Neutrophils Percent Auto 83.3 % (45-73); Platelet Count 297 X10*3/uL (160-400); Red Blood Count 3.32 X10*6/uL (4.60-5.80); Red Cell Distribution Width 21.9 % (11.0-16.0); SCAN SMEAR FLAG 1; White Blood Count 17.5 X10*3/uL (4.8-10.8)
[2021-02-15 02:42] LABS: Venous Blood Gas Refer to POC result
[2021-02-15 02:43] LABS: VBG Base Excess -21.1 mmol/L; VBG HCO3 8 mmol/L (22-26); VBG pCO2 30 mmHg; VBG pH 7.03 (7.32-7.43); VBG pO2 43 mmHg
[2021-02-15 02:46] LABS: INTERNATIONAL NORM RATIO 1.6 (0.9-1.1); Prothrombin Time 18.2 SEC (9.9-13.0)
[2021-02-15 02:53] LABS: Ethanol < 10 mg/dL
[2021-02-15 02:56] LABS: B Type Natriuretic Peptide 123 pg/mL (<100); Troponin-I High Sensitivity 5.9 ng/L (<3.5-35.0)
[2021-02-15 02:59] LABS: Mean Corpuscular Volume 116.6 fL (80.0-98.0); NRBC Pct Auto 2.1 /100WBC (0.0-0.2)
[2021-02-15 03:00] LABS: SLIDE REVIEW VERIFIED
[2021-02-15 03:06] LABS: COVID-19 Test Negative (Negative); IDNOW Serial# 55D5AD1C
[2021-02-15 03:07] LABS: Lactic Acid 11.7 mmol/L (0.5-2.0)
[2021-02-15 03:07] LABS: Alanine Aminotransferase 61 U/L (0-40); Albumin Level 1.8 g/dL (3.5-5.0); Alkaline Phosphatase 434 U/L (39-117); Anion Gap 33 (12-20); Aspartate Amino Transferase 55 U/L (5-37); Bilirubin Total 0.9 mg/dL (0.0-1.0); Blood Urea Nitrogen 33 mg/dL (9-16); Calcium 9.3 mg/dL (8.4-10.2); Carbon Dioxide 5 mmol/L (22-29); Chloride 95 mmol/L (96-108); Creatinine Clr Calc Pharmacy 24.5; Estimated Glomerular Filt Rate 12; Glucose Random 104 mg/dL (60-115); Lipase 259 U/L (8-78); Magnesium 2.5 mg/dL (1.6-2.6); Potassium 5.2 mmol/L (3.3-5.1); Sodium 128 mmol/L (135-145); Total Protein 7.2 g/dL (6.5-8.0)
[2021-02-15] MEDS: cefEPime HCl 2 GM in 0.9 % Sodium Chloride 50 ML IV (03:12)
[2021-02-15] MEDS: Sodium Bicarbonate 8.4% 100 MEQ in Dextrose 5 % 900 ML 150 MEQ IV (03:57)
[2021-02-15] MEDS: 0.9 % Sodium Chloride 1,000 ML 999 ML IV (04:05)
[2021-02-15 04:37] LABS: Reflex Lactate? Lactic Acid Added
[2021-02-15] MEDS: Phenylephrine HCL 20 MG in 0.9 % Sodium Chloride 250 ML 57.46 MG IVCONT (05:17)
--- NOTE | 2021-02-15 05:21 | PC.NURSE ---
RN MADE AWARE PER DR. RON PT BEING BROUGHT TO ICU NOW TO HAVE A-LINE PLACED. JENIFFER RN & LEEANNA RN TO FOLLOW TO GIVE BED SIDE REPORT TO RECEIVING LABORER [employer]. PER KARL MCCORD ADMISSION ORDERS TO BE PLACED.
[2021-02-15] MEDS: Albumin Human 25 % 100 ML IV ×2 (05:47→08:39)
[2021-02-15] MEDS: VANCOMYCIN HCL IV (05:48)
[2021-02-15] MEDS: SODIUM CHLORIDE 0.9% IV (05:48)
--- NOTE | 2021-02-15 05:53 | PC.NURSE ---
The accuracy of the patient's temperature readings have been in question since arrival. Upon arrival staff attempted to obtain an oral temperature initially but was without success due to an incomplete lip seal. Staff then obtained a rectal temp while removing EMS linens from beneath the patient and that was found to be 93.4. This RN did note that the thermometer tip had stool at the tip and staff then attempted to insert the continuous rectal thermometer without success. EDT noted that the catheter was coiling on itself and was not able to be placed successfully. This RN made Dr Valenzuela aware of the patient's rectal temperature and asked if a temp sensing santana catheter could be inserted to assist with temp monitoring which she agreed. FRANCISCO JAVIER Covarrubias placed the santana catheter at bedside with no urine noted in the catheter tubing despite the catheter being fully inserted; prior to inflating the balloon staff confirmed via bladder scan(x4 attempts) if the patient had any residual urine in his bladder (to confirm if placement was correct) and all readings except for one stated 0 (50mls noted x1). Staff inflated the 10ml balloon with ease and without any distress/discomfort reported by the member wit catheter pulled back to allow the balloon to sit in place appropriately. Santana temps noted to fluctuate between 88-93 degrees on the monitor with no urine production noted in the santana tubing or collection bag. Pt was unable to tolerate laying flat and would not have been able to tolerate laying flat and/or sitting back far enough for the bear hugger to be placed effectively. MD Valenzuela aware and questions arose regarding placing the pt on the bear hugger related to his ability to tolerate and/or accuracy of his temperature readings.
[2021-02-15 06:09] LABS: Basophils Percent Auto 0.3 % (0-2); Hematocrit 39.1 % (42.0-52.0); Hemoglobin 11.4 g/dl (14.0-18.0); Imm Gran Abs Auto 0.32 X10*3/uL (0.00-0.03); LEFT SHIFT? 1; Lymphocytes Absolute Auto 0.7 X10*3/uL (1.2-4.9); Lymphocytes Percent Auto 4.3 % (20-40); Mean Corpuscular HGB Conc 29.2 g/dl (31.0-36.0); Mean Corpuscular Hemoglobin 33.9 pg (27.0-33.0); Monocytes Percent Auto 6.2 % (2-11); Neutrophils Absolute Auto 13.7 x10*3/uL (2.0-8.3); Neutrophils Percent Auto 87.2 % (45-73); Platelet Count 232 X10*3/uL (160-400); Red Blood Count 3.36 X10*6/uL (4.60-5.80); Red Cell Distribution Width 21.7 % (11.0-16.0); White Blood Count 15.7 X10*3/uL (4.8-10.8)
[2021-02-15 06:16] LABS: VBG Base Excess -14.3 mmol/L; VBG HCO3 12 mmol/L (22-26); VBG pCO2 31 mmHg; VBG pH 7.19 (7.32-7.43); VBG pO2 37 mmHg
[2021-02-15 06:26] LABS: ~Lactic Acid-LAB USE ONLY 8.6 mmol/L (0.5-2.0)
--- NOTE | 2021-02-15 06:31 | PC.NURSE ---
This RN called ICU to speak with Mayela and/or Andreas RN in regards to the patient's Bicarb order. RN's administered the 2 50meq of Bicarb back to back per FLEX Aguirre's verbal order at bedside. While transporting the patient to the ICU, this RN inquired if Dr Valenzuela should be asked to place the order or if she would, FLEX confirmed she would place the order once in the unit. Upon arrival back to the ED staff attempted to document the previously administered bicarb but was unsuccessful; Saravanan RN called pharmacy to assist with troubleshooting. Per Pharmacy the medication was unable to be scanned due to the way the order was placed adding that a once order was placed but was to be given x2 doses. Pharmacy informed Saravanan that they would update the order. While this RN in the chart to verify whether these updates had occurred, the initial Bicarb order was noted to be discontinued with the new one charted as not given with a note stating given in ED . This RN called the unit and spoke with Mayela SLADE to provide an update and inform her of the need for staff to document the medication. Mayela stated we'll take care of it x3 to this RN when trying to figure out how to allow for myself and/or Saravanan to document the medication as given. Prior to hanging up the phone, this RN stated you will remove the not given and cortney it as given? and the response again was we will take care of it . mechanical systems control engineer aware, this RN nor Saravanan RN were able to scan the medication and per CUSTODY OFFICER there was no further action required by us. Medication was administered via IVP at 0450 and 0454.
[2021-02-15 06:33] LABS: B Type Natriuretic Peptide 99 pg/mL (<100); MANUAL DIFF FLAG SCAN; Mean Corpuscular Volume 116.4 fL (80.0-98.0); NRBC Pct Auto 1.3 /100WBC (0.0-0.2)
[2021-02-15 06:35] LABS: Alanine Aminotransferase 57 U/L (0-40); Albumin Level 1.6 g/dL (3.5-5.0); Alkaline Phosphatase 390 U/L (39-117); Anion Gap 30 (12-20); Aspartate Amino Transferase 59 U/L (5-37); Bilirubin Total 0.8 mg/dL (0.0-1.0); Blood Urea Nitrogen 34 mg/dL (9-16); Calcium 8.7 mg/dL (8.4-10.2); Carbon Dioxide 10 mmol/L (22-29); Chloride 95 mmol/L (96-108); Creatinine Clr Calc Pharmacy 25.8; Estimated Glomerular Filt Rate 13; Glucose Random 98 mg/dL (60-115); Potassium 5.3 mmol/L (3.3-5.1); Sodium 130 mmol/L (135-145); Total Protein 6.7 g/dL (6.5-8.0)
[2021-02-15] MEDS: Sodium Bicarbonate 8.4% 50 MEQ/50 ML VIAL IV ×2 (06:40→06:54)
--- NOTE | 2021-02-15 06:46 | PM.CCHP ---
History of Present Illness Date of Service: 02/15/21 Attending physician on admission: Cristian Olivas Chief Complaint: acute renal failure Pt is a 61-year-old male with COPD on 4L home oxygen, atrial fibrillation on [place], right sided heart failure, diastolic heart failure, EF 45%-50% on 03/25, alcohol dependence, HTN, HLD, chronic wounds, bilateral LE edema, every day smoker who is brought in by EMS for patient's state fall at home without head strike or LOC? Patient reports some mild dizziness prior to the fall.? Pt also endorsed cough and chest discomfort for approx 1 month. When asked about the open wounds across his chest/back/arms patient states that he scratches himself.?? Pt uses a cane or walker at home, he lives upstairs from his sister. Pt labs notable for metabolic acidosis, WBC 17.5, PT 18.2, INR 1.6, VBG 7.03/30/43/8/54/-21.1, Na 128, K5.2, Cl 95, bicarb 5, BUN 33, Cr 4.79, lactic acid 11.7, albumin 1.8. Patient was given 1 L of normal saline, sepsis fluids were held due to his heart failure, cefepime and started on a bicarb drip. Dr. Olivas agreed on assessment and plan, patient will be transferred to the ICU for further care Review of Systems Review of Systems: Yes all other systems are reviewed and are negative PMFSH Past Medical History Medical History Afib Alcohol dependence Cellulitis Chronic respiratory failure with hypoxia COPD (chronic obstructive pulmonary disease) Heart failure with reduced ejection fraction and diastolic dysfunction Hypercholesteremia Hyperlipemia Hypertension Morbid obesity Obesity hypoventilation syndrome Venous stasis dermatitis Surgical History Surgical History No pertinent past surgical history Social History Social History Household Members: Spouse Housing: Apartment Do you presently have visiting nurse or other home services: No Unable to assess alcohol history related to: Unknown Alcohol intake: current Alcohol intake frequency: 3 or more drinks per day Patient Tobacco Use Status: Tobacco use Unknown Cigarette Packs Per Day: 1 Cigarettes Per Day: 20.0 Years Smoked: 40 service: No Current occupational status: disabled Meds Allergies Allergy/AdvReac Type Severity Reaction Status Date / Time No Known Allergies Allergy Verified 04/17/20 04:45 [No Known Allergies*] Active Medications: Current Medications Sodium Bicarbonate 100 meq/ (Dextrose) 1,000 mls @ 150 mls/hr IV .Q6H40M [facility] Last Admin: 02/15/21 03:57 Dose: 150 mls/hr Documented by: Phenylephrine HCl 20 mg/ (Sodium Chloride) 252 mls @ 0 mls/hr IVCONT .Q0M [facility]; Protocol Last Titration: 02/15/21 06:01 Dose: 1.5 mcg/kg/min, 172.37 mls/hr Documented by: Albumin Human (Kedbumin 25 %) 100 mls @ 100 mls/hr IV Q1H [facility] Stop: 02/15/21 07:59 Pharmacy Consult (Consult Rx Vancomycin Dosing) 1 each MISCELLANE DAILY PRN PRN Reason: Consult order Sodium Bicarbonate (Sodium Bicarbonate 8.4% 50 Meq/50 Ml Vial) 50 meq IV ONCE ONE Stop: 02/15/21 06:46 Physical Exam Vital Signs: Vital Signs: Last Vital Signs Temp 93 F L 02/15/21 06:00 Pulse 128 H 02/15/21 06:00 Resp 20 02/15/21 06:00 BP 81/51 L 02/15/21 06:01 Pulse Ox 91 L 02/15/21 06:23 Oxygen Flow Rate 5 02/15/21 06:23 Body Mass Index 48.1 Const: General: cooperative, comfortable, no acute distress and poor hygiene Nutritional Appearance: obese morbidly obese Orientation/consciousness: oriented to person, oriented to place and No oriented to time Limitations: ambulation with cane and ambulation with walker HENMT: Head: Yes normal to inspection, Yes No palpable skull fracture present, Yes normocephalic, Yes atraumatic and No abrasion Face and sinus: Yes face symmetric Eyes: General: appearance normal, both eyes and all related structures Pupils: Equal, round and reactive pupils present EOM: EOMs intact bilaterally Neck: Neck: Yes normal visual inspection, Yes full ROM, Yes trachea midline and Yes supple Resp: Effort & Inspection: normal respiratory effort, able to speak in complete sentences and Actively coughing Auscultation: diminished lung sounds Cardio: Jugular venous distension: no JVD Rate: tachycardic Rhythm: abnormal rhythm irregularly irregular Heart sounds: normal S1 and S2 GI: Inspection: Yes Abdominal panniculus present and Yes obesity Palpation (GI): Soft to palpation and nontender Skin: Wounds: wounds noted (multiple wounds over bilateral LE, arms, earlobes and chest) Neuro: General: oriented to person, oriented to place and No oriented to time Cranial nerves: Yes Equal, round and reactive pupils present Cognition (Neuro): normal cognition Results Labs CBC and Chem 7: 02/15/21 06:02 02/15/21 06:02 Labs: Laboratory Results - last 24 hr 02/15/21 02/15/21 02/15/21 02:27 02:27 02:27 MCV MCH MCHC RDW Plt Count MPV Immature Gran % (Auto) Neut % (Auto) Lymph % (Auto) [place] % (Auto) Eos % (Auto) Baso % (Auto) Lymph # (Auto) [place] # (Auto) Eos # (Auto) Baso # (Auto) Abs Immat Gran (auto) Absolute Neuts (auto) Absolute Nucleated RBC Nucleated RBC % (auto) Smear Tech's Comments PT INR VBG pH VBG pCO2 VBG pO2 VBG HCO3 VBG O2 Saturation VBG Base Excess Anion Gap 33 H Estim Creat Clear Calc 24.5 Estimated GFR 12 Random Glucose 104 Lactic Acid Lactic Acid Fup @ 2Hr Calcium 9.3 D Magnesium 2.5 Total Bilirubin 0.9 AST 55 H ALT 61 H Alkaline Phosphatase 434 H D Troponin I High Sens 5.9 B-Natriuretic Peptide 123 H Total Protein 7.2 Albumin 1.8 L D Lipase 259 H Ethyl Alcohol COVID-19 (JAYNE) Negative COVID-19 Clin Com See Note Blood Type Antibody Screen 02/15/21 02/15/21 02/15/21 02:31 02:32 02:32 MCV 116.6 H MCH 34.0 H MCHC 29.2 L RDW 21.9 H Plt Count 297 MPV 8.9 L Immature Gran % (Auto) 2.9 H Neut % (Auto) 83.3 H Lymph % (Auto) 5.0 L [place] % (Auto) 8.6 Eos % (Auto) 0.1 Baso % (Auto) 0.1 Lymph # (Auto) 0.9 L [place] # (Auto) 1.5 H Eos # (Auto) 0.0 Baso # (Auto) 0.0 Abs Immat Gran (auto) 0.51 H Absolute Neuts (auto) 14.5 H Absolute Nucleated RBC 0.370 H Nucleated RBC % (auto) 2.1 H Smear Tech's Comments VERIFIED PT 18.2 H INR 1.6 H VBG pH Cancelled VBG pCO2 Cancelled VBG pO2 Cancelled VBG HCO3 Cancelled VBG O2 Saturation Cancelled VBG Base Excess Cancelled Anion Gap Estim Creat Clear Calc Estimated GFR Random Glucose Lactic Acid Lactic Acid Fup @ 2Hr Calcium Magnesium Total Bilirubin AST ALT Alkaline Phosphatase Troponin I High Sens B-Natriuretic Peptide Total Protein Albumin Lipase Ethyl Alcohol COVID-19 (JAYNE) [facility] Blood Type Antibody Screen 02/15/21 02/15/21 02/15/21 02:32 02:33 02:35 MCV MCH MCHC RDW Plt Count MPV Immature Gran % (Auto) Neut % (Auto) Lymph % (Auto) [place] % (Auto) Eos % (Auto) Baso % (Auto) Lymph # (Auto) [place] # (Auto) Eos # (Auto) Baso # (Auto) Abs Immat Gran (auto) Absolute Neuts (auto) Absolute Nucleated RBC Nucleated RBC % (auto) Smear Tech's Comments PT INR VBG pH 7.03 L* VBG pCO2 30 VBG pO2 43 VBG HCO3 8 L VBG O2 Saturation 54.0 VBG Base Excess -21.1 Anion Gap Estim Creat Clear Calc Estimated GFR Random Glucose Lactic Acid 11.7 H* Lactic Acid Fup @ 2Hr Calcium Magnesium Total Bilirubin AST ALT Alkaline Phosphatase Troponin I High Sens B-Natriuretic Peptide Total Protein Albumin Lipase Ethyl Alcohol < 10 COVID-19 (JAYNE) [facility] Blood Type Antibody Screen 02/15/21 02/15/21 02/15/21 04:20 06:02 06:02 MCV MCH MCHC RDW Plt Count MPV Immature Gran % (Auto) Neut % (Auto) Lymph % (Auto) [place] % (Auto) Eos % (Auto) Baso % (Auto) Lymph # (Auto) [place] # (Auto) Eos # (Auto) Baso # (Auto) Abs Immat Gran (auto) Absolute Neuts (auto) Absolute Nucleated RBC Nucleated RBC % (auto) Smear Tech's Comments PT INR VBG pH VBG pCO2 VBG pO2 VBG HCO3 VBG O2 Saturation VBG Base Excess Anion Gap 30 H Estim Creat Clear Calc 25.8 Estimated GFR 13 Random Glucose 98 Lactic Acid Lactic Acid Fup @ 2Hr Calcium 8.7 D Magnesium Total Bilirubin 0.8 AST 59 H ALT 57 H Alkaline Phosphatase 390 H Troponin I High Sens B-Natriuretic Peptide 99 Total Protein 6.7 Albumin 1.6 L Lipase Ethyl Alcohol COVID-19 (JAYNE) COVID-19 [facility] Com Blood Type A Negative Antibody Screen NEGATIVE 02/15/21 02/15/21 02/15/21 06:02 06:02 06:09 MCV 116.4 H MCH 33.9 H MCHC 29.2 L RDW 21.7 H Plt Count 232 MPV 9.0 L Immature Gran % (Auto) 2.0 H Neut % (Auto) 87.2 H Lymph % (Auto) 4.3 L [place] % (Auto) 6.2 Eos % (Auto) 0.0 Baso % (Auto) 0.3 Lymph # (Auto) 0.7 L [place] # (Auto) 1.0 Eos # (Auto) 0.0 Baso # (Auto) 0.0 Abs Immat Gran (auto) 0.32 H Absolute Neuts (auto) 13.7 H Absolute Nucleated RBC 0.210 H Nucleated RBC % (auto) 1.3 H Smear Tech's Comments PT INR VBG pH 7.19 L* VBG pCO2 31 VBG pO2 37 VBG HCO3 12 L VBG O2 Saturation 57.0 VBG Base Excess -14.3 Anion Gap Estim Creat Clear Calc Estimated GFR Random Glucose Lactic Acid Lactic Acid Fup @ 2Hr 8.6 H* Calcium Magnesium Total Bilirubin AST ALT Alkaline Phosphatase Troponin I High Sens B-Natriuretic Peptide Total Protein Albumin Lipase Ethyl Alcohol COVID-19 (JAYNE) COVID-19 Clin Com Blood Type Antibody Screen Imaging Radiologist's Impressions: Impressions Abdomen/Pelvis CT 02/15/21 02:49 IMPRESSION: Study significantly limited due to motion. 1. Bilateral lung opacities, which could be infectious or inflammatory. 2. Hepatic steatosis. 3. No acute abnormalities are seen within the abdomen or pelvis. Chest CT 02/15/21 02:49 IMPRESSION: Study significantly limited due to motion. 1. Bilateral lung opacities, which could be infectious or inflammatory. 2. Hepatic steatosis. 3. No acute abnormalities are seen within the abdomen or pelvis. Head CT 02/15/21 02:49 IMPRESSION: Motion limited evaluation. No acute intracranial pathology. Assessment and Plan (1) IFRAH (acute kidney injury): Status: Acute Dialysis catheter placed, nephrology consult appreciated. Monitor renal indices. (2) Severe sepsis: Status: Acute Antibiotics and source of sepsis needs to be identified, patient is anuric, continue pressors (3) Heart failure with reduced ejection fraction and diastolic dysfunction: Status: Acute monitor fluid status, albumin given (4) Alcohol dependence: Qualifiers: Substance use status: alcohol-induced anxiety disorder Qualified Code(s): F10.280 - Alcohol dependence with alcohol-induced anxiety disorder Status: Acute watch for sigs of withdrawal (5) Lymphedema, not elsewhere classified: Status: Acute (6) Fall: Qualifiers: Encounter type: initial encounter Qualified Code(s): W19.XXXA - Unspecified fall, initial encounter Status: Acute (7) Acute bilateral venous stasis dermatitis: Status: Acute (8) COPD (chronic obstructive pulmonary disease): Qualifiers: COPD type: unspecified COPD Qualified Code(s): J44.9 - Chronic obstructive pulmonary disease, unspecified Status: Acute maintain O2 88-92% with NC (9) Hyperlipemia: Status: Acute (10) Hypertension: Status: Acute (11) Atrial fibrillation with rapid ventricular response: Status: Acute currently in afib, rate controlled, continue home meds (12) Morbid obesity: Status: Acute (13) Obesity hypoventilation syndrome: Status: Acute (14) Metabolic acidosis: Status: Acute monitor vbg, continue bicarb
[2021-02-15 06:49] LABS: Venous Blood Gas Refer to POC result
[2021-02-15] MEDS: Ketamine HCl/NS 50 MG/5 ML SYRINGE IVPUSH ×2 (06:52→07:45)
[2021-02-15 06:57] LABS: Procalcitonin 66.55 ng/mL
--- NOTE | 2021-02-15 07:02 | W.PM.CCHP ---
Procedures Date of Service Date of Service: 02/15/21 Central Line Placement Left IJ: Central Line Comments: venous access, no post procedure x-ray done as per Dr Olivas Consent for Procedure: Emergent-no informed consent obtained Time out performed: Yes Sterile Technique Used: Yes Patient placed on monitor/pulse ox: Yes prep: mask, gown and gloves Central line prep: Chlorhexidine scrub Local anesthesia used: lidocaine 1% Amount of anesthesia used (ml): 5 Ultrasound used for placement: Yes Central line lumen inserted: triple Post procedure: sutured in place, good blood return, all ports aspirated, flushed, capped and sterile dressing applied Patient tolerated procedure: well and no complications Complications: none
--- NOTE | 2021-02-15 07:11 | P.CONCC_ITS ---
History of Present Illness Data of Consult Primary Care Provider: Unknown Physician [facility] Past Medical History Medical History Afib Alcohol dependence Cellulitis Chronic respiratory failure with hypoxia COPD (chronic obstructive pulmonary disease) Heart failure with reduced ejection fraction and diastolic dysfunction Hypercholesteremia Hyperlipemia Hypertension Morbid obesity Obesity hypoventilation syndrome Venous stasis dermatitis Surgical History Surgical History No pertinent past surgical history Social History Social History Household Members: None Housing: Apartment Do you presently have visiting nurse or other home services: No Alcohol intake: current Alcohol intake frequency: 3 or more drinks per day Cigarette Packs Per Day: 1 Cigarettes Per Day: 20.0 Years Smoked: 40 Advance Directives: No Advance Directives Information Provided: No service: No Current occupational status: disabled Meds Allergies Allergy/AdvReac Type Severity Reaction Status Date / Time No Known Allergies Allergy Verified 04/17/20 04:45 [No Known Allergies*] Active Medications: Current Medications Sodium Bicarbonate 100 meq/ (Dextrose) 1,000 mls @ 150 mls/hr IV .Q6H40M [facility] Last Admin: 02/15/21 03:57 Dose: 150 mls/hr Documented by: Phenylephrine HCl 20 mg/ (Sodium Chloride) 252 mls @ 0 mls/hr IVCONT .Q0M [facility]; Protocol Last Titration: 02/15/21 06:01 Dose: 1.5 mcg/kg/min, 172.37 mls/hr Documented by: Albumin Human (Kedbumin 25 %) 100 mls @ 100 mls/hr IV Q1H [facility] Stop: 02/15/21 07:59 Pharmacy Consult (Consult Rx Vancomycin Dosing) 1 each MISCELLANE DAILY PRN PRN Reason: Consult order Physical Exam Vital Signs: Vital Signs: Last Vital Signs Temp 93.2 F L 02/15/21 07:00 Pulse 137 H 02/15/21 07:00 Resp 20 02/15/21 07:00 BP 92/61 02/15/21 07:00 Pulse Ox 90 L 02/15/21 07:00 Oxygen Flow Rate 5 02/15/21 06:23 Body Mass Index 48.1 Results Labs CBC & Chem 7: 02/15/21 06:02 02/15/21 06:02 Labs: Short CBC 02/15/21 02/15/21 Range/Units 02:32 06:02 WBC 17.5 H 15.7 H (4.8-10.8) X10*3/uL Hgb 11.3 L 11.4 L (14.0-18.0) g/dl Hct 38.7 L 39.1 L (42.0-52.0) % Plt Count 297 232 (160-400) X10*3/uL [facility] 02/15/21 02/15/21 02:27 06:02 Sodium 128 L 130 L Potassium 5.2 H 5.3 H Chloride 95 L 95 L Carbon Dioxide 5 L* D 10 L* D BUN 33 H D 34 H Creatinine 4.79 H* 4.71 H* Calcium 9.3 D 8.7 D Liver Function 02/15/21 02/15/21 Range/Units 02:27 06:02 Total Bilirubin 0.9 0.8 (0.0-1.0) mg/dL AST 55 H 59 H (5-37) U/L ALT 61 H 57 H (0-40) U/L Alkaline Phosphatase 434 H D 390 H (39-117) U/L Albumin 1.8 L D 1.6 L (3.5-5.0) g/dL
--- NOTE | 2021-02-15 07:22 | PC.NURSE ---
Pt arrived in the Er from home. Pt was transferred to icu. Pt is unkempt, sob, on oxygen 5L for O2 over 88%, a&ox2, skin is in poor condition in lower ext with signs of venous stasis, open areas, and no pressure ulcers. pt hypothermic in low 90s' bear hugger applied. afib on tele [id number]. Rogelio titrated to maintain map greater than 65. Albumin given, as well as 2 amps of bicarb. TLc to left IJ 50 of ketamine given for procedure with good effect. Peters in place from er Anuric no output. Restraints in place for patient safety during procedure. PA aware of all critical labs and blood gases. Dr. Olivas at bedside 0700.
[2021-02-15] MEDS: Phenylephrine HCL 20 MG in 0.9 % Sodium Chloride 250 ML 172.37 MG IVCONT (07:31)
[2021-02-15] MEDS: Midazolam HCl/PF 2 MG/2 ML VIAL IVPUSH (07:45)
[2021-02-15] MEDS: Rocuronium Bromide 50 MG/5 ML VIAL 100 MG IVPUSH (07:45)
[2021-02-15] MEDS: propofoL 1,000 MG/100 ML VIAL 19.31 MG IVCONT (08:00)
[2021-02-15 08:07] LABS: Reflex Lactate? 2 Y
[2021-02-15] MEDS: Sodium Bicarbonate 8.4% 150 MEQ in Dextrose 5 % 850 ML 120 MEQ IV (08:32)
[2021-02-15] MEDS: Phenylephrine HCL 20 MG in 0.9 % Sodium Chloride 250 ML 287.28 MG IVCONT (08:50)
[2021-02-15 09:36] LABS: VBG Base Excess -14.2 mmol/L; VBG HCO3 17 mmol/L (22-26); VBG pCO2 61 mmHg; VBG pH 7.04 (7.32-7.43); VBG pO2 78 mmHg
[2021-02-15 09:48] LABS: Venous Blood Gas Refer to POC result
[2021-02-15 10:11] LABS: Lactic Acid 6.4 mmol/L (0.5-2.0)
[2021-02-15] MEDS: dilTIAZem HCL 125 MG in 0.9 % Sodium Chloride 100 ML 10 MG IVCONT (10:15)
--- NOTE | 2021-02-15 10:29 | CA_ITS ---
Transthoracic Echocardiogram Patient (Last, First, Middle): Martin Pearce E Gender: Male Date of : 1960 Age: 61 Procedure Date: 02/15/2021 Procedure Type: Transthoracic Echocardiogram Location: ICU Height: 182.88 cm Weight: 160.57 kg BSA: 2.72 m2 Heart Rate: bpm BP: 93 / 60 mmHg [place] Planter: JOSÉ Referring MD: Cristian Olivas MD Symptoms: shock, renal and resp failure; r/o CHF, rt heart failure Study Quality: Technically Difficult ECG Rhythm: Atrial Fibrillation Conclusions: - The left ventricular systolic function is normal. The visually estimated ejection fraction is between 65-70%. - Moderately increased right ventricular cavity size. Possible decrease in right ventricular systolic function; TAPSE mildly diminished at 1.58cm but annular doppler velocities in normal range. - There is mild to moderate tricuspid valve regurgitation. - Moderate pulmonary hypertension is present. Findings Left Ventricle Normal left ventricular cavity size. There is mildly increased left ventricular wall thickness. The left ventricular systolic function is normal. The visually estimated ejection fraction is between 65-70%. There is no evidence of regional wall motion abnormalities. Diastolic function is indeterminate on the basis of available data. Right Ventricle Moderately increased right ventricular cavity size. Possible decrease in right ventricular systolic function; TAPSE mildly diminished at 1.58cm but annular doppler velocities in normal range. RV basal diameter 5.35cm. Tricuspid Valve There is mild to moderate tricuspid valve regurgitation. The right ventricular systolic pressure is 56 mmHg. Moderate pulmonary hypertension is present. Venous The inferior vena cava was not well visualized. The inferior vena cava is normal in size. Prior Study Comparison No significant change compared to prior study dated: 03/28/2020. Measurements 2D Linear Measurements IVSd: 1.38 0.6-0.9/0.6-1.0 cm LVIDd: 4.76 3.9-5.3/4.2-5.9 cm LVIDd Index: 1.75 2.4-3.2/2.2-3.1 cm/m2 LVIDs: 3.00 2.0-3.6 cm LVPWd: 1.20 0.7-1.1 cm LV Mass: 299.10 67-162/88-224 g LV Mass Index: 109.96 43-95/49-115 g/m2 Right Ventricle TAPSE (mm): 1.58 TVS' Cade: 12.50 Tricuspid Valve TR Pk Cade: 2.96 TR Pk Grad: 35.00 RVSP: 56.00 Updated in Other Vendor System with Status of Final Chapo Redd MD electronically signed on 02/15/2021 1:47:46 PM with status of Final
--- NOTE | 2021-02-15 11:05 | MHC.CM.PN ---
Pt emergently intubated and unable to provide information. Call placed to pt's next of kin, HCP and brother Jeffrey Pearce. Jeffrey states pt resides in an apt above his estranged sister. His sister heard a loud noise, found pt unresponsive, and called EMS. Jeffrey states pt has had a long history of terrible alcoholism that destroyed his life Jeffrey also states pt has been estranged from most of his family including an ex spouse and 2 children (one in [place] and one in [place]) whom he saw last month after a 10 year period of estrangement. Alcohol ruined his relationships per Jeffrey who also states pt did not care for himself including seeing providers and was not vaccinated for COVID. He just drank and existed and refused all attempts at help MD has been in long conversation with Jeffrey, Jeffrey's spouse, Rashawn who is an RN and lon Garland's ex spouse. All are in agreement that pt would not want aggressive resuscitation efforts and would want to pass. Plans are to transition pt to [facility] [employer] status. Family declined visitation. CM to follow in the interim
--- NOTE | 2021-02-15 11:12 | P.PNCC_ITS ---
Subjective Subjective Date of Service: 02/15/21 Interval History: Mr. Pearce was admitted to the ICU this morning with severe metabolic and lactic acidosis, acute renal failure, hypothermia, and shock, likely septic. The patient is a 61-year-old male with past medical history of super morbid obesity and severe alcoholism.? Also has hypertension, KAREN, diastolic heart failure, EF 45-50%, right heart failure, COPD, every day smoker, chronic wounds, and bilateral lymphedema.? Supposedly wears oxygen 24 hours at home.? [employer] labs show proof of chronic CO2 retention.? Frequent medication noncompliance.? The patient also has chronic atrial fibrillation and is on Xarelto.? Reportedly ambulates with a cane and a walker. The patient was admitted here admitted to [facility] in February and March of last year.? He was also admitted to the ICU here in April of last year w hypoxemic and hypercapnic respiratory failure requiring BiPAP support secondary to exacerbation of underlying heart failure. HISTORY OF PRESENT ILLNESS:? Early this morning, the patient fell and could not get up.? He was found on the floor at home.? EMS was called and the patient was BIBA to the ED.? in the ED, the patient was unkempt.? He was reportedly alert and oriented.? He was tachypneic with increased work of breathing, and sat 90% on 3.5 L oxygen.? He was hypotensive and hypothermic.? Lower extremities showed severe chronic lymphedema.? The patient had large open sores all over his body. Labs in the ED were notable for white count of 17, INR 1.6, BUN/creatinine 33 /4.7 (previously 8/0.6), bicarb 5, potassium 5.2, sodium 128, glucose 104, albumin 1.8, lactate 11, lipase 259.? Venous blood gas showed 7.03/30/-21.? Alcohol level was negative.? No other tox screen was done.? COVID JAYNE was negative. Head CT showed no acute pathology.? Chest CT (my reading) interpretation severely compromised by motion artifact.? Clearly shows bilateral pulmonary infiltrates.? Abdominal CT interpretation also limited by motion artifact.? No acute abnormalities were seen within the abdomen or pelvis. Blood cultures were drawn and the patient was given fluids, antibiotics, and bicarbonate and admitted to the ICU.? He was not making any urine, and his bladder was empty.? A central line was placed.? I saw him shortly thereafter. The patient was readily interactive, but clearly encephalopathic/delirious.? B reathing was moderately labored.? Sat on nasal cannula oxygen was 89%.? Heart rate was 130?s, atrial fibrillation.? Blood pressure was 92/61 on Rogelio-Synephrine 1.5 mcg.? Temperature was 93.2 degrees.? The patient is very large.? He has a very large abdomen and large breasts, and severe lower extremity lymphedema.? He has multiple large open wounds around his whole body.? 5cc of urine since arrival Repeat labs after bicarbonate and medium-dose bicarb drip:? Renal indices carmella gypsy, bicarb up to 10, potassium 5.3, Procalcitonin was 66.? VBG showed 7.19// 14. Bedside ECHOCARDIOGRAM by me.? Image quality:? Fair-poor.? Findings 1. LV wall thickness probably normal.? 2. The left ventricle was poorly visualized.? Best view was subcostal.? Overall function looked normal.? Ejection fraction impossible to quantitate, but probably at least 40-50%.? Could well be normal.? No gross RWMAs noted. 3. Right ventricular cavity was clearly large, with RV:LV cavity ratio at least 1.5. 4. Both atria are large. 5. Aortic valve not visualized. 6. Mitral valve normal morphology.? I saw no MR on color flow. 7. Tricuspid valve normal morphology.? 2+ TR with a medial eccentric jet by color-flow.? My best CWD envelope measured 2m/sec.? Gradient 16mm 8. Unable to image IVC. IMPRESSION: 1. Underlying supermorbid obesity.? Undoubtedly has severe KAREN. 2. Underlying COPD w chronic CO2 retention 3. Underlying chronic hypoxemic and hypercarbic resp failure (by history). 4. Underlying RHF.? 2? above. 5. Underlying alcoholism 6. Shock. Most likely septic shock. See below. (PE not ruled out but improbable based on echo alone, and also on hemodynamics and oxygenation.) 7. Afib w RVR 8.. Bilateral pulmonary infiltrates.? Given the clinical picture, the infiltrates on chest CT are not likely infectious pneumonia, either bacterial or viral.? They?re too diffuse.? If his bilateral large diffuse infiltrates were bacterial pneumonia, he already be on a ventilator, more likely .? Ditto for viral pneumonia.? Atypical pneumonia is a remote possibility, but also unlikely.? Most likely ddx is pulmonary edema. 9. Acute respiratory failure.? 2? bilat pulmon infiltrates and severe metabolic acidosis. 10. Acute renal failure.? Cause is undetermined.? Haven?t yet ruled out rhabdo.? CT scan is unrevealing. 11. Severe metabolic acidosis.? 2? to above.? Needs acute HD 12. ID:? Despite 7. above, septic shock is most likely etiology of his clinical picture.? Source not yet identified.? Could well be his legs.? None of his open sores that I saw look that bad.? (E.g nothing that looks like Nec Fasc.? And if he did have nec fasc., his lactate wouldn?t be getting better, it?d be worse.)? He?s been given cefepime and vanco (adequate for now). The trachea was intubated and a dialysis catheter was placed.? I discussed the situation with Dr. Trujillo.? Plans were made for dialysis at noon. Late this morning, we talked to the patient's brother Jeffrey who is the patient's healthcare proxy.? According to Jeffrey, the patient does not take care of himself.? His life is terrible, he has been suffering greatly, and has expressed the wish to on numerable occasions.? He has been in and out of the hospital. I also talked with Jeffrey?s Rashawn.? She is a nurse at [employer].? By our telephone conversation, she seems very medically knowledgeable to me, with an immediate grasp of the situation, an an excellent prospective on Favian's life.? She was very clear and insistent that kalpana would never have wanted any of the above critical care management, nor would have Jeffrey or Favian's sisters wanted that.? She repeated virtually everything Jeffrey told me. We talked to Jeffrey again.? He requested that we discontinue all current management and let Favian .? He told us that no one wants to come in to see Favian before he dies.? We told him that we would call him after Favian passes. We gave the patient an hour to recover spont respiratory efforts.? We made him comfortable with propofol and dilaudid.? Spont respiratory efforts resumed and we had him on assisted ventilation.? The drips were discontinued and the tracheal tube was removed.? The patient peacefully and comfortably a short time thereafter at 12:21pm. The medical facilities section director was notified.? Spoke with Elayne Hidalgo.? She declined the case.? Case# [id number]. Critical care time (excluding procedures):? 3.5+ hours (Clock time [id number]) Critical Care Time (minutes): 195 Physical Exam Vital Signs: Vital Signs: Last Vital Signs Temp 96.1 F L 02/15/21 11:00 Pulse 140 H 02/15/21 11:00 Resp 22 H 02/15/21 11:00 BP 90/59 L 02/15/21 11:00 Pulse Ox 92 02/15/21 11:00 Oxygen Flow Rate 5 02/15/21 06:23 Body Mass Index 48.1 Objective Data Labs CBC & Chem 7: 02/15/21 06:02 02/15/21 06:02 Labs: Laboratory Results - last 24 hr 02/15/21 02/15/21 02/15/21 02:27 02:27 02:27 WBC RBC Hgb Hct MCV MCH MCHC RDW Plt Count MPV Immature Gran % (Auto) Neut % (Auto) Lymph % (Auto) Faulkner % (Auto) Eos % (Auto) Baso % (Auto) Lymph # (Auto) Faulkner # (Auto) Eos # (Auto) Baso # (Auto) Abs Immat Gran (auto) Absolute Neuts (auto) Absolute Nucleated RBC Nucleated RBC % (auto) Smear Tech's Comments Smear Path Review PT INR VBG pH VBG pCO2 VBG pO2 VBG HCO3 VBG O2 Saturation VBG Base Excess Sodium 128 L Potassium 5.2 H Chloride 95 L Carbon Dioxide 5 L* D Anion Gap 33 H BUN 33 H D Creatinine 4.79 H* Estim Creat Clear Calc 24.5 Estimated GFR 12 Random Glucose 104 Lactic Acid Lactic Acid Fup @ 2Hr Calcium 9.3 D Magnesium 2.5 Total Bilirubin 0.9 AST 55 H ALT 61 H Alkaline Phosphatase 434 H D Troponin I High Sens 5.9 B-Natriuretic Peptide 123 H Total Protein 7.2 Albumin 1.8 L D Lipase 259 H Procalcitonin Ethyl Alcohol COVID-19 (JAYNE) Negative COVID-19 Clin Com See Note Blood Type Antibody Screen 02/15/21 02/15/21 02/15/21 02:31 02:32 02:32 WBC 17.5 H RBC 3.32 L Hgb 11.3 L Hct 38.7 L MCV 116.6 H MCH 34.0 H MCHC 29.2 L RDW 21.9 H Plt Count 297 MPV 8.9 L Immature Gran % (Auto) 2.9 H Neut % (Auto) 83.3 H Lymph % (Auto) 5.0 L Faulkner % (Auto) 8.6 Eos % (Auto) 0.1 Baso % (Auto) 0.1 Lymph # (Auto) 0.9 L Faulkner # (Auto) 1.5 H Eos # (Auto) 0.0 Baso # (Auto) 0.0 Abs Immat Gran (auto) 0.51 H Absolute Neuts (auto) 14.5 H Absolute Nucleated RBC 0.370 H Nucleated RBC % (auto) 2.1 H Smear Tech's Comments VERIFIED Smear Path Review SEE NOTE PT 18.2 H INR 1.6 H VBG pH Cancelled VBG pCO2 Cancelled VBG pO2 Cancelled VBG HCO3 Cancelled VBG O2 Saturation Cancelled VBG Base Excess Cancelled Sodium Potassium Chloride Carbon Dioxide Anion Gap BUN Creatinine Estim Creat Clear Calc Estimated GFR Random Glucose Lactic Acid Lactic Acid Fup @ 2Hr Calcium Magnesium Total Bilirubin AST ALT Alkaline Phosphatase Troponin I High Sens B-Natriuretic Peptide Total Protein Albumin Lipase Procalcitonin Ethyl Alcohol COVID-19 (JAYNE) COVID-19 [employer] Com Blood Type Antibody Screen 02/15/21 02/15/21 02/15/21 02:32 02:33 02:35 WBC RBC Hgb Hct MCV MCH MCHC RDW Plt Count MPV Immature Gran % (Auto) Neut % (Auto) Lymph % (Auto) Faulkner % (Auto) Eos % (Auto) Baso % (Auto) Lymph # (Auto) Faulkner # (Auto) Eos # (Auto) Baso # (Auto) Abs Immat Gran (auto) Absolute Neuts (auto) Absolute Nucleated RBC Nucleated RBC % (auto) Smear Tech's Comments Smear Path Review PT INR VBG pH 7.03 L* VBG pCO2 30 VBG pO2 43 VBG HCO3 8 L VBG O2 Saturation 54.0 VBG Base Excess -21.1 Sodium Potassium Chloride Carbon Dioxide Anion Gap BUN Creatinine Estim Creat Clear Calc Estimated GFR Random Glucose Lactic Acid 11.7 H* Lactic Acid Fup @ 2Hr Calcium Magnesium Total Bilirubin AST ALT Alkaline Phosphatase Troponin I High Sens B-Natriuretic Peptide Total Protein Albumin Lipase Procalcitonin Ethyl Alcohol < 10 COVID-19 (JAYNE) COVID-19 Clin Com Blood Type Antibody Screen 02/15/21 02/15/21 02/15/21 04:20 06:02 06:02 WBC RBC Hgb Hct MCV MCH MCHC RDW Plt Count MPV Immature Gran % (Auto) Neut % (Auto) Lymph % (Auto) Faulkner % (Auto) Eos % (Auto) Baso % (Auto) Lymph # (Auto) Faulkner # (Auto) Eos # (Auto) Baso # (Auto) Abs Immat Gran (auto) Absolute Neuts (auto) Absolute Nucleated RBC Nucleated RBC % (auto) Smear Tech's Comments Smear Path Review PT INR VBG pH VBG pCO2 VBG pO2 VBG HCO3 VBG O2 Saturation VBG Base Excess Sodium 130 L Potassium 5.3 H Chloride 95 L Carbon Dioxide 10 L* D Anion Gap 30 H BUN 34 H Creatinine 4.71 H* Estim Creat Clear Calc 25.8 Estimated GFR 13 Random Glucose 98 Lactic Acid Lactic Acid Fup @ 2Hr Calcium 8.7 D Magnesium Total Bilirubin 0.8 AST 59 H ALT 57 H Alkaline Phosphatase 390 H Troponin I High Sens B-Natriuretic Peptide 99 Total Protein 6.7 Albumin 1.6 L Lipase Procalcitonin Ethyl Alcohol COVID-19 (JAYNE) COVID-19 Clin Com Blood Type A Negative Antibody Screen NEGATIVE 02/15/21 02/15/21 02/15/21 06:02 06:02 06:02 WBC 15.7 H RBC 3.36 L Hgb 11.4 L Hct 39.1 L MCV 116.4 H MCH 33.9 H MCHC 29.2 L RDW 21.7 H Plt Count 232 MPV 9.0 L Immature Gran % (Auto) 2.0 H Neut % (Auto) 87.2 H Lymph % (Auto) 4.3 L Faulkner % (Auto) 6.2 Eos % (Auto) 0.0 Baso % (Auto) 0.3 Lymph # (Auto) 0.7 L Faulkner # (Auto) 1.0 Eos # (Auto) 0.0 Baso # (Auto) 0.0 Abs Immat Gran (auto) 0.32 H Absolute Neuts (auto) 13.7 H Absolute Nucleated RBC 0.210 H Nucleated RBC % (auto) 1.3 H Smear Tech's Comments Smear Path Review PT INR VBG pH VBG pCO2 VBG pO2 VBG HCO3 VBG O2 Saturation VBG Base Excess Sodium Potassium Chloride Carbon Dioxide Anion Gap BUN Creatinine Estim Creat Clear Calc Estimated GFR Random Glucose Lactic Acid Lactic Acid Fup @ 2Hr 8.6 H* Calcium Magnesium Total Bilirubin AST ALT Alkaline Phosphatase Troponin I High Sens B-Natriuretic Peptide Total Protein Albumin Lipase Procalcitonin 66.55 Ethyl Alcohol COVID-19 (JYANE) COVID-19 [employer] Blood Type Antibody Screen 02/15/21 02/15/21 02/15/21 06:09 09:30 09:31 WBC RBC Hgb Hct MCV MCH MCHC RDW Plt Count MPV Immature Gran % (Auto) Neut % (Auto) Lymph % (Auto) Faulkner % (Auto) Eos % (Auto) Baso % (Auto) Lymph # (Auto) Faulkner # (Auto) Eos # (Auto) Baso # (Auto) Abs Immat Gran (auto) Absolute Neuts (auto) Absolute Nucleated RBC Nucleated RBC % (auto) Smear Tech's Comments Smear Path Review PT INR VBG pH 7.19 L* 7.04 L* VBG pCO2 31 61 VBG pO2 37 78 VBG HCO3 12 L 17 L VBG O2 Saturation 57.0 89.0 VBG Base Excess -14.3 -14.2 Sodium Potassium Chloride Carbon Dioxide Anion Gap BUN Creatinine Estim Creat Clear Calc Estimated GFR Random Glucose Lactic Acid 6.4 H* Lactic Acid Fup @ 2Hr Calcium Magnesium Total Bilirubin AST ALT Alkaline Phosphatase Troponin I High Sens B-Natriuretic Peptide Total Protein Albumin Lipase Procalcitonin Ethyl Alcohol COVID-19 (JAYNE) COVID-19 [employer] Com Blood Type Antibody Screen Quality Stroke Does the patient have a stroke diagnosis?: No VTE Prior VTE?: No VTE Risk Level:: Medical - moderate - high VTE Device Contraindication: N/A - Device Ordered VTE Drug Contraindication: N/A - Med Ordered Critical Care Time 195 min total
[2021-02-15 11:36] LABS: Reflex Lactate? Lactic Acid Added
--- NOTE | 2021-02-15 12:06 | CONS_ITS ---
DATE OF SERVICE: REASON FOR CONSULTATION: I was called to see this patient to assist in the management of acute kidney injury and acidosis. HISTORY OF PRESENT ILLNESS: To summarize, the information was obtained from the EMR and ICU attending. Martin is a 61-year-old man with history of COPD, obesity, who has been on home oxygen, history of atrial fibrillation with right-sided heart failure, and significant alcohol abuse, was brought in because of being found unresponsive. At the time of admission, he was found to have acute kidney injury with severe acidosis with a bicarb of 10 and pH of 7.0. The imaging study did not reveal any obstruction. He is hypotensive. He is on pressors. He is oliguric. He has mild hyperkalemia with a potassium of 5.2, and the ICU attending is inserted a temporary dialysis catheter and has requested this consult to initiate dialysis. PAST MEDICAL HISTORY: Ongoing medical problems include history of atrial fibrillation, alcohol dependence, obesity, COPD, heart failure, hyperlipidemia, obesity hypoventilation syndrome, venous stasis dermatitis, and poor general hygiene. PAST SURGICAL HISTORY: Unknown. SOCIAL HISTORY: He lives alone. History of significant alcohol abuse and history of chronic smoking as well. ALLERGIES: NO KNOWN DRUG ALLERGIES HAVE BEEN DOCUMENTED. MEDICATIONS: Home medications were reviewed and current medications include sodium bicarbonate, phenylephrine, albumin, and sodium bicarbonate. REVIEW OF SYSTEMS: Not obtainable from the patient due to his mentation. PHYSICAL EXAMINATION: GENERAL: Martin is obese. He appears critically ill, intubated. He is on pressors. NECK: Supple. HEENT: Mucosa is dry. LUNGS: Bilateral rhonchi. HEART: S1, S2 heard without any gallop. ABDOMEN: Obese, soft, nontender. EXTREMITIES: With stasis dermatitis with possible maggots. VITAL SIGNS: Blood pressure was 93/60 with pressors and temperature 95.2. He has a thermal blanket on. LABORATORY DATA: The CT scan was reviewed. Hemoglobin 11.4, platelets 232. Sodium 130, potassium 5.3, bicarb of 10, BUN 34, and creatinine 4.71. Lactic acid 11.7 on admission. ABG showed a pH of 7.04 with a bicarb of 17; earlier this morning, pH of 7.03 with a bicarb of 8. PROBLEMS: 1. Acute kidney injury. 2. Severe metabolic acidosis. 3. Hyperkalemia. 4. Shock. 5. Anemia. 6. The acute kidney injury is most likely due to ATN. There is no evidence of obstruction. Underlying glomerulonephritis or interstitial nephritis cannot be ruled out yet. 7. He has severe acidosis. I agree with initiating dialysis to correct the acidosis while we are evaluating the etiology for the acute kidney injury. 8. We will reach out to the family and if the family agrees, we will proceed with dialysis. I will follow him closely along with the team. Shubham Trujillo MD BPA/MODL / [phone]
--- NOTE | 2021-02-15 12:09 | P.PCNCC_ITS ---
Procedures Date of Service Date of Service: 02/15/21 Central Line Placement Right IJ: Central Line Comments: PROCEDURE:? Insertion right internal jugular Davin triple lumen hemodialysis catheter. INDICATION:? Acute renal failure. ANESTHESIA:? Local plus propofol infusion. PROCEDURE:? Vascular ultrasound was used to examine the right neck.? A large compressible internal jugular vein was noted, low and lateral to the carotid artery.? The right neck was widely prepped and draped in full sterile fashion.? Local anesthesia was applied to the RIJV insertion site.? The right IJ vein was visualized with the transducer oriented longitudinally. The vein was cannulated directly under continous US visualization on the 1st pass of the 18 gauge thin wall.? The Davin catheter kit wire was threaded without incident.? The tract was dilated sequentially x 2. The 12 Luxembourgish by 13 cm triple-lumen hemodialysis catheter was advanced into the vein up to the hub via the Seldinger technique without incident.? There was good blood return x3.? The catheter was sutured x2 and a Biopatch and dry sterile dressing were applied. The patient tolerated the procedure well w no complications. (No CXR was done bec shortly after, the family decided on CENTRAL STERILE TECH status.) Consent for Procedure: Emergent-no informed consent obtained
--- NOTE | 2021-02-15 12:09 | W.PM.CCHP ---
Procedures Date of Service Date of Service: 02/15/21 Arterial Line Arterial Line Comments: PROCEDURE:? Insertion left radial arterial line. Indications:? Shock and acute respiratory failure. Anesthesia:? Local and propofol sedation. The left radial artery was identified by ultrasound.? Measured 3-4mm.? The wrist was then prepped and draped in full sterile fashion.? Local anesthesia was infiltrated.? The artery was cannulated under US guidance with the 20g thin wall on the first pass and the wire advanced without incident.? The 20g x 4cm cannula was advanced over the wire via Seldinger technique and hooked up to pressure, with a good waveform.? The catheter was then sutured in place with 3-0 silk x 3.? Benzoin and a dry sterile dressing was applied. The patient tolerated the procedure well with no complications. Consent: Emergent-no informed consent obtained
[2021-02-15] MEDS: HYDROmorphone HCl 2 MG/ML VIAL IVPUSH (12:16)
--- NOTE | 2021-02-15 13:30 | PC.NURSE ---
Pt was admitted to ICU for acute renal failure, requiring urgent dialysis. Pt supposedly suffered from a fall at home without head strike and was brought into the ED by EMS. Pt restless, combative, with poor air exchange and VBG results noted in ICU. Triple lumen catheter inserted early this morning by night zinc plate grainer. Decision made by day provider to intubate, insert a dialysis catheter, and insert an rosy to closely monitor BP as pt was started on pressure support for low MAPs. Pt intubated with RN, respiratory, and MD bedside at approximately 0800. Dialysis catheter placed successfully at 0900 as well as the L radial arterial line at approximately 0930. OG placed by RN, placement confirmed. Pt was tachycardic with HR in the 150s and started on diltiazem gtt per MD order. At approximately 1100, case reviewer received a call back from pt's healthcare proxy who made the decision not to advance care and change pt's code status to comfort measures only. Pt taken off all drips except for propofol for comfort and extubated at approximately 1130. RN administered Dilaudid IVP for comfort and time of was pronounced at 1220 by MD. Family notified by case reviewer. Organ bank notified at 1300 and pt was denied on both accounts for organ donation (case#: [id number]). Pt remains a medical claims analyst case and post-mortem care was provided per hospital policy.
--- NOTE | 2021-02-15 15:04 | PC.NURSE ---
Pt denied by hospitalist medical director Elayne Hidalgo (case#: [id number]).
--- NOTE | 2021-02-15 20:18 | P.DN_ITS ---
Discharge Sum: Prov Provider Primary care physician: Unknown Physician Admitting clinician: January Joseph Attending physician on admission: Cristian Olivas Consults: Nephrology, Dr. Shubham Trujillo Pronouncing clinician: Cristian Olivas Discharge Sum: Diag PCOD Cause of : Septic shock Contributing Factors (1) Metabolic acidosis: (2) IFRAH (acute kidney injury): (3) Severe sepsis: (4) Heart failure with reduced ejection fraction and diastolic dysfunction: (5) Alcohol dependence: (6) Lymphedema, not elsewhere classified: (7) Fall: (8) Acute bilateral venous stasis dermatitis: (9) COPD (chronic obstructive pulmonary disease): (10) Hyperlipemia: (11) Hypertension: (12) Atrial fibrillation with rapid ventricular response: (13) Morbid obesity: (14) Obesity hypoventilation syndrome: Discharge Sum: Summary Date and Time Date of admission: 02/15/21 05:23 Date of : 02/15/21 Time of : 12:20 Summary Details: Pt is a 61-year-old male with morbid obesity, COPD on 4L home oxygen, atrial fibrillation on Xaralto, right sided heart failure, diastolic heart failure, EF 45%-50% on 03/25, alcohol dependence, HTN, HLD, chronic wounds, bilateral LE edema, every day smoker who is brought in by EMS for patient's state fall at home without head strike or LOC? Patient reports some mild dizziness prior to the fall.? Pt also endorsed cough and chest discomfort for approx 1 month. When asked about the open wounds across his chest/back/arms patient states that he chronically scratches himself.??Pt was alert and oriented to self and place only. Pt uses a cane or walker at home, he lives upstairs from his sister. Pt labs notable for metabolic acidosis, WBC 17.5, PT 18.2, INR 1.6, VBG 7.03/30/43/8/54/-21.1, Na 128, K5.2, Cl 95, bicarb 5, BUN 33, Cr 4.79, lactic acid 11.7, albumin 1.8. Patient was given 1 L of normal saline, sepsis fluids were reduced due to his heart failure, cefepime and started on a bicarb drip. Once patient was brought up to the ICU, 1L NS drip stopped, he was given 4 IV pushes of 50 mEq bicarb, 2 x 100mls 25% albumin, 2g Vanco, phenylephrine was titrated up, pt was put on Long hugger, TLC, dialysis catheter, A-line were placed and patient was intubated. Patient's family and HCP, Jeffrey Pearce, advised the patient would not want to be intubated and asked us to withdraw care and let him pass peacefully, be made comfort measures. Pt taken off all drips except for propofol for comfort and extubated at approximately 1130. Pt passed peacefully at 12:20pm. Additional Data Confirmation of as documented by pronouncing clinician: no pulse, no respirations and no heart sounds Family: contacted Attending/PCP notified?: Yes Attending physician: Cristian Olivas MD Was code activated?: No Autopsy requested?: No worker's compensation claims examiner notified?: No Organ bank notified?: Yes Advance directives: Yes Hospice patient?: No
--- NOTE | 2021-02-18 13:43 | P.DN_ITS ---
Discharge Sum: Prov Provider Primary care physician: Unknown Physician Admitting clinician: Cristian Olivas Attending physician on admission: Cristian Olivas Pronouncing clinician: Cristian Olivas Discharge Sum: Diag Contributing Factors (1) Metabolic acidosis: (2) IFRAH (acute kidney injury): (3) Severe sepsis: (4) Heart failure with reduced ejection fraction and diastolic dysfunction: (5) Alcohol dependence: (6) Lymphedema, not elsewhere classified: (7) Fall: (8) Acute bilateral venous stasis dermatitis: (9) COPD (chronic obstructive pulmonary disease): (10) Hyperlipemia: (11) Hypertension: (12) Atrial fibrillation with rapid ventricular response: (13) Morbid obesity: (14) Obesity hypoventilation syndrome: Discharge Sum: Summary Date and Time Date of admission: 02/15/21 05:23 Date of : 02/15/21 Time of : 12: Summary Details: ? NOTE DISCHARGE DIAGNOSES: 1. Underlying supermorbid obesity. 2. KAREN. 3. Underlying COPD w chronic CO2 retention 4. Underlying chronic hypoxemic and hypercarbic resp failure. 5. Underlying RHF. 6. Underlying alcoholism. 7. Shock.? Most likely septic shock. 8. Afib w RVR. 9. Bilateral pulmonary infiltrates, most likely pulmonary edema. 10. Acute respiratory failure 2? bilat pulmon infiltrates and severe metabolic acidosis. 11. Acute renal failure. 12. Severe metabolic acidosis. 13. Septic shock.? Source not identified. Early on Feb 15, Mr. Pearce [place] [facility] [place]. The patient was a 61-year-old male with past medical history of super morbid obesity and severe alcoholism. ?Also had hypertension, KAREN, diastolic heart failure, EF 45-50%, right heart failure, COPD, every day smoker, chronic wounds, and bilateral lymphedema. ?Supposedly wore oxygen 24 hours at home. ?[facility] labs showed proof of chronic CO2 retention. ?Frequent medication noncompliance. ?The patient also had chronic atrial fibrillation and was on Xarelto. ?Reportedly ambulated with a cane and a walker. The patient had [place] [facility] [place]. ?He was also admitted to the ICU at [place] in April of 2019 w hypoxemic and hypercapnic respiratory failure requiring BiPAP support, secondary to exacerbation of underlying heart failure. HISTORY OF PRESENT ILLNESS: ?Early Feb 15, the patient fell and could not get up. ?He was found on the floor at home. ?EMS was called and the patient was BIBA to the ED. ?In the ED, the patient was unkempt. ?He was reportedly alert and oriented. ?He was tachypneic with increased work of breathing, and sat 90% on 3.5 L oxygen. ?He was hypotensive and hypothermic. ?Lower extremities showed severe chronic lymphedema. ?The patient had large open sores all over his body. Labs in the ED were notable for white count of 17, INR 1.6, BUN/creatinine 33/4.7 (previously 8/0.6), bicarb 5, potassium 5.2, sodium 128, glucose 104, albumin 1.8, lactate 11, lipase 259. ?Venous blood gas showed 7.03/30/-21. ?Alcohol level was negative. ?No other tox screen was done. ?COVID JAYNE was negative. Head CT showed no acute pathology. ?Chest CT showed bilateral pulmonary infiltrates most c/w pulmon edema.? Abdominal/pelvic CT showed no acute abnormalities. Blood cultures were drawn and the patient was given fluids, antibiotics, and bicarbonate, and admitted to the ICU.? He was not making any urine, and his bladder was empty.? A central line was placed.? The patient was readily interactive, but clearly encephalopathic/delirious.? Breathing was moderately labored.? Sat on nasal cannula oxygen was 89%.? Heart rate was 130?s, atrial fibrillation.? Blood pressure was 92/61 on Rogelio-Synephrine 1.5 mcg.? Temperature was 93.2 degrees.? The patient was very large and had severe lower extremity lymphedema.? He had multiple large open wounds around his whole body.? He was making no urine. Repeat labs after bicarbonate showed steady renal indices, bicarb up to 10, potassium 5.3, Procalcitonin was 66.? VBG showed 7.19/31/-14. Bedside echo was notable for : ?1. LV wall thickness probably normal. ?2. The left ventricle was poorly visualized.? Best view was subcostal.? Overall function looked normal.? Ejection fraction impossible to quantitate, but probably at least 40-50%.? Could well be normal.? No gross RWMAs noted. ?3. Right ventricular cavity was clearly large, with RV:LV cavity ratio at least 1.5. ?4. Both atria were large. ?5. No MR on color flow. ?6. 2+ TR with a medial eccentric jet by color-flow.? CWD envelope measured 2m/sec.? Gradient 16mm ?7. IVC was unable to be imaged. The trachea was intubated and a dialysis catheter was placed.? Plans were made for urgent hemodialysis. Late that morning, we were able to locate the patient's brother Jeffrey who was his healthcare proxy.? According to Jeffrey, the patient did not take care of himself.? His life was terrible, he had been suffering greatly, and had expressed the wish to on numerable occasions.? He had been in and out of the hospital. We also talked with Jeffrey?s Rashawn.? She is a nurse at [employer], very medically knowledgeable, with an immediate grasp of the situation, and had an excellent prospective on Favian's life.? She was very clear and insistent that Favian would never have wanted any critical care management, nor would have Jeffrey or Favian's sisters wanted that.? She repeated virtually everything Jeffrey told us. We talked to Jeffrey again.? He requested that we discontinue all current management and let Favian .? He told us that no one wanted to come in to see Favian before he dies.? We agreed to his wishes. We gave the patient an hour to recover spontanous respiratory efforts.? We made him comfortable with propofol and dilaudid.? The patient peacefully and comfortably at 12:21pm. The director biomedical engineering was notified.? The case was declined.? Case# [id number]. Additional Data Attending physician: Cristian Olvias MD
--- NOTE | 2021-02-25 14:03 | PM.SEPSISNOT ---
Sepsis Bolus Exclusion Sepsis Bolus Exclusion CHF/Renal Failure This patient met severe sepsis criteria due to the following condition(s):: Lactate>=4mmol/L In my clinical judgement the administration of 30 ml/kg of crystalloid would be detrimental to this patient due to the patient's following conditions:: Stage III or IV Chronic Kidney Disease (GFR<30) Replace the 30 mls/kg with: Crystalloids amount given in mls:: 1,000 Colloids amount given in mls:: 0 Course Course Hospital Course: Late entry from initial evaluation. Patient was anuric with renal failure, unknown NYHA classification but since a selection is required for this form, Class IV was chosen as clinical decision to hold sepsis fluid administration volumes. Vital Signs Vital signs: Vital Signs Pulse Rate 130 H 02/15/21 02:08 Respiratory Rate 22 H 02/15/21 02:08 Pulse Oximetry 90 L 02/15/21 02:08 Temperature 97.3 F 02/15/21 12:00 Pulse Rate 135 H 02/15/21 12:00 Respiratory Rate 10 L 02/15/21 12:00 Blood Pressure 45/33 L 02/15/21 12:00 Pulse Oximetry 68 L 02/15/21 12:00
--- NOTE | 2021-03-22 06:07 | P.CDIR_ITS ---
Documented by User: Makayla Gerber CCS, CDIS 03/22/21 06:14 Retrospective Query PHYSICIAN'S DOCUMENTATION REQUEST Date of Query: 03/22/2107 Patient Name: Martin Pearce Admit Date: 02/15/21 Dear Doctor, A review of the medical record indicates additional documentation may be needed. Please review below and update the documentation accordingly. Clinical Indicators: Risk Factors/Clinical Indicators/Treatments PN: 02/15 - Patient was readily interactive but clearly encephalopathic/delirious, labored breathing. Dx: Septic shock, IFRAH, alcoholism. Hypotensive, hypothermic, severe metabolic and lactic acidosis, chronically ill. Based on the above, please further specify, in the Progress Notes, the known or suspected type of the documented encephalopathic: Encephalopathy: * Metabolic * Septic * Toxic * Toxic metabolic * Anoxic * Alcoholic * Other (please specify) * Unable to determine Use of terms such as suspected, likely, concern for, or probable (associated with a specific diagnosis that is being evaluated, monitored, or treated as if it exists) are acceptable and can be coded in the inpatient setting, when documented at the time of discharge. Thank you, Makayla Gerber CCS, CDIS Extension: [phone] Please use your independent medical judgment in providing your response. THIS QUERY IS PART OF THE PERMANENT MEDICAL RECORD Documented by User: Cristian Olivas MD 03/24/21 22:17 Retrospective Query Provider Response: Septic Encephalopathy
== END 2021-02-15 15:06 | disposition expired | DRG 871 ==
LOC: HO.ED 02:52 → HO.ICU 05:35
PROVIDERS: Admitting Provider Physician Assistant; Emergency Provider Student in an Organized Health Care Education/Training Program; PCP Internal Medicine; Visit Provider Anesthesiology
DX: A41.9 Sepsis, unspecified organism (principal); R65.21 Severe sepsis with septic shock; N17.0 Acute kidney failure with tubular necrosis; G93.41 Metabolic encephalopathy; E87.2 Acidosis; F10.280 Alcohol dependence with alcohol-induced anxiety disorder; E66.2 Morbid (severe) obesity with alveolar hypoventilation; Z68.42 Body mass index [BMI] 45.0-49.9, adult; I50.42 Chronic combined systolic (congestive) and diastolic (congestive) heart failure; G93.40 Encephalopathy, unspecified; E78.5 Hyperlipidemia, unspecified; J44.9 Chronic obstructive pulmonary disease, unspecified; I87.2 Venous insufficiency (chronic) (peripheral); I48.91 Unspecified atrial fibrillation; D64.9 Anemia, unspecified; F17.210 Nicotine dependence, cigarettes, uncomplicated; Z71.6 Tobacco abuse counseling; Z99.81 Dependence on supplemental oxygen; Z91.19 Patient's noncompliance with other medical treatment and regimen; Z20.822 Contact with and (suspected) exposure to COVID-19; Z79.01 Long term (current) use of anticoagulants; Z79.899 Other long term (current) drug therapy; Z51.5 Encounter for palliative care
CPT/HCPCS: 36415; 70450; 71045; 71250; 74176; 80053; 82077; 82803; 83605; 83690; 83735; 83880; 84145; 84484; 85025; 85610; 86850; 86900; 86901; 87040; 87635; 93005; 93308; 94002; 94003; 94799; 96361; 96365; 96375; 99284; 99285; 99291; J0171; J0692; J1170; J2250; J2370; J3370; P9047